=== PATIENT | male | born 1925 | race Caucasian/White ===

== ENCOUNTER 2016-04-24 11:24 | Inpatient (IN) | payer MEDICARE, BC ==
[~2016-04-24] VITALS: Ht 180.3 cm; Wt 97.3 kg
[~2016-04-24 11:24] MED LIST: AMLO5TAB2 PO; ASPI325T PO; CYAN1000P SQ; DULO1CAP2 PO; LISI-515 PO; METO25TA3 PO; MIRA33504 PO; POLYSOL14 EACH EYE; PRAV80TA2 PO; TYLE325T PO; VITA100064 PO
[2016-04-24 11:33] VITALS: BP 146/76; PULSE 60; RESP 20; TEMP 99; O2SAT 90
[2016-04-24 11:44] VITALS: O2SAT 95
[2016-04-24] MEDS ORDERED: RESP: ALBUTEROL 2.5 MG/IPRATROPIUM 0.5 MG NEB (SCH) NEB ONE ×2 (12:00)
--- NOTE | 2016-04-24 12:04 | PD ---
HPI Chief Complaint: Altered Mental Status Time Seen by Provider: 11:53 Travel History International Travel<30 days: No Contact w/Intl Traveler<30days: No Traveled to known affect area: No History of Present Illness HPI This patient is a [facility] resident who was sent primarily for evaluation of cough. He reports a dry hacking cough for 2-3 days. He denies fever or shortness of breath or chest pain. He has been a bit congested. Staff reported that he had some moments of confusion. He denies headache or head injury. He says in general he is doing okay. Symptoms severity is mild to moderate. No alleviating factors. Duration 2-3 days PFSH Past Medical History AAA: Yes (THORACIC AORTIC ANEURYSM) Atrial Fibrillation: Yes Autoimmune Disease: No Anxiety: Yes Depression: Yes Heart Rhythm Problems: Yes Cardiac Catheterization: Yes (CORONARY STENT) Cardiovascular Problems: Yes High Cholesterol: Yes Cerebrovascular Accident: Yes Coronary Artery Disease: Yes (RHEUMATIC AORTIC VALVE DISEASE ) Dementia: Yes (MILD) Diabetes: Yes (PRE-DIABETIC CONTROLLED WITH DIET) Patient Takes Glucophage: Yes Endocrine: Yes Gastrointestinal Disorders: Yes (HEMORRHOIDS) GERD: Yes Hiatal Hernia: Yes Hypertension: Yes Musculoskeletal: Yes (DDD OF CSP, OSTEOARTHRITIS) Neurologic: Yes (NEUROPATHY) Psychiatric: No Respiratory: Yes (PUULOMNARY EMBOLUS) Integumentary: Yes (BASAL CELL CA) Pancreatitis: Yes Pneumonia: Yes Thyroid Disease: Yes (GOITER ) Triglycerides - High: Yes Tetanus Vaccination: Unknown Past Surgical History Coronary Stent: Yes Genitourinary Surgery: Yes Social History Alcohol Use: No Tobacco Use: No Substance Use: No Allergies-Medications (Allergen,Severity, Reaction): Coded Allergies: No Known Allergies (Verified , 05/19/14) Reported Meds & Prescriptions Reported Meds & Active Scripts Active Reported [Robitussin Dm] 5-10 Ml PO Q6HR PRN ROBITUSSIN COUGH-CHEST CONGESTION 10MG-200MG/5ML Tessalon Perles (Benzonatate) 100 Mg Cap 100 Mg PO TID PRN Mucinex ER 12 HR (Guaifenesin) 600 Mg Rishi 600 Mg PO BID PRN Dulcolax Supp (Bisacodyl) 10 Mg Supp 10 Mg DE DAILY PRN [place] Opth Drops (Ketotifen Opth Drops) 0.025% Drops 1 Drop EACH EYE BID Tylenol (Acetaminophen) 325 Mg Tab 650 Mg PO Q6H PRN not to exceed 3000mg Tylenol in a 24 hr period Cyanocobalamin Inj (Cyanocobalamin) 1,000 Mcg/Ml Inj 1,000 Mcg SQ MONTHLY Vitamin D (Cholecalciferol) 1,000 Unit Tab 1,000 Units PO DAILY Duloxetine DR (Duloxetine HCl) 30 Mg Capdr 30 Mg PO DAILY Tylenol (Acetaminophen) 325 Mg Tab 650 Mg PO BID Miralax Powder (Polyethylene Glycol 3350 Powder) 17 Gm Powd 17 Gm PO MOWEFR Mix 1 capful (17gm) with 4-8 oz of water on Thursday,Thursday and Thursday-Hold for loose BM Amlodipine (Amlodipine Besylate) 5 Mg Tab 5 Mg PO BID Metoprolol Tartrate 25 Mg Tab 12.5 Mg PO BID Aspirin 325 Mg Tab 325 Mg PO DAILY Pravastatin 80 Mg Tab 80 Mg PO HS Lisinopril 20 Mg Tab 20 Mg PO DAILY Artificial Tears Opth Drops (Polyvinyl Alcohol-Povidone Opth Drops) 0.5-0.6% Soln 1 Drop EACH EYE BID PRN Review of Systems General / Constitutional: No: Fever Eyes: No: Visual changes HENT: Positive: Congestion, No: Headaches Cardiovascular: No: Chest Pain or Discomfort Respiratory: Positive: Cough, No: Shortness of Breath Gastrointestinal: No: Abdominal Pain Genitourinary: No: Dysuria Musculoskeletal: No: Pain Skin: No Rash Neurologic: Positive: Change in Mentation, No: Weakness Psychiatric: No: Depression Endocrine: No: Polydipsia Hematologic/Lymphatic: No: Easy Bruising Physical Exam Narrative GENERAL: Well-nourished, well-developed patient in no apparent distress. SKIN: Warm and dry. HEAD: Atraumatic. Normocephalic. EYES: Pupils equal and round. No scleral icterus. No injection or drainage. ENT: No nasal bleeding or discharge. Mucous membranes pink and moist. NECK: Trachea midline. No JVD. CARDIOVASCULAR: Regular rate and rhythm. No murmur appreciated. RESPIRATORY: No accessory muscle use. Some diffuse rhonchi with a rare expiratory wheeze. Breath sounds equal bilaterally. GASTROINTESTINAL: Abdomen soft, non-tender, nondistended. Hepatic and splenic margins not palpable. MUSCULOSKELETAL: No obvious deformities. No clubbing. No cyanosis. No edema. NEUROLOGICAL: Awake and alert. No obvious cranial nerve deficits. Motor grossly within normal limits. Normal speech. PSYCHIATRIC: Appropriate mood and affect; insight and judgment seems reasonable. Data Data Last Documented VS Vital Signs Date Time Temp Pulse Resp B/P Pulse Ox O2 Delivery O2 Flow Rate FiO2 04/24/16 13:23 62 24 156/74 94 Nasal Cannula 2 04/24/16 11:33 99.0 Orders Electrocardiogram (04/24/16 11:38) Complete Blood Count With Diff (04/24/16 11:38) Comprehensive Metabolic Panel (04/24/16 11:38) Urinalysis - C+S If Indicated (04/24/16 11:38) Chest, Single Ap (04/24/16 11:38) Ct Brain W/O Iv Contrast(Rout) (04/24/16 11:38) Iv Access Insert/Monitor (04/24/16 11:38) Ecg Monitoring (04/24/16 11:38) Oximetry (04/24/16 11:38) Influenzae A/B Antigen (04/24/16 11:53) Albuterol-Ipratropium Neb (Duoneb Neb) (04/24/16 12:00) Albuterol-Ipratropium Neb (Duoneb Neb) (04/24/16 12:00) Cath For Specimen (04/24/16 13:05) Admit Order (Ed Use Only) (04/24/16 14:11) Labs Laboratory Tests Test 04/24/16 04/24/16 12:00 13:00 White Blood Count 6.3 TH/MM3 Red Blood Count 5.93 MIL/MM3 Hemoglobin 16.9 GM/DL Hematocrit 51.6 % Mean Corpuscular Volume 87.1 FL Mean Corpuscular Hemoglobin 28.5 PG Mean Corpuscular Hemoglobin 32.7 % Concent Red Cell Distribution Width 15.5 % Platelet Count 127 TH/MM3 Mean Platelet Volume 9.4 FL Neutrophils (%) (Auto) 75.3 % Lymphocytes (%) (Auto) 10.5 % Monocytes (%) (Auto) 11.0 % Eosinophils (%) (Auto) 2.3 % Basophils (%) (Auto) 0.9 % Neutrophils # (Auto) 4.8 TH/MM3 Lymphocytes # (Auto) 0.7 TH/MM3 Monocytes # (Auto) 0.7 TH/MM3 Eosinophils # (Auto) 0.1 TH/MM3 Basophils # (Auto) 0.1 TH/MM3 CBC Comment DIFF FINAL Differential Comment Sodium Level 139 MEQ/L Potassium Level 4.4 MEQ/L Chloride Level 103 MEQ/L Carbon Dioxide Level 26.7 MEQ/L Anion Gap 9 MEQ/L Blood Urea Nitrogen 16 MG/DL Creatinine 1.02 MG/DL Estimat Glomerular Filtration 69 ML/MIN Rate Random Glucose 101 MG/DL Calcium Level 9.1 MG/DL Total Bilirubin 0.8 MG/DL Aspartate Amino Transf 17 U/L (AST/SGOT) Alanine Aminotransferase 17 U/L (ALT/SGPT) Alkaline Phosphatase 76 U/L Total Protein 7.5 GM/DL Albumin 3.9 GM/DL Urine Color YELLOW Urine Turbidity CLEAR Urine pH 5.5 Urine Specific [place] 1.024 Urine Protein 100 mg/dL Urine Glucose (UA) NEG mg/dL Urine Ketones NEG mg/dL Urine Occult Blood TRACE Urine Nitrite NEG Urine Bilirubin NEG Urine Urobilinogen 2.0 MG/DL Urine Leukocyte Esterase NEG Urine WBC 2 /hpf Urine Squamous Epithelial <1 /hpf Cells Urine Bacteria RARE /hpf Urine Hyaline Casts 1 /lpf Urine Mucus FEW /lpf Microscopic Urinalysis Comment CULT NOT INDICATED MDM Medical Decision Making Medical Screen Exam Complete: Yes Emergency Medical Condition: Yes Medical Record Reviewed: Yes Differential Diagnosis Pneumonia, bronchitis, hypoxemia Narrative Course I have reviewed the patient's electronic medical record. Reviewed his [facility] paperwork and medication list as well IV placed CBC shows no leukocytosis or anemia Metabolic profile is normal LFTs is normal Urinalysis is clean I gave him multiple breathing treatments Influenza is negative Brain CT shows small vessel ischemic change Chest x-ray shows stable findings of right atelectasis and compensated card of megaly without consolidation Despite multiple nebulizer treatments he is still rhonchorous and is hypoxic on room air with saturation of 88-89% On 2 L cannula he is 93-94% Patient minimizes his symptoms but is coughing and dyspneic and had significant altered mental status changes today I reviewed with medical residents who will admit Diagnosis Primary Impression: Hypoxia Additional Impression: Altered mental status, unspecified Admitting Information Admitting Physician Requests: Admit Ji Rubi MD Apr 24, 2016 12:04
[2016-04-24 12:10] LABS: AUTOMATED NEUTROPHIL # 4.8 TH/MM3 (1.8-7.7); BASOPHIL # 0.1 TH/MM3 (0-0.2); BASOPHIL % 0.9 % (0.0-2.0); EOSINOPHIL # 0.1 TH/MM3 (0-0.4); EOSINOPHIL % 2.3 % (0.0-4.0); HEMATOCRIT 51.6 % (39.0-51.0); HEMO FLAGS DIFF FINAL; LYMPH % 10.5 % (9.0-44.0); LYMPHOCYTE # 0.7 TH/MM3 (1.0-4.8); MEAN CELL VOLUME 87.1 FL (80.0-100.0); MEAN CORPUSCULAR HEMOGLOBIN 28.5 PG (27.0-34.0); MEAN CORPUSCULAR HGB CONC 32.7 % (32.0-36.0); NEUT % 75.3 % (16.0-70.0); PLATELET COUNT 127 TH/MM3 (150-450); RED BLOOD COUNT 5.93 MIL/MM3 (4.50-5.90); RED CELL DISTRIBUTION WIDTH 15.5 % (11.6-17.2); WHITE BLOOD COUNT 6.3 TH/MM3 (4.0-11.0)
[2016-04-24] MEDS ORDERED: MUCI600T PO (12:22)
[2016-04-24] MEDS ORDERED: DULC10SU3 PR (12:22)
[2016-04-24] MEDS ORDERED: ALAW0.02 EACH EYE (12:22)
[2016-04-24] MEDS ORDERED: ROBISYP6 PO (12:22)
[2016-04-24] MEDS ORDERED: BENZ100 PO (12:22)
[2016-04-24 12:32] LABS: ALT (GPT) 17 U/L (12-78); ANION GAP 9 MEQ/L (5-15); AST (GOT) 17 U/L (15-37); BICARBONATE 26.7 MEQ/L (21.0-32.0); BLOOD UREA NITROGEN 16 MG/DL (7-18); CHLORIDE 103 MEQ/L (98-107); GLOMERULAR FILTRATION RATE 69 ML/MIN (>89); POTASSIUM 4.4 MEQ/L (3.5-5.1); SODIUM (NA) 139 MEQ/L (136-145)
[2016-04-24 12:34] LABS: ALKALINE PHOSPHATASE 76 U/L (45-117); TOTAL BILIRUBIN ADULT 0.8 MG/DL (0.2-1.0)
--- NOTE | 2016-04-24 13:15 | RADRPT ---
EXAM DATE/TIME: 04/24/2016 11:56 [facility] COMPARISON: CHEST SINGLE AP, July 23, 2015, 11:07. INDICATIONS : Cough. MEDICAL HISTORY : None. SURGICAL HISTORY : Pacemaker. ENCOUNTER: Initial ACUITY: 1 day PAIN SCORE: 0/10 LOCATION: Bilateral chest FINDINGS: Portable AP view of the chest demonstrate stable mild enlargement of the cardiac silhouette. Single-l ead cardiac pacing device remains present. Lungs are underinflated there is stable linear scar at the right lung base. No effusion, consolidation, or pneumothorax is visualized. Bones and soft tissues d emonstrate no acute finding. CONCLUSION: Stable chest x-ray without an acute finding identified. There is stable mild enlargement of the cardi ac silhouette with chronic scar at the right lung base. Sotero Kapoor MD on April 24, 2016 at 13:12 Board Certified Radiologist. This report was verified electronically.
[2016-04-24 13:23] VITALS: BP 156/74; PULSE 62; RESP 24; O2SAT 94
--- NOTE | 2016-04-24 13:41 | RADRPT ---
EXAM DATE/TIME: 04/24/2016 13:08 [facility] COMPARISON: CT BRAIN W/O CONTRAST, July 20, 2015, 14:35. INDICATIONS : Altered mental status; loss of urinary bladder control. RADIATION DOSE: 56.35 CTDIvol (mGy) MEDICAL HISTORY : Cerebrovascular disease. Dementia. Cardiovascular diseaseHypertension SURGICAL HISTORY : None. ENCOUNTER: Initial ACUITY: 1 day PAIN SCALE: 0/10 LOCATION: cranial TECHNIQUE: Multiple contiguous axial images were obtained of the head. Using automated exposure control and adj ustment of the mA and/or kV according to patient size, radiation dose was kept as low as reasonably a chievable to obtain optimal diagnostic quality images. FINDINGS: CEREBRUM: There is stable generalized atrophy. Ventricles are normal in size. There is stable mild periventricu lar white matter low-attenuation. A stable old lacunae is present in the left subinsular region. No evidence of midline shift, mass lesion, hemorrhage or acute infarction. No extra-axial fluid collect ions are seen. POSTERIOR FOSSA: The cerebellum and brainstem demonstrate no acute finding. The 4th ventricle is midline. The cerebe llopontine angle is unremarkable. EXTRACRANIAL: There is a mucous retention cyst in the right maxillary antrum. SKULL: The calvaria is intact. No evidence of skull fracture. CONCLUSION: 1. Stable noncontrast head CT. No acute finding is identified. 2. Chronic changes include mild cerebral atrophy and periventricular white matter low attenuation uche racteristic of chronic microvascular ischemia. Sotero Kapoor MD on April 24, 2016 at 13:37 Board Certified Radiologist. This report was verified electronically.
[2016-04-24 14:30] LABS: BACTERIA, URINE RARE /hpf; BLOOD, URINE TRACE (NEG); COMMENT (UR) CULT NOT INDICATED; CULTURE IF INDICATED CULT NOT INDICATED; GLUCOSE,URINE NEG (NEG); HYALINE CAST, URINE 1 /lpf (RARE); KETONE, URINE NEG (NEG); MUCUS URINE FEW /lpf (OCC); NITRITE,URINE NEG (NEG); PH, URINE 5.5 (5.0-8.5); SQUAMOUS EPITHELIAL CELL URINE <1 /hpf (0-5); URINE COLOR YELLOW (YELLW/STRAW)
--- NOTE | 2016-04-24 15:56 | HHI.HP ---
HPI Service Family Medicine Primary Care Physician Dr. Velasquez, [facility] Admission Diagnosis hypoxia,AMS Diagnoses: International Travel<30 Days: No Contact w/Intl Traveler<30days: No Known Affected Area: No History of Present Illness Patient is an 89-year-old male with a past medical history of hypertension, CAD , hyperlipidemia, aortic stenosis, stroke, CAD s/p multiple drug-eluting stents in 2003, A. fib with bifascicular block s/p VVI Pacemaker placement, and dementia that presented to the [place] ED from [facility] with a chief complaint of altered mental status, fever, and cough for the past 2-3 days. Although the patient denies current symptoms, his nurse at [facility] states that he had a fever up to 101.9F and was acting weird such as peeing uncontrollably all over his room. In looking back to past records, it appears that the pt has baseline confusion and has had episodes of random urination before. PCP is Dr. Velasquez, [facility] (Janee Wright MD R1) Review of Systems ROS Limitations: Altered Mental Status Constitutional: COMPLAINS OF: Fever ([facility] 101F [facility]), DENIES: Chills Eyes: DENIES: Eye pain Ears, nose, mouth, throat: DENIES: Nasal discharge Respiratory: COMPLAINS OF: Cough, DENIES: Shortness of breath Cardiovascular: DENIES: Chest pain Gastrointestinal: DENIES: Abdominal pain, Diarrhea, Nausea, Vomiting Genitourinary: DENIES: Dysuria Musculoskeletal: COMPLAINS OF: Muscle aches (upper mid back from coughing), DENIES: Joint pain, Joint Swelling Integumentary: DENIES: Pruritus, Rash Neurologic: DENIES: Headache, Paresthesias Other Review of systems was difficult to obtain (Janee Wright MD R1) Past Family Social History Past Medical History Aortic stenosis Atrial fibrillation ( Mr. Ng's son is a director of clinical trials. He had his father on a non-vitamin K dependent anticoagulant in the past but due to falls he had stopped all but aspirin therapy). CAD s/p multiple stents Chronic pain syndrome Mild dementia GERD Hyperlipidemia Hypertension Mitral regurgitation Neuropathy PE and DVTs RBBB and left anterior fascicular block on EKG Thoracic aortic aneurism CVA 05/2014; transient right facial droop, slurred speech and AMS Dementia Past Surgical History - hiatal hernia repar Reported Medications Reported Meds & Active Scripts Active Reported [Robitussin Dm] 5-10 Ml PO Q6HR PRN ROBITUSSIN COUGH-CHEST CONGESTION 10MG-200MG/5ML Tessalon Perles (Benzonatate) 100 Mg Cap 100 Mg PO TID PRN Mucinex ER 12 HR (Guaifenesin) 600 Mg Rishi 600 Mg PO BID PRN Dulcolax Supp (Bisacodyl) [address] DAILY PRN [place] Opth Drops (Ketotifen Opth Drops) 0.025% Drops 1 Drop EACH EYE BID Tylenol (Acetaminophen) 325 Mg Tab 650 Mg PO Q6H PRN not to exceed 3000mg Tylenol in a 24 hr period Cyanocobalamin Inj (Cyanocobalamin) 1,000 Mcg/Ml Inj 1,000 Mcg SQ MONTHLY Vitamin D (Cholecalciferol) 1,000 Unit Tab 1,000 Units PO DAILY Duloxetine DR (Duloxetine HCl) 30 Mg Capdr 30 Mg PO DAILY Tylenol (Acetaminophen) 325 Mg Tab 650 Mg PO BID Miralax Powder (Polyethylene Glycol 3350 Powder) 17 Gm Powd 17 Gm PO MOWEFR Mix 1 capful (17gm) with 4-8 oz of water on Thursday,Thursday and Thursday-Hold for loose BM Amlodipine (Amlodipine Besylate) 5 Mg Tab 5 Mg PO BID Metoprolol Tartrate 25 Mg Tab 12.5 Mg PO BID Aspirin 325 Mg Tab 325 Mg PO DAILY Pravastatin 80 Mg Tab 80 Mg PO HS Lisinopril 20 Mg Tab 20 Mg PO DAILY Artificial Tears Opth Drops (Polyvinyl Alcohol-Povidone Opth Drops) 0.5-0.6% Soln 1 Drop EACH EYE BID PRN (Janee Wright MD R1) Allergies: Coded Allergies: No Known Allergies (Verified , 04/24/16) Family History + CAD Social History Marrital Status: Living Situation: living in an assisted living unit at [facility] Work history: retired food counter attendant Tobacco: previous remote smoker Alcohol: none Illicit drug use: none (Janee Wright MD R1) Physical Exam Vital Signs Vital Signs Date Time Temp Pulse Resp B/P Pulse Ox O2 Delivery O2 Flow Rate FiO2 04/24/16 13:23 62 24 156/74 94 Nasal Cannula 2 04/24/16 11:53 94 Nasal Cannula 2 04/24/16 11:44 95 Nasal Cannula 2 04/24/16 11:33 99.0 60 20 146/76 90 Physical Exam GENERAL: This is a well-nourished, well-developed patient, in no apparent distress. SKIN: No rashes, ecchymoses or lesions. Cool and dry. No sacral ulcers noted HEAD: Atraumatic. Normocephalic. No temporal or scalp tenderness. EYES: Pupils equal round and reactive. Injected sclera suggestive of acute conjunctivitis. Extraocular motions intact. ENT: Nose without bleeding, purulent drainage or septal hematoma. Throat without erythema, tonsillar hypertrophy or exudate. Expectorated sputum present in oropharynx. Uvula midline. Airway patent. NECK: Trachea midline. No JVD or lymphadenopathy. Supple, nontender, no meningeal signs. CARDIOVASCULAR: Irregular rhythm RESPIRATORY: Mild wheezing in bibasilar lung fong. No increased work of breathing or use of accessory muscles GASTROINTESTINAL: Abdomen soft, non-tender, nondistended. No hepato-splenomegaly , or palpable masses. No guarding. MUSCULOSKELETAL: Extremities without clubbing, cyanosis, or edema. No joint tenderness, effusion, or edema noted. No calf tenderness. NEUROLOGICAL: Awake and alert. Cranial nerves II through XII intact. Motor and sensory grossly within normal limits. Five out of 5 muscle strength in all muscle groups. Normal speech. Intact finger to nose Laboratory Laboratory Tests Test 04/24/16 04/24/16 12:00 13:00 White Blood Count 6.3 Red Blood Count 5.93 Hemoglobin 16.9 Hematocrit 51.6 Mean Corpuscular Volume 87.1 Mean Corpuscular Hemoglobin 28.5 Mean Corpuscular Hemoglobin 32.7 Concent Red Cell Distribution Width 15.5 Platelet Count 127 Mean Platelet Volume 9.4 Neutrophils (%) (Auto) 75.3 Lymphocytes (%) (Auto) 10.5 Monocytes (%) (Auto) 11.0 Eosinophils (%) (Auto) 2.3 Basophils (%) (Auto) 0.9 Neutrophils # (Auto) 4.8 Lymphocytes # (Auto) 0.7 Monocytes # (Auto) 0.7 Eosinophils # (Auto) 0.1 Basophils # (Auto) 0.1 CBC Comment DIFF FINAL Differential Comment Sodium Level 139 Potassium Level 4.4 Chloride Level 103 Carbon Dioxide Level 26.7 Anion Gap 9 Blood Urea Nitrogen 16 Creatinine 1.02 Estimat Glomerular Filtration 69 Rate Random Glucose 101 Calcium Level 9.1 Total Bilirubin 0.8 Aspartate Amino Transf 17 (AST/SGOT) Alanine Aminotransferase 17 (ALT/SGPT) Alkaline Phosphatase 76 Total Protein 7.5 Albumin 3.9 Urine Color YELLOW Urine Turbidity CLEAR Urine pH 5.5 Urine Specific [place] 1.024 Urine Protein 100 Urine Glucose (UA) NEG Urine Ketones NEG Urine Occult Blood TRACE Urine Nitrite NEG Urine Bilirubin NEG Urine Urobilinogen 2.0 Urine Leukocyte Esterase NEG Urine WBC 2 Urine Squamous Epithelial <1 Cells Urine Bacteria RARE Urine Hyaline Casts 1 Urine Mucus FEW Microscopic Urinalysis Comment CULT NOT INDICATED Date/Time Procedure Status Source Growth 04/24/16 12:30 Influenza Types A,B Antigen ([facility]) - Final Complete Nasal Washing NEGATIVE FOR FLU A AND B ANTIGEN.... (Janee Wright MD R1) Result Diagram: 04/24/16 1200 04/24/16 1200 Imaging Last [address] 04/24/16 1138 Signed Impressions: Service Date/Time: April 13:08 - CONCLUSION: 1. Stable noncontrast head CT. No acute finding is identified. 2. Chronic changes include mild cerebral atrophy and periventricular white matter low attenuation characteristic of chronic microvascular ischemia. Sotero Kapoor MD Chest X-Ray 04/24/16 1138 Signed Impressions: Service Date/Time: April 11:56 - CONCLUSION: Stable chest x-ray without an acute finding identified. There is stable mild enlargement of the cardiac silhouette with chronic scar at the right lung base. Sotero Kapoor MD Course In the ED, the patient's O2 saturation was 90%, which improved to 93-94% with supplemental oxygen. He also received 2 DuoNeb treatments. EKG was performed which showed electronic ventricular paced rhythm with no signs of an acute myocardial infarction. (Janee Wright MD R1) Assessment and Plan Assessment and Plan 89-year-old male with a past medical history of hypertension, CAD, hyperlipidemia, aortic stenosis, stroke, CAD s/p multiple drug-eluting stents in 2003, A. fib with bifascicular block s/p VVI PM placement, and dementia presents with cough, dyspnea, fever symptoms concerning for pneumonia versus viral respiratory infection versus bronchitis. Chest x-ray showed stable mild enlargement of cardiac silhouette with no acute findings. He will be admitted today diagnosis of clinical pneumonia and hypoxia to be treated with IV antibiotics and breathing treatments. Code Status DNR Discussed Condition With Seen and examined with Dr. Monreal (Janee Wright MD R1) Attending Attestation The patient has been seen and examined. The chart and all resident notes have been reviewed. I agree that inpatient care is appropriate and that a two midnight stay is expected for the reasons documented in the resident history and physical. I have discussed this with the resident and certify the resident s order for inpatient admission. (Alexandra Monreal MD) Problem List: (1) Altered mental status, unspecified Status: Acute Plan: The source of the patient's altered mental status is unclear, [facility] reports multiple episodes of urinating in the patient's room -Noncontrast head CT is stable with no acute changes. Chronic changes indicative of chronic microvascular ischemia -Notably, the pt does have dementia -WBC WNL at 6.3 -Urinalysis negative for infection -At this time, the plan is mostly supportive care -Neurochecks every 4 hours -OOB with assistance -Fall precautions -Monitor Is & Os -Physical therapy consult (2) PNA (pneumonia) Status: Acute Plan: -Patient afebrile on admission but reported fever of 101.9 at [facility] -Chest x-ray does not indicate an acute pulmonary process -However patient has been coughing with sputum expectoration -Possible that patient has atypical pneumonia such as mycoplasma or viral upper respiratory infection -Legionella and pneumococcal antigen negative -Sputum Gram stain and culture pending -Adult respiratory panel pending -Will treat with Levaquin 750 mg IV every 24 hours -DuoNeb every 4 hours -Albuterol neb every 4 hours when necessary shortness of breath -Tessalon Perles and Mucinex for cough as needed -Zofran 4 mg IV every 6 hours as needed for nausea/vomiting -Continue home eyedrops for acute conjunctivitis -Continuous pulse oximetry with supplemental oxygen -Vital signs every 4 hours (3) Chronic medical problems Status: Acute Plan: CAD - continue aspirin 325 mg daily due to history of stents, metoprolol 12.5 mg by mouth twice a day HTN - continue amlodipine 5 mg by mouth twice a day, lisinopril 20 mg by mouth daily, hydralazine PO when necessary HLD - continue pravastatin 80 mg by mouth at bedtime (4) FEN/DVT PPX/GI PPX Status: Acute Plan: Fluids: Oral fluids only Electrolytes: Will monitor and replace as needed Nutrition: Heart healthy diet DVT Prophylaxis: Lovenox 40mg subcutaneous GI Prophylaxis: Protonix 40mg PO daily (Janee Wright MD R1) Physician Certification 2 Midnight Certification Type: Admission for Inpatient Services Order for Inpatient Services The services are ordered in accordance with Medicare regulations or non- Medicare payer requirements, as applicable. In the case of services not specified as inpatient-only, they are appropriately provided as inpatient services in accordance with the 2-midnight benchmark. Estimated LOS (days): 3 days is the estimated time the patient will need to remain in the hospital, assuming treatment plan goals are met and no additional complications. Post-Hospital Plan: Prison/[facility] (Janee Wright MD R1) Problem Qualifiers (1) PNA (pneumonia): Qualified Code: J18.9 - Pneumonia due to infectious organism, unspecified laterality, unspecified part of lung Janee Wright MD R1 Apr 24, 2016 15:56 Alexandra Monreal MD Apr 25, 2016 08:24
[2016-04-24] MEDS ORDERED: hydrALAZINE HCL 10 MG TAB PO PRN (16:45)
[2016-04-24] MEDS ORDERED: ONDANSETRON HCL 4 MG/2 ML VIAL IV PRN (16:45)
[2016-04-24] MEDS ORDERED: ACETAMINOPHEN 325 MG TAB PO PRN (16:45)
[2016-04-24] MEDS ORDERED: DOCUSATE SODIUM 50 MG/SENNA 8.6 MG TAB PO PRN (16:45)
[2016-04-24 16:55] VITALS: BP 147/70; PULSE 76; RESP 24; TEMP 98.9; O2SAT 94
[2016-04-24] MEDS ORDERED: RESP: ALBUTEROL 2.5 MG/IPRATROPIUM 0.5 MG NEB (SCH) NEB (17:00)
[2016-04-24] MEDS ORDERED: RESP: ALBUTEROL 2.5 MG/3 ML NEB (PRN) NEB ×2 (17:00→21:00)
[2016-04-24] MEDS ORDERED: guaiFENesin E.R. 600 MG TAB PO PRN (17:00)
[2016-04-24] MEDS ORDERED: POLYVINYL ALC-POVIDONE 1.4/0.6% PF OPTH SOLN 0.4 ML 30 CT EACH EYE PRN (17:15)
--- NOTE | 2016-04-24 17:21 | HHI.FPPN ---
Subjective Subjective Patient seen and examined. Case reviewed and discussed Please refer to resident H&P for further details regarding HPI, ROS, PMH, SurgHx , FH and SocHx In summary, patient is a pleasant 89yoM who resides at [facility] with a PMH significant for DVT wit PE, CAD s/p multiple drug-eluting stents in 2003, HTN, HL, CVA, and afib with bifascicular block s/p VVI PM placement. He presented to the ED today after report from his [facility] that he had suffered intermittent fevers, coughing over the last several days and had increased confusion. Dr. Velasquez cares for patient at [facility]. According to the patient's son, Hernandez, this is consistent behavior to prior episodes if infection. Upon arrival to the ED, the patient was noted to be satting at 90% which improved with supplemental oxygen therapy. He is seen resting in his hospital bed, denying any pain or specific complaints , but is actively coughing. Oxygen 92% on 2LNC. Hospital Objective Objective Last Impressions Head CT 04/24/16 1138 Signed Impressions: Service Date/Time: April 13:08 - CONCLUSION: 1. Stable noncontrast head CT. No acute finding is identified. 2. Chronic changes include mild cerebral atrophy and periventricular white matter low attenuation characteristic of chronic microvascular ischemia. Sotero Kapoor MD Chest X-Ray 04/24/168 Signed Impressions: Service Date/Time: April 11:56 - CONCLUSION: Stable chest x-ray without an acute finding identified. There is stable mild enlargement of the cardiac silhouette with chronic scar at the right lung base. Sotero Kapoor MD Laboratory Tests - Abnormals Test 04/24/16 04/24/16 12:00 13:00 Red Blood Count 5.93 MIL/MM3 Hematocrit 51.6 % Platelet Count 127 TH/MM3 Neutrophils (%) (Auto) 75.3 % Monocytes (%) (Auto) 11.0 % Lymphocytes # (Auto) 0.7 TH/MM3 Estimat Glomerular Filtration 69 ML/MIN Rate Urine Protein 100 mg/dL Urine Occult Blood TRACE Urine Bacteria RARE /hpf Urine Mucus FEW /lpf Vital Signs 04/24/16 04/24/16 04/24/169/17 11:33 11:44 11:53 13:23 Temp 99.0 Pulse 60 62 Resp 20 24 B/P 146/76 156/74 Pulse Ox 90 95 94 94 O2 Delivery Nasal Cannula Nasal Cannula Nasal Cannula O2 Flow Rate 2 2 2 04/24/16 16:55 Temp 98.9 Pulse 76 Resp 24 B/P 147/70 Pulse Ox 94 O2 Delivery Nasal Cannula O2 Flow Rate 2 Physical exam GENERAL: Pleasantly confused elderly male, resting in bed. Awake and interactive. SKIN: Warm and dry without rash. HEAD: Normocephalic. AT EYES: No scleral icterus. Mild symmetric scleral injection, no drainage. NECK: Supple, trachea midline. Normal JVD, no palpable lymphadenopathy. CARDIOVASCULAR: Distant heart sounds with irregularly irregular rhythm, normal rate with 1/6 TWAN, no audible gallops or rubs. RESPIRATORY: Breath sounds with scant exp wheezing and coarseness at bilateral bases posteriorly, R>L. No accessory muscle use. No increased work of breathing. GASTROINTESTINAL: Abdomen soft, non-tender, nondistended. Obese. Normal active BS. MUSCULOSKELETAL: No cyanosis, or edema. No calf tenderness. BACK: Nontender without obvious deformity. No CVA tenderness. NEURO: Awake and alert. Able to follow commands. CN grossly intact. 5/5 strength x 4. Oriented x 2, unable to tell me the year. Assessment Assessment 89yoM admitted with: Hypoxia, increased confusion and bronchitis/clinical PNA PLAN PLAN Check influenza, legionella, strep antigens Supplemental oxygen as needed Empiric therapy with Levaquin If cough becomes productive, obtain sputum culture Breathing treatments OOB with assistance only as patient is a high fall risk PT Check UA Resume home medications Continue ASA given cardiac stenting I did discuss the case with the patient's son, Dr. Ng, who confirmed that patient is a DNR. Patient seen and examined. Case reviewed and discussed Agree with plan of care as discussed with me and documented in the resident note. Alexandra Monreal MD Apr 24, 2016 17:21
[2016-04-24] MEDS ORDERED: LEVOFLOXACIN 750 MG PREMIX INJ 150 ML IV SCH (18:00)
[2016-04-24 20:26] VITALS: BP 129/70
[2016-04-24 20:36] LABS: BOR. HOLMESII NOT DETECTED (NOT DETECT); BOR. PARA/BRONCH NOT DETECTED (NOT DETECT); BOR. PERTUSSIS NOT DETECTED (NOT DETECT); INFLUENZA B NOT DETECTED (NOT DETECT); RESP SYNCYTIAL VIRUS A NOT DETECTED (NOT DETECT); RESP SYNCYTIAL VIRUS B NOT DETECTED (NOT DETECT)
[2016-04-24] MEDS: amLODIPine BESYLATE 5 MG TAB PO SCH (20:55)
[2016-04-24] MEDS: METOPROLOL TARTRATE 25 MG TAB PO SCH (20:55)
[2016-04-24] MEDS: PRAVASTATIN SOD 80 MG TAB PO SCH (20:55)
[2016-04-24] MEDS: ENOXAPARIN SODIUM 40 MG/0.4 ML SYRINGE SQ SCH (20:56)
[2016-04-24] MEDS ORDERED: [UNRECOGNIZED DRUG - OTHER] EACH EYE SCH (21:00)
[2016-04-24] MEDS: RESP: ALBUTEROL 2.5 MG/IPRATROPIUM 0.5 MG NEB (SCH) NEB ×2 (21:00→23:53)
[2016-04-24 21:05] VITALS: BP 137/75; PULSE 72; RESP 20; TEMP 99.7; O2SAT 91
[2016-04-24] MEDS: BENZONATATE 100 MG CAP PO PRN (23:31)
[2016-04-25] VITALS (11 sets, daily range): BP systolic 113–165; BP diastolic 56–80; PULSE 60–73; RESP 18–20; TEMP 96.2–98.9; O2SAT 90–96
[2016-04-25] MEDS: RESP: ALBUTEROL 2.5 MG/IPRATROPIUM 0.5 MG NEB (SCH) NEB ×5 (04:17→20:06)
[2016-04-25] MEDS: amLODIPine BESYLATE 5 MG TAB PO SCH (08:16)
[2016-04-25] MEDS: CHOLECALCIFEROL (VIT D3) 1000 UNIT TAB PO SCH (08:16)
[2016-04-25] MEDS: METOPROLOL TARTRATE 25 MG TAB PO SCH (08:17)
[2016-04-25] MEDS: LISINOPRIL 20 MG TAB PO SCH (08:17)
[2016-04-25] MEDS: ASPIRIN EC 81 MG TABEC PO SCH (08:17)
[2016-04-25] MEDS: DULoxetine HCl DR 30 MG CAP PO SCH (08:28)
[2016-04-25] MEDS ORDERED: SYRINGE/BAG 1 EA PO SCH (09:00)
[2016-04-25] MEDS ORDERED: ASPIRIN 325 MG TAB PO SCH (09:00)
--- NOTE | 2016-04-25 09:16 | RADRPT ---
EXAM DATE/TIME: 04/25/2016 08:59 [place] COMPARISON: CHEST SINGLE AP, April 24, 2016, 11:56. INDICATIONS : Cough and shortness of breath. MEDICAL HISTORY : None. SURGICAL HISTORY : Pacemaker. Stent. ENCOUNTER: Initial ACUITY: 1 week PAIN SCORE: 0/10 LOCATION: Bilateral chest FINDINGS: Trace bibasilar atelectasis. No pleural effusion seen. No pneumothorax. Mild cardiomegaly is stable. Left subclavian transvenous pacer with pacing lead again noted. Coronary artery stents are seen. CONCLUSION: Minimal bibasilar atelectasis. Mild cardiomegaly unchanged. Sotero Maloney MD on April 25, 2016 at 9:13 Board Certified Radiologist. This report was verified electronically.
[2016-04-25 11:52] LABS: AUTOMATED NEUTROPHIL # 2.8 TH/MM3 (1.8-7.7); BASOPHIL % 0.5 % (0.0-2.0); EOSINOPHIL # 0.2 TH/MM3 (0-0.4); EOSINOPHIL % 3.4 % (0.0-4.0); HEMATOCRIT 45.8 % (39.0-51.0); HEMO FLAGS DIFF FINAL; LYMPH % 18.7 % (9.0-44.0); LYMPHOCYTE # 0.9 TH/MM3 (1.0-4.8); MEAN CELL VOLUME 87.5 FL (80.0-100.0); MEAN CORPUSCULAR HEMOGLOBIN 28.6 PG (27.0-34.0); MEAN CORPUSCULAR HGB CONC 32.8 % (32.0-36.0); MONO % 18.8 % (0.0-8.0); NEUT % 58.6 % (16.0-70.0); PLATELET COUNT 107 TH/MM3 (150-450); RED BLOOD COUNT 5.24 MIL/MM3 (4.50-5.90); RED CELL DISTRIBUTION WIDTH 15.1 % (11.6-17.2); WHITE BLOOD COUNT 4.8 TH/MM3 (4.0-11.0)
[2016-04-25 12:17] LABS: ALKALINE PHOSPHATASE 59 U/L (45-117); ALT (GPT) 14 U/L (12-78); ANION GAP 10 MEQ/L (5-15); AST (GOT) 17 U/L (15-37); BICARBONATE 28.5 MEQ/L (21.0-32.0); BLOOD UREA NITROGEN 17 MG/DL (7-18); CHLORIDE 102 MEQ/L (98-107); GLOMERULAR FILTRATION RATE 67 ML/MIN (>89); MAGNESIUM 2.1 MG/DL (1.5-2.5); POTASSIUM 3.9 MEQ/L (3.5-5.1); SODIUM (NA) 140 MEQ/L (136-145); TOTAL BILIRUBIN ADULT 0.7 MG/DL (0.2-1.0)
--- NOTE | 2016-04-25 13:51 | HHI.FPPN ---
Subjective Remarks No acute events overnight. Afebrile, vital signs stable. Patient hypoxic overnight requiring 2 L nasal cannula. Denies chest pain or shortness of breath. (Treva Carvajal MD R3) Objective Vitals Vital Signs Date Time Temp Pulse Resp B/P Pulse Ox O2 Delivery O2 Flow Rate FiO2 04/25/16 09:36 96 Nasal Cannula 2.00 04/25/16 07:52 94 04/25/16 04:22 91 Nasal Cannula 2.00 04/25/16 04:00 96.6 60 20 123/73 94 04/25/16 02:30 Nasal Cannula 2.00 04/25/16 00:38 19 04/25/16 00:00 90 Nasal Cannula 2.00 04/25/16 00:00 98.9 73 20 165/76 90 04/24/16 23:00 Nasal Cannula 2.00 04/24/16 21:05 99.7 72 20 137/75 91 04/24/16 20:26 72 20 129/70 94 Nasal Cannula 2 04/24/16 16:55 98.9 76 24 147/70 94 Nasal Cannula 2 I/O 04/24/16 04/24/16 04/24/16 04/25/16 04/25/16 04/25/16 07:00 15:00 23:00 07:00 15:00 23:00 Intake Total 240 ml Output Total 200 ml Balance -200 ml 240 ml Intake Oral 240 ml Output Urine Total 200 ml # Voids 1 2 # Bowel Movements 0 2 (Treva Carvajal MD R3) Result Diagram: 04/25/16 1126 04/25/16 1126 Imaging Last Impressions Chest X-Ray 04/25/16 0000 Signed Impressions: Service Date/Time: Monday, April 25, 2016 08:59 - CONCLUSION: Minimal bibasilar atelectasis. Mild cardiomegaly unchanged. Sotero Maloney MD Head CT 04/24/16 1138 Signed Impressions: Service Date/Time: April 13:08 - CONCLUSION: 1. Stable noncontrast head CT. No acute finding is identified. 2. Chronic changes include mild cerebral atrophy and periventricular white matter low attenuation characteristic of chronic microvascular ischemia. Sotero Kapoor MD Objective Remarks Gen.: No acute distress Head: Normocephalic. Atraumatic. EENT: Pupils equal round and reactive to light. Nose without drainage. Airway intact. Throat without injection. Cardiovascular: Irregularly irregular rhythm, normal rate with 1/6 TWAN, no audible gallops or rubs. Respiratory: Rhonchi and slight wheezes throughout. Abdomen: Soft, nontender, nondistended. No peritoneal signs. Musculoskeletal: No gross deformities. No edema. Skin: No obvious rashes or erythema. Neuro: Sensory and motor grossly intact. Cranial nerves II through XII grossly intact. A and O 2. (Treva Carvajal MD R3) A/P Assessment and Plan 89-year-old male with a past medical history of hypertension, CAD, hyperlipidemia, aortic stenosis, stroke, CAD s/p multiple drug-eluting stents in 2003, A. fib with bifascicular block s/p VVI PM placement, and dementia presents with cough, dyspnea, fever symptoms concerning for pneumonia versus viral respiratory infection versus bronchitis. Chest x-ray showed stable mild enlargement of cardiac silhouette with no acute findings. He was admitted with diagnosis of clinical pneumonia and hypoxia to be treated with IV antibiotics and breathing treatments. Discharge Planning To home likely tomorrow (Treva Carvajal MD R3) Attending Attestation Patient seen and examined with the resident team this am. Case reviewed and discussed Agree with plan of care as discussed with me and documented in the resident note. Patient more alert and closer to baseline today compared to admission. He was able to ambulate with PT 120 feet. Assisted with IS at the bedside this morning. Tolerating diet without difficulty. Will continue to encourage OOB with assistance and wean oxygen as tolerated ( Alexandra Monreal MD) Problem List: (1) Altered mental status, unspecified Status: Acute Plan: The source of the patient's altered mental status is unclear, [facility] reports multiple episodes of urinating in the patient's room. History of dementia. No leukocytosis, UA negative. -Noncontrast head CT is stable with no acute changes. Chronic changes indicative of chronic microvascular ischemia. -Patient with clinical pneumonia as probable source. (2) PNA (pneumonia) Status: Acute Plan: Patient with history of fevers and productive cough. Meets criteria for clinical pneumonia. Legionella and pneumococcal antigens negative. No leukocytosis. Chest x-ray clear. Patient continues to require supplemental oxygen. Levaquin 750 mg IV every 24 hours Duo nebs (3) Chronic medical problems Status: Acute Plan: CAD - continue aspirin 162 mg daily due to history of stents, metoprolol 12.5 mg by mouth twice a day HTN - continue amlodipine 5 mg by mouth twice a day, lisinopril 20 mg by mouth daily, hydralazine PO when necessary HLD - continue pravastatin 80 mg by mouth at bedtime (4) FEN/DVT PPX/GI PPX Status: Acute Plan: Fluids: Oral fluids only Electrolytes: Will monitor and replace as needed Nutrition: Heart healthy diet DVT Prophylaxis: Lovenox 40mg subcutaneous GI Prophylaxis: Protonix 40mg PO daily (Treva Carvajal MD R3) Problem Qualifiers (1) PNA (pneumonia): Qualified Code: J18.9 - Pneumonia due to infectious organism, unspecified laterality, unspecified part of lung Treva Carvajal MD R3 Apr 25, 2016 13:51 Alexandra Monreal MD Apr 25, 2016 16:21
[2016-04-25] MEDS ORDERED: LEVOFLOXACIN 750 MG TAB PO SCH (18:00)
--- NOTE | 2016-04-25 20:17 | EKG ---
Date Performed: 04/24/2016 Time Performed: 11:50:59 PTAGE: 89 years EKG: ELECTRONIC VENTRICULAR PACEMAKER ABNORMAL RHYTHM ECG PREVIOUS TRACING : 07/20/2015 14.12 Compared to the previous tracing, previously afib with slo w ventricular response DOCTOR: Moiz Gongora Interpretating Date/Time 04/25/2016 20:16:05
[2016-04-25] MEDS ORDERED: POLYETHYLENE GLYCOL 17 GM PKG PO SCH (21:00)
[2016-04-26] VITALS (11 sets, daily range): BP systolic 118–144; BP diastolic 59–82; PULSE 60–94; RESP 18–22; TEMP 96.5–97.6; O2SAT 90–98
[2016-04-26] MEDS: ENOXAPARIN SODIUM 40 MG/0.4 ML SYRINGE SQ SCH ×2 (00:16→21:04)
[2016-04-26] MEDS: METOPROLOL TARTRATE 25 MG TAB PO SCH ×3 (00:17→21:03)
[2016-04-26] MEDS: BENZONATATE 100 MG CAP PO PRN (00:17)
[2016-04-26] MEDS: amLODIPine BESYLATE 5 MG TAB PO SCH ×3 (00:17→21:03)
[2016-04-26] MEDS: PRAVASTATIN SOD 80 MG TAB PO SCH ×2 (00:18→21:03)
[2016-04-26] MEDS: RESP: ALBUTEROL 2.5 MG/IPRATROPIUM 0.5 MG NEB (SCH) NEB ×6 (04:31→19:35)
[2016-04-26 07:29] LABS: AUTOMATED NEUTROPHIL # 2.7 TH/MM3 (1.8-7.7); BASOPHIL % 0.3 % (0.0-2.0); EOSINOPHIL # 0.3 TH/MM3 (0-0.4); EOSINOPHIL % 6.7 % (0.0-4.0); HEMATOCRIT 46.3 % (39.0-51.0); HEMO FLAGS DIFF FINAL; LYMPH % 25.7 % (9.0-44.0); LYMPHOCYTE # 1.3 TH/MM3 (1.0-4.8); MEAN CELL VOLUME 87.8 FL (80.0-100.0); MEAN CORPUSCULAR HEMOGLOBIN 28.3 PG (27.0-34.0); MEAN CORPUSCULAR HGB CONC 32.2 % (32.0-36.0); MONO % 13.8 % (0.0-8.0); NEUT % 53.5 % (16.0-70.0); PLATELET COUNT 105 TH/MM3 (150-450); RED BLOOD COUNT 5.27 MIL/MM3 (4.50-5.90); RED CELL DISTRIBUTION WIDTH 15.1 % (11.6-17.2); WHITE BLOOD COUNT 5.1 TH/MM3 (4.0-11.0)
[2016-04-26 07:45] LABS: BICARBONATE 29.6 MEQ/L (21.0-32.0); POTASSIUM 4.1 MEQ/L (3.5-5.1)
[2016-04-26] MEDS: ASPIRIN EC 81 MG TABEC PO SCH (08:20)
[2016-04-26] MEDS: CHOLECALCIFEROL (VIT D3) 1000 UNIT TAB PO SCH (08:20)
[2016-04-26] MEDS: DULoxetine HCl DR 30 MG CAP PO SCH (08:20)
[2016-04-26] MEDS: LISINOPRIL 20 MG TAB PO SCH (08:20)
--- NOTE | 2016-04-26 08:54 | HHI.FPPN ---
Subjective Remarks Patient is doing well this morning. He states he feels better than yesterday. He understands he is in [facility]. However, he had to be told that he resides at [facility]. He is in good spirits and is making jokes throughout the interview. He had a bowel movement yesterday. No problems urinating. He is having some mild left upper neck musculoskeletal discomfort. Otherwise, he denies chest pain, fever, chills. (Robert Jimenes MD R2) Objective Vitals Vital Signs Date Time Temp Pulse Resp B/P Pulse Ox O2 Delivery O2 Flow Rate FiO2 04/26/16 08:26 Nasal Cannula 2.00 04/26/16 08:00 97.6 72 18 136/82 97 04/26/16 07:42 96 Nasal Cannula 2.00 04/26/16 04:33 93 21 04/26/16 04:07 97.1 63 20 121/65 92 04/26/16 02:00 Nasal Cannula 2.00 04/26/16 00:27 96.5 62 22 144/74 92 04/26/16 00:05 90 21 04/25/16 22:00 62 04/25/16 22:00 Nasal Cannula 2.00 04/25/16 21:00 Nasal Cannula 2.00 04/25/16 20:38 97.5 64 18 127/80 94 04/25/16 20:08 90 21 04/25/16 16:13 97.0 60 20 126/71 94 04/25/16 15:36 96.9 69 20 113/56 95 04/25/16 12:00 96.2 62 20 121/67 94 04/25/16 09:36 96 Nasal Cannula 2.00 I/O 04/25/16 04/25/16 04/25/16 04/26/16 04/26/16 04/26/16 07:00 15:00 23:00 07:00 15:00 23:00 Intake Total 240 ml 240 ml Output Total 2 ml Balance 240 ml 238 ml Intake Oral 240 ml 240 ml Output Urine Total 2 ml # Voids 2 1 2 # Bowel Movements 0 2 3 (Robert Jimenes MD R2) Result Diagram: 04/26/16 0700 04/26/16 0700 Imaging Last Impressions Chest X-Ray 04/25/16 0000 Signed Impressions: Service Date/Time: Monday, April 25, 2016 08:59 - CONCLUSION: Minimal bibasilar atelectasis. Mild cardiomegaly unchanged. Sotero Maloney MD Head CT 04/24/16 1138 Signed Impressions: Service Date/Time: April 13:08 - CONCLUSION: 1. Stable noncontrast head CT. No acute finding is identified. 2. Chronic changes include mild cerebral atrophy and periventricular white matter low attenuation characteristic of chronic microvascular ischemia. Sotero Kapoor MD Objective Remarks Gen.: No acute distress Head: Normocephalic. Atraumatic. EENT: Pupils equal round and reactive to light. Nose without drainage. Airway intact. Throat without injection. Cardiovascular: normal rate with 1/6 TWAN, no audible gallops or rubs. Respiratory: Rhonchi and slight wheezes throughout. Abdomen: Soft, nontender, nondistended. No peritoneal signs. Musculoskeletal: No gross deformities. No edema. Skin: No obvious rashes or erythema. Neuro: Sensory and motor grossly intact. Cranial nerves II through XII grossly intact. A and O 2. (Robert Jimenes MD R2) A/P Assessment and Plan 89-year-old male patient who resides from [facility] presented with altered mental status and hypoxemia on 04/24. He is currently improving with oxygen and antibiotics. Currently undergoing treatment for clinical pneumonia. Discharge Planning Likely today to [facility]. PT recommends PT at rehabilitation. (Robert Jimenes MD R2) Attending Attestation Patient seen and examined. Case reviewed and discussed Agree with plan of care as discussed with me and documented in the resident note. (Alexandra Monreal MD) Problem List: (1) Altered mental status, unspecified Status: Resolved Plan: This is likely the patient's baseline. History of dementia. -Noncontrast head CT is stable with no acute changes. Chronic changes indicative of chronic microvascular ischemia. -Patient with clinical pneumonia as probable source. See below (2) PNA (pneumonia) Status: Acute Plan: Patient with history of fevers and productive cough. Meets criteria for clinical pneumonia. Legionella and pneumococcal antigens negative. No leukocytosis. Chest x-ray clear. Patient continues to require supplemental oxygen. Levaquin 750 mg by mouth every 24 hours (day #3 of antibiotic treatment) Duo nebs Tessalon Perles Mucinex 600 mg by mouth twice a day when necessary nasal congestion Oxygen walk test today to assess home oxygen needs. (3) Physical deconditioning Status: Acute Plan: Physical therapy consulted. PT recommends PT at home. No equipment is needed as the patient has equipment. Nursing order to get patient out of the bed at least 3 times a day Oxygen walk test to assess for oxygen need (4) Chronic medical problems Status: Acute Plan: CAD - continue aspirin 162 mg daily due to history of stents, metoprolol 12.5 mg by mouth twice a day HTN - continue amlodipine 5 mg by mouth twice a day, lisinopril 20 mg by mouth daily, hydralazine PO when necessary HLD - continue pravastatin 80 mg by mouth at bedtime Depression - continue Cymbalta 30 mg by mouth daily Constipation - MiraLAX by mouth (hold for diarrhea) (5) FEN/DVT PPX/GI PPX Status: Acute Plan: Fluids: Oral fluids only Electrolytes: Will monitor and replace as needed Nutrition: Heart healthy diet DVT Prophylaxis: Lovenox 40mg subcutaneous GI Prophylaxis: Protonix 40mg PO daily (Robert Jimenes MD R2) Problem Qualifiers (1) PNA (pneumonia): Qualified Code: J18.9 - Pneumonia due to infectious organism, unspecified laterality, unspecified part of lung Robert Jimenes MD R2 Apr 26, 2016 08:54 Alexandra Monreal MD Apr 28, 2016 09:08
[2016-04-26] MEDS ORDERED: ASPI81TA11 PO (11:54)
[2016-04-26] MEDS ORDERED: LEVA750T PO (11:55)
--- NOTE | 2016-04-26 11:55 | HHI.DCPOC ---
Discharge Care Plan Diagnosis: (1) PNA (pneumonia) (2) Dementia (3) Altered mental status, unspecified (4) Physical deconditioning Goals to Promote Your Health * To prevent worsening of your condition and complications * To maintain your health at the optimal level Directions to Meet Your Goals Take your medications as prescribed Follow your dietary instruction Follow activity as directed Keep your appointments as scheduled Take your immunizations and boosters as scheduled If your symptoms worsen call your PCP, if no PCP go to Urgent Care Center or Emergency Room Smoking is Dangerous to Your Health. Avoid second hand smoke Call the 24-hour hour crisis hotline for domestic abuse at Robert Jimenes MD R2 Apr 26, 2016 11:55
--- NOTE | 2016-04-26 11:59 | HHI.FF ---
Face to Face Verification Diagnosis: (1) Hypoxia (2) Pneumonia (3) Physical deconditioning (4) Altered mental status, unspecified Physical Therapy Order: Evaluate and Treat, Improve ambulation, Strength and gait training Home Health Nursing Order: Medical education (Please teach caretakers to provide incentive spirometry at bedside 2-3 times each hour while awake) Signs/symptoms of disease process I have seen patient Braxton Ng on 04/26/16. My clinical findings support the need for the requested home health care services because: Ltd mobility - disease progression Patient has SOB Deconditioned w/ increased weakness Med compliance is questionable Limited ability to care for self High risk of falls I certify that my clinical findings support that this patient is homebound because: Impaired cognitive ability/safety Unsteady gait/balance Unsafe to leave home unassisted Robert iJmenes MD R2 Apr 26, 2016 11:59
[2016-04-26] MEDS ORDERED: MENTHOL LOZENGE BUCCAL PRN (12:00)
[2016-04-26] MEDS ORDERED: LEVOFLOXACIN 750 MG TAB PO ONE (12:15)
[2016-04-26] MEDS ORDERED: OXYGENTANK NAS.CANULA ×2 (13:32→15:15)
--- NOTE | 2016-04-26 16:45 | HHI.DS ---
Janee Wright MD R1 04/26/16 1645: Discharge Summary Admission Date Apr 24, 2016 at 14:20 Discharge Date: Apr 27, 2016 Admitting Diagnosis hypoxia,AMS (1) Altered mental status, unspecified Diagnosis: Secondary (2) PNA (pneumonia) Diagnosis: Principal (3) Physical deconditioning Diagnosis: Secondary (4) Chronic medical problems Diagnosis: Secondary Brief History Patient is an 89-year-old male with a past medical history of hypertension, CAD , hyperlipidemia, aortic stenosis, stroke, CAD s/p multiple drug-eluting stents in 2003, A. fib with bifascicular block s/p VVI Pacemaker placement, and dementia that presented to the [place] ED from [facility], [place] with a chief complaint of altered mental status, fever, and cough for the past 2-3 days. Although the patient denies current symptoms, his nurse at [facility], [place] states that he had a fever up to 101.9F and was acting weird such as peeing uncontrollably all over his room. In looking back to past records, it appears that the pt has baseline confusion and has had episodes of random urination before. PCP is Dr. Velasquez, [facility] CBC/BMP: 04/26/16 0700 04/26/16 0700 Significant Findings Laboratory Tests Test 04/24/16 04/24/16 04/25/16 04/26/16 12:00 13:00 11:26 07:00 Red Blood Count 5.93 MIL/MM3 (4.50-5.90) Hematocrit 51.6 % (39.0-51.0) Platelet Count 127 TH/MM3 107 TH/MM3 105 TH/MM3 (150-450) (150-450) (150-450) Neutrophils (%) (Auto) 75.3 % (16.0-70.0) Monocytes (%) (Auto) 11.0 % 18.8 % 13.8 % (0.0-8.0) (0.0-8.0) (0.0-8.0) Lymphocytes # (Auto) 0.7 TH/MM3 0.9 TH/MM3 (1.0-4.8) (1.0-4.8) Estimat Glomerular Filtration 69 ML/MIN (>89) 67 ML/MIN (>89) 77 ML/MIN (>89) Rate Urine Protein 100 mg/dL (NEG-TRACE) Urine Occult Blood TRACE (NEG) Urine Bacteria RARE /hpf (NONE) Urine Mucus FEW /lpf (OCC) Albumin 3.1 GM/DL (3.4-5.0) Eosinophils (%) (Auto) 6.7 % (0.0-4.0) Blood Urea Nitrogen 19 MG/DL (7-18) PE at Discharge Gen.: No acute distress Head: Normocephalic. Atraumatic. EENT: Pupils equal round and reactive to light. Nose without drainage. Airway intact. Throat without injection. Cardiovascular: normal rate with 1/6 TWAN, no audible gallops or rubs. Respiratory: Rhonchi and slight wheezes throughout. Abdomen: Soft, nontender, nondistended. No peritoneal signs. Musculoskeletal: No gross deformities. No edema. Skin: No obvious rashes or erythema. Neuro: Sensory and motor grossly intact. Cranial nerves II through XII grossly intact. A and O 2. Hospital Course 89-year-old male patient, resident of [facility], presented with altered mental status and hypoxemia on 04/24, and was treated appropriately with antibiotics and breathing treatments for clinical pneumonia. He improved clinically and was discharged to his [facility] with supplemental oxygen in stable condition. Pt Condition on Discharge: Stable Discharge Disposition: ACLF/SENIOR CARE Discharge Instructions DIET: Follow Instructions for: As Tolerated, No Restrictions Activities you can perform: Regular-No Restrictions Follow up Referrals: Appointment for Follow Up - 1 Week with Los Velasquez MD New Medications: Levofloxacin (Levaquin) 750 Mg Tab 750 MG PO DAILY Infection #[address] (Aspirin EC) 81 Mg Tabdr 162 MG PO DAILY #30 TAB Continued Medications: Acetaminophen (Tylenol) 325 Mg Tab 650 MG PO BID Ref 0 TAB Acetaminophen (Tylenol) 325 Mg Tab 650 MG PO Q6H not to exceed 3000mg Tylenol in a 24 hr period PRN PAIN SCALE 1 TO 10 Ref 0 TAB Amlodipine (Amlodipine) 5 Mg Tab 5 MG PO BID Blood Pressure Management #30 Ref 0 TAB Benzonatate (Tessalon Perles) 100 Mg Cap 100 MG PO TID PRN COUGH Ref 0 CAP Bisacodyl Supp (Dulcolax Supp) 10 Mg Supp 10 MG OK DAILY PRN CONSTIPATION #12 Ref 0 SUPP Cholecalciferol (Vitamin D) 1,000 Unit Tab 1000 UNITS PO DAILY Nutritional Supplement #1 Ref 0 BOTTLE Cyanocobalamin Inj (Cyanocobalamin Inj) 1,000 Mcg/Ml Inj 1000 MCG SQ MONTHLY #1 Ref [address] (Duloxetine DR) 30 Mg Capdr 30 MG PO DAILY #30 Ref 0 CAP Guaifenesin ER 12 HR (Mucinex ER 12 HR) 600 Mg Rishi 600 MG PO BID PRN COUGH Ref 0 TAB Ketotifen Opth Drops ([place] Opth Drops) 0.025% Drops 1 DROP EACH EYE BID #10 ML Lisinopril (Lisinopril) 20 Mg Tab 20 MG PO DAILY #30 Ref 0 TAB Metoprolol Tartrate (Metoprolol Tartrate) 25 Mg Tab 12.5 MG PO BID #60 Ref 0 TAB Polyethylene Glycol 3350 Powder (Miralax Powder) 17 Gm Powd 17 GM PO MOWEFR Mix 1 capful (17gm) with 4-8 oz of water on Thursday,Thursday and Thursday-Hold for loose BM Constipation #1 Ref 0 BOTTLE Polyvinyl Alcohol-Povidone Opth Drops (Artificial Tears Opth Drops) 0.5-0.6% Soln 1 DROP EACH EYE BID PRN DRY EYE #15 Ref 0 ML Pravastatin (Pravastatin) 80 Mg Tab 80 MG PO HS Cholesterol Management #30 Ref 0 TAB ([Robitussin Dm]) 5-10 ML PO Q6HR ROBITUSSIN COUGH-CHEST CONGESTION 10MG-200MG/5ML PRN COUGH Discontinued Medications: Aspirin (Aspirin) 325 Mg Tab 325 MG PO DAILY #30 Ref 0 TAB Alexandra Monreal MD 05/05/16 1456: Discharge Summary CBC/BMP: 04/26/16 0700 04/26/16 0700 Discharge Instructions Follow up Referrals: Appointment for Follow Up - 1 Week with [facility] Velasquez MD New Medications: Levofloxacin (Levaquin) 750 Mg Tab 750 MG PO DAILY Infection #3 Ref [address] (Aspirin EC) 81 Mg Tabdr 162 MG PO DAILY #30 TAB Continued Medications: Acetaminophen (Tylenol) 325 Mg Tab 650 MG PO BID Ref 0 TAB Acetaminophen (Tylenol) 325 Mg Tab 650 MG PO Q6H not to exceed 3000mg Tylenol in a 24 hr period PRN PAIN SCALE 1 TO 10 Ref 0 TAB Amlodipine (Amlodipine) 5 Mg Tab 5 MG PO BID Blood Pressure Management #30 Ref 0 TAB Benzonatate (Tessalon Perles) 100 Mg Cap 100 MG PO TID PRN COUGH Ref 0 CAP Bisacodyl Supp (Dulcolax Supp) 10 Mg Supp 10 MG OK DAILY PRN CONSTIPATION #12 Ref 0 SUPP Cholecalciferol (Vitamin D) 1,000 Unit Tab 1000 UNITS PO DAILY Nutritional Supplement #1 Ref 0 BOTTLE Cyanocobalamin Inj (Cyanocobalamin Inj) 1,000 Mcg/Ml Inj 1000 MCG SQ MONTHLY #1 Ref [address] (Duloxetine DR) 30 Mg Capdr 30 MG PO DAILY #30 Ref 0 CAP Guaifenesin ER 12 HR (Mucinex ER 12 HR) 600 Mg Rishi 600 MG PO BID PRN COUGH Ref 0 TAB Ketotifen Opth Drops (Alaway Opth Drops) 0.025% Drops 1 DROP EACH EYE BID #10 ML Lisinopril (Lisinopril) 20 Mg Tab 20 MG PO DAILY #30 Ref 0 TAB Metoprolol Tartrate (Metoprolol Tartrate) 25 Mg Tab 12.5 MG PO BID #60 Ref 0 TAB Polyethylene Glycol 3350 Powder (Miralax Powder) 17 Gm Powd 17 GM PO MOWEFR Mix 1 capful (17gm) with 4-8 oz of water on Thursday,Thursday and Thursday-Hold for loose BM Constipation #1 Ref 0 BOTTLE Polyvinyl Alcohol-Povidone Opth Drops (Artificial Tears Opth Drops) 0.5-0.6% Soln 1 DROP EACH EYE BID PRN DRY EYE #15 Ref 0 ML Pravastatin (Pravastatin) 80 Mg Tab 80 MG PO HS Cholesterol Management #30 Ref 0 TAB ([Robitussin Dm]) 5-10 ML PO Q6HR ROBITUSSIN COUGH-CHEST CONGESTION 10MG-200MG/5ML PRN COUGH Discontinued Medications: Aspirin (Aspirin) 325 Mg Tab 325 MG PO DAILY #30 Ref 0 TAB Janee Wright MD R1 Apr 26, 2016 16:45 Alexandra Monreal MD May 05, 2016 14:56
[2016-04-27] VITALS: BP 115/57; PULSE 57; RESP 18; TEMP 96.3; O2SAT 95
[2016-04-27 04:00] VITALS: BP 115/67; PULSE 61; RESP 18; TEMP 97.2; O2SAT 90
[2016-04-27] MEDS: RESP: ALBUTEROL 2.5 MG/IPRATROPIUM 0.5 MG NEB (SCH) NEB ×4 (04:00→12:07)
[2016-04-27 07:28] VITALS: O2SAT 93
[2016-04-27 08:00] VITALS: BP 138/66; PULSE 73; RESP 18; TEMP 98.6; O2SAT 94
[2016-04-27] MEDS: DULoxetine HCl DR 30 MG CAP PO SCH (08:14)
[2016-04-27] MEDS: ASPIRIN EC 81 MG TABEC PO SCH (08:14)
[2016-04-27] MEDS: METOPROLOL TARTRATE 25 MG TAB PO SCH (08:14)
[2016-04-27] MEDS: LISINOPRIL 20 MG TAB PO SCH (08:14)
[2016-04-27] MEDS: amLODIPine BESYLATE 5 MG TAB PO SCH (08:14)
[2016-04-27] MEDS: CHOLECALCIFEROL (VIT D3) 1000 UNIT TAB PO SCH (08:14)
--- NOTE | 2016-04-27 08:19 | HHI.FPPN ---
Subjective Remarks Nursing and the respiratory reports that the patient is refusing respiratory treatments. He is resting comfortably off of nasal cannula. He states he is feeling "fine." He had a normal bowel movement yesterday. Denies fevers, chills, chest pain, shortness of breath. Without oxygen, he walked with physical therapy 250 feet and was satting 98% on room air. (Robert Jimenes MD R2) Objective Vitals Vital Signs Date Time Temp Pulse Resp B/P Pulse Ox O2 Delivery O2 Flow Rate FiO2 04/27/16 08:00 98.6 73 18 138/66 94 04/27/16 07:28 93 21 04/27/16 04:00 97.2 61 18 115/67 90 04/27/16 00:00 96.3 57 18 115/57 95 04/26/16 22:25 60 04/26/16 22:10 96 Room Air 04/26/16 20:00 96.8 60 18 118/59 95 04/26/16 19:35 92 21 04/26/16 16:00 96.6 94 19 140/81 95 04/26/16 12:25 2.00 04/26/16 12:00 97.1 74 19 141/79 98 04/26/16 08:26 Nasal Cannula 2.00 I/O 04/26/16 04/26/16 04/26/16 04/27/16 04/27/16 04/27/16 07:00 15:00 23:00 07:00 15:00 23:00 # Voids 2 3 3 # Bowel Movements 1 (Robert Jimenes MD R2) Result Diagram: 04/26/16 0704/26/16 0700 Objective Remarks Gen.: No acute distress Head: Normocephalic. Atraumatic. EENT: Pupils equal round and reactive to light. Nose without drainage. Airway intact. Throat without injection. Cardiovascular: normal rate with 1/6 TWAN, no audible gallops or rubs. Respiratory: Rhonchi and increased wheezes throughout. Abdomen: Soft, nontender, nondistended. No peritoneal signs. Musculoskeletal: No gross deformities. No edema. Skin: No obvious rashes or erythema. Neuro: Sensory and motor grossly intact. Cranial nerves II through XII grossly intact. A and O 2. (Robert Jimenes MD R2) A/P Assessment and Plan 89-year-old male patient who resides from [facility] presented with altered mental status and hypoxemia on 04/24. He is currently improving with oxygen and antibiotics. Currently undergoing treatment for clinical pneumonia. Discharge Planning Likely today to [facility]. PT recommends PT with home health. Patient has failed his oxygen walk test. He will require oxygen at discharge. (Robert Jimenes MD R2) Attending Attestation Patient seen and examined. Case reviewed and discussed Agree with plan of care as discussed with me and documented in the resident note. (Alexandra Monreal MD) Problem List: (1) Altered mental status, unspecified Status: Resolved Plan: This is likely the patient's baseline. History of dementia. -Noncontrast head CT is stable with no acute changes. Chronic changes indicative of chronic microvascular ischemia. -Patient with clinical pneumonia as probable source. See below (2) PNA (pneumonia) Status: Acute Plan: Patient with history of fevers and productive cough on admission. Meets criteria for clinical pneumonia. Legionella and pneumococcal antigens negative. No leukocytosis. Chest x-ray clear. Patient has walked 250 feet with physical therapy. Afterwards, his oxygen was 98% on room air. Levaquin 750 mg by mouth every 24 hours (day #4 of 7 days of antibiotic treatment) Duo nebs Tessalon Perles Mucinex 600 mg by mouth twice a day when necessary nasal congestion (3) Hypoxia Status: Resolved Plan: The patient walked 250 feet on room air with physical therapy. After walking 250 feet the patient's oxygen saturation was 98%. (4) Physical deconditioning Status: Acute Plan: Physical therapy consulted. PT recommends PT at home health. No equipment is needed as the patient has equipment. Nursing order to get patient out of the bed at least 3 times a day (5) Chronic medical problems Status: Acute Plan: CAD - continue aspirin 162 mg daily due to history of stents, metoprolol 12.5 mg by mouth twice a day HTN - continue amlodipine 5 mg by mouth twice a day, lisinopril 20 mg by mouth daily, hydralazine PO when necessary HLD - continue pravastatin 80 mg by mouth at bedtime Depression - continue Cymbalta 30 mg by mouth daily Constipation - MiraLAX by mouth (hold for diarrhea) (6) FEN/DVT PPX/GI PPX Status: Acute Plan: Fluids: Oral fluids only Electrolytes: Will monitor and replace as needed Nutrition: Heart healthy diet DVT Prophylaxis: Lovenox 40mg subcutaneous GI Prophylaxis: Protonix 40mg PO daily (Robert Jimenes MD R2) Problem Qualifiers (1) PNA (pneumonia): Qualified Code: J18.9 - Pneumonia due to infectious organism, unspecified laterality, unspecified part of lung Robert Jimenes MD R2 Apr 27, 2016 08:19 Alexandra Monreal MD Apr 28, 2016 09:09
[2016-04-27] MEDS ORDERED: LEVA750T PO (08:22)
[2016-04-27] MEDS ORDERED: LEVOFLOXACIN 750 MG TAB PO ONE (10:00)
[2016-04-27] MEDS ORDERED: PRED20 PO (10:27)
[2016-04-27] MEDS ORDERED: predniSONE 20 MG TAB PO SCH (11:00)
[2016-04-27 12:00] VITALS: BP 128/71; PULSE 78; RESP 18; TEMP 97.8; O2SAT 96
[2016-07-22] MEDS ORDERED: PARO20TA2 PO (10:04)
== END 2016-04-27 13:53 | DRG 195 ==
LOC: NEPE 11:24 → NEDA 14:20 → N05A 21:05
PROVIDERS: ADMIT Family Medicine; ATTEND Family Medicine
DX: J18.9 Pneumonia, unspecified organism (principal); F03.90 Unspecified dementia, unspecified severity, without behavioral disturbance, psychotic disturbance, mood disturbance, and anxiety; G62.9 Polyneuropathy, unspecified; I48.91 Unspecified atrial fibrillation; E04.9 Nontoxic goiter, unspecified; I10 Essential (primary) hypertension; E78.00 Pure hypercholesterolemia, unspecified; F32.9 Major depressive disorder, single episode, unspecified; E78.5 Hyperlipidemia, unspecified; G89.4 Chronic pain syndrome; H10.30 Unspecified acute conjunctivitis, unspecified eye; R09.02 Hypoxemia; I35.0 Nonrheumatic aortic (valve) stenosis; I25.10 Atherosclerotic heart disease of native coronary artery without angina pectoris; K64.9 Unspecified hemorrhoids; R41.82 Altered mental status, unspecified; Z95.5 Presence of coronary angioplasty implant and graft; Z85.828 Personal history of other malignant neoplasm of skin; Z86.73 Personal history of transient ischemic attack (TIA), and cerebral infarction without residual deficits; Z86.711 Personal history of pulmonary embolism; K21.9 Gastro-esophageal reflux disease without esophagitis; K44.9 Diaphragmatic hernia without obstruction or gangrene; M19.90 Unspecified osteoarthritis, unspecified site; R73.03 Prediabetes; Z95.0 Presence of cardiac pacemaker; Z79.82 Long term (current) use of aspirin; Z86.718 Personal history of other venous thrombosis and embolism; Z87.891 Personal history of nicotine dependence; Z66 Do not resuscitate; K59.00 Constipation, unspecified
CPT/HCPCS: 70450; 71010; 71020; 80048; 80053; 81001; 83735; 84100; 85025; 87040; 87449; 87633; 87804; 93005; 94150; 94620; 94640; 94664; 94667; 94668; J1650; J1956; P9612

== ENCOUNTER 2016-09-19 08:19 | Inpatient (IN) | payer MEDICARE, BC ==
[~2016-09-19] VITALS: Ht 180.3 cm; Wt 104.1 kg
[2016-09-19] VITALS (9 sets, daily range): BP systolic 107–124; BP diastolic 57–64; PULSE 60–70; RESP 4–40; TEMP 97.8–98.4; O2SAT 92–95
[~2016-09-19 08:19] MED LIST changes: +ALAW0.02 EACH EYE; -ASPI325T PO; +ASPI81TA11 PO; +DULC10SU3 PR; -DULO1CAP2 PO; +MENT4GEL2 TOPICAL; +PARO20TA2 PO; -POLYSOL14 EACH EYE
[2016-09-19] MEDS ORDERED: SODIUM CHLORIDE 0.9% FLUSH 10 ML FLUSH IVF PRN (08:45)
[2016-09-19] MEDS ORDERED: MIRA3350 PO (08:56)
[2016-09-19] MEDS ORDERED: APIX5TAB PO (08:56)
--- NOTE | 2016-09-19 08:56 | PD ---
HPI Chief Complaint: Respiratory Distress Time Seen by Provider: 08:42 Travel History International Travel<30 days: No Contact w/Intl Traveler<30days: No Traveled to known affect area: No History of Present Illness HPI pt sent from [place] due to sob worseining over last 2 days, ems found patient to have pulse ox in mid 80's....no cough, no fever, no cp, no richey/abd pain either. PFSH Past Medical History AAA: Yes (THORACIC AORTIC ANEURYSM) Arthritis: Yes Atrial Fibrillation: Yes Autoimmune Disease: No Anxiety: Yes Depression: Yes Heart Rhythm Problems: Yes (A-Fib, Coronary Stent, Rheumatic Aortic Valvular Dx ) Cancer: Yes (basal cell) Cardiac Catheterization: Yes (CORONARY STENT) Cardiovascular Problems: Yes (thoracic aneurysm) High Cholesterol: Yes Chemotherapy: No Chest Pain: Yes Congestive Heart Failure: No Cerebrovascular Accident: Yes (2014) Coronary Artery Disease: Yes (RHEUMATIC AORTIC VALVE DISEASE ) Dementia: Yes (MILD) Diabetes: Yes (Pre Diabetic, Diet controlled) Patient Takes Glucophage: No Diminished Hearing: No Endocrine: Yes Gastrointestinal Disorders: Yes (HEMORRHOIDS) GERD: Yes Genitourinary: No Hiatal Hernia: Yes Hypertension: Yes Immune Disorder: No Implanted Vascular Access Dvce: Yes Musculoskeletal: Yes (DDD OF CSP, OSTEOARTHRITIS) Neurologic: Yes (dementia) Psychiatric: No Reproductive: No Respiratory: Yes (pneumonia) Integumentary: Yes (BASAL CELL CA) Pancreatitis: Yes Pneumonia: Yes Thyroid Disease: Yes Triglycerides - High: Yes Tetanus Vaccination: < 5 Years Influenza Vaccination: Yes Past Surgical History Abdominal Surgery: Yes (hiatal hernia repair) Coronary Stent: Yes Genitourinary Surgery: Yes Pacemaker: Yes Social History Alcohol Use: No Tobacco Use: No Substance Use: No Allergies-Medications (Allergen,Severity, Reaction): Coded Allergies: No Known Allergies (Verified , 09/19/16) Reported Meds & Prescriptions Reported Meds & Active Scripts Active Biofreeze Topical (Menthol Topical) 4 % Gel 1 Applic TOPICAL BID PRN Paroxetine (Paroxetine HCl) 20 Mg Tab 20 Mg PO DIRECTED 1/2 tablet daily for 1 week (10mg) then increase to 1 tablet daily (20mg) Aspirin EC (Aspirin) 81 Mg Tabdr 162 Mg PO DAILY Reported Eliquis (Apixaban) 5 Mg Tab 5 Mg PO DAILY Miralax Powder (Polyethylene Glycol 3350 Powder) 17 Gm Powd 17 Gm PO DAILY Mix and dissolve one measuring cap-ful (17 grams) in water or juice. Dulcolax Supp (Bisacodyl) 10 Mg Supp 10 Mg IN DAILY PRN [place] Opth Drops (Ketotifen Opth Drops) 0.025% Drops 1 Drop EACH EYE BID Cyanocobalamin Inj (Cyanocobalamin) 1,000 Mcg/Ml Inj 1,000 Mcg SQ MONTHLY Vitamin D3 (Cholecalciferol) 1,000 Unit Tab 1,000 Units PO DAILY Tylenol (Acetaminophen) 325 Mg Tab 650 Mg PO BID Amlodipine (Amlodipine Besylate) 5 Mg Tab 5 Mg PO BID Metoprolol Tartrate 25 Mg Tab 12.5 Mg PO BID Pravastatin 80 Mg Tab 80 Mg PO HS Lisinopril 20 Mg Tab 20 Mg PO DAILY Physical Exam Narrative GENERAL: SKIN: Warm and dry. HEAD: Atraumatic. Normocephalic. EYES: Pupils equal and round. No scleral icterus. No injection or drainage. ENT: No nasal bleeding or discharge. Mucous membranes pink and moist. NECK: Trachea midline. No JVD. CARDIOVASCULAR: Regular rate and rhythm. RESPIRATORY: No accessory muscle use. tachypneic, decreased tv, scattered wheezing bilaterally....although pleasant patient is found to be tachypneic, 3 word dyspnea and pulse ox decreases to 88-90 on room air GASTROINTESTINAL: Abdomen soft, non-tender, nondistended. Hepatic and splenic margins not palpable. MUSCULOSKELETAL: Extremities without clubbing, cyanosis, or edema. No obvious deformities. NEUROLOGICAL: Awake and alert. No obvious cranial nerve deficits. Motor grossly within normal limits. Five out of 5 muscle strength in the arms and legs. Normal speech. PSYCHIATRIC: Appropriate mood and affect Data Data Last Documented VS Vital Signs Date Time Temp Pulse Resp B/P Pulse Ox O2 Delivery O2 Flow Rate FiO2 09/19/16 11:13 61 32 108/57 92 Nasal Cannula 4 09/19/16 08:29 98.3 Orders Complete Blood Count With Diff (09/19/16 08:42) Comprehensive Metabolic Panel (09/19/16 08:42) B-Type Natriuretic Peptide (09/19/16 08:42) Act Partial Throm Time (Ptt) (09/19/16 08:42) Prothrombin Time / Inr (Pt) (09/19/16 08:42) Ckmb (Isoenzyme) Profile (09/19/16 08:42) Troponin I (09/19/16 08:42) Influenzae A/B Antigen (09/19/16 08:42) Blood Culture (09/19/16 08:42) Iv Access Insert/Monitor (09/19/16 08:42) Electrocardiogram (09/19/16 08:42) Ecg Monitoring (09/19/16 08:42) Oximetry (09/19/16 08:42) Oxygen Administration (09/19/16 08:42) Chest, Single Ap (09/19/16 08:42) Sodium Chloride 0.9% Flush (Ns Flush) (09/19/16 08:45) Methylprednisolone So Succ Inj (Solumedr (09/19/16 09:00) Albuterol Neb (Albuterol Neb) (09/19/16 09:00) Azithromycin Inj (Zithromax Inj) (09/19/16 09:00) CKMB (09/19/16 08:42) CKMB% (09/19/16 08:42) Furosemide Inj (Lasix Inj) (09/19/16 10:30) Admit Order (Ed Use Only) (09/19/16 11:33) Labs Laboratory Tests Test 09/19/16 08:42 White Blood Count 13.6 TH/MM3 Red Blood Count 5.53 MIL/MM3 Hemoglobin 15.8 GM/DL Hematocrit 49.2 % Mean Corpuscular Volume 89.0 FL Mean Corpuscular Hemoglobin 28.5 PG Mean Corpuscular Hemoglobin 32.0 % Concent Red Cell Distribution Width 14.8 % Platelet Count 173 TH/MM3 Mean Platelet Volume 9.0 FL Neutrophils (%) (Auto) 83.7 % Lymphocytes (%) (Auto) 8.6 % Monocytes (%) (Auto) 6.7 % Eosinophils (%) (Auto) 0.7 % Basophils (%) (Auto) 0.3 % Neutrophils # (Auto) 11.4 TH/MM3 Lymphocytes # (Auto) 1.2 TH/MM3 Monocytes # (Auto) 0.9 TH/MM3 Eosinophils # (Auto) 0.1 TH/MM3 Basophils # (Auto) 0.0 TH/MM3 CBC Comment DIFF FINAL Differential Comment Prothrombin Time 11.6 SEC Prothromb Time International 1.0 RATIO Ratio Activated Partial 29.4 SEC Thromboplast Time Sodium Level 142 MEQ/L Potassium Level 4.1 MEQ/L Chloride Level 106 MEQ/L Carbon Dioxide Level 23.6 MEQ/L Anion Gap 12 MEQ/L Blood Urea Nitrogen 20 MG/DL Creatinine 1.12 MG/DL Estimat Glomerular Filtration 62 ML/MIN Rate Random Glucose 125 MG/DL Calcium Level 9.1 MG/DL Total Bilirubin 0.9 MG/DL Aspartate Amino Transf 13 U/L (AST/SGOT) Alanine Aminotransferase 12 U/L (ALT/SGPT) Alkaline Phosphatase 81 U/L Total Creatine Kinase 104 U/L Creatine Kinase MB 3.0 NG/ML Troponin I 0.02 NG/ML B-Type Natriuretic Peptide 578 PG/ML Total Protein 7.6 GM/DL Albumin 3.7 GM/DL MDM Medical Decision Making Medical Screen Exam Complete: Yes Emergency Medical Condition: Yes Medical Record Reviewed: Yes Interpretation(s) AFIB/AFLUTTER RHYTHM, RBBB, RATE IN 60'S NO CONCORTANCE AND NO STEMI PATTERN NOTED Differential Diagnosis ASTHMA EXAC V PNA V PULM EDEMA V ATYPICAL STEMI V Narrative Course patient is on eliquis due to afib hx, pt is hypoxemic when on room air, yet per nh and family no h/o oxygen dependance at home. Diagnosis Primary Impression: HYPOXEMIA Additional Impression: acute bronchospasm Admitting Information Admitting Physician Requests: Observation Adithya Hutchinson MD Sep 19, 2016 08:56 Adithya Hutchinson MD Sep 19, 2016 08:56
[2016-09-19] MEDS ORDERED: AZITHROMYCIN INJ 500 MG in SODIUM CHLOR 0.9% 250 ML INJ 250 ML IV ONE (09:00)
[2016-09-19] MEDS ORDERED: methylPREDNISolone SOD SUCC 125 MG/2 ML VIAL IVP ONE (09:00)
--- NOTE | 2016-09-19 09:19 | RADRPT ---
EXAM DATE/TIME: 09/19/2016 08:56 [facility] COMPARISON: CHEST SINGLE AP, April 24, 2016, 11:56. INDICATIONS : Patient is short of breath since this morning. MEDICAL HISTORY : None. SURGICAL HISTORY : Pacemaker. Stent. ENCOUNTER: Initial ACUITY: 1 day PAIN SCORE: 0/10 LOCATION: Bilateral chest FINDINGS: Pacer in good position. The lungs are clear. The heart is minimally enlarged. The pulmonary vascularity is normal. There is n o evidence for infiltrate or failure. Mild elevation left hemidiaphragm is noted. The portion of the bony skeleton visualized is unremarkable. CONCLUSION: Compensated cardiomegaly without overt congestive failure. Giorgi Jaramillo MD FACR on September 19, 2016 at 9:17 Board Certified Radiologist. This report was verified electronically.
[2016-09-19 09:33] LABS: AUTOMATED NEUTROPHIL # 11.4 TH/MM3 (1.8-7.7); BASOPHIL % 0.3 % (0.0-2.0); EOSINOPHIL # 0.1 TH/MM3 (0-0.4); EOSINOPHIL % 0.7 % (0.0-4.0); HEMATOCRIT 49.2 % (39.0-51.0); HEMO FLAGS DIFF FINAL; LYMPH % 8.6 % (9.0-44.0); LYMPHOCYTE # 1.2 TH/MM3 (1.0-4.8); MEAN CORPUSCULAR HEMOGLOBIN 28.5 PG (27.0-34.0); MONO % 6.7 % (0.0-8.0); NEUT % 83.7 % (16.0-70.0); PLATELET COUNT 173 TH/MM3 (150-450); RED BLOOD COUNT 5.53 MIL/MM3 (4.50-5.90); RED CELL DISTRIBUTION WIDTH 14.8 % (11.6-17.2); WHITE BLOOD COUNT 13.6 TH/MM3 (4.0-11.0)
[2016-09-19 09:39] LABS: APTT (PATIENT) 29.4 SEC (24.3-30.1); PROTHROMBIN TIME - PATIENT 11.6 SEC (9.8-11.6)
[2016-09-19] MEDS: RESP: ALBUTEROL 2.5 MG/3 ML NEB (SCH) INH (09:46)
[2016-09-19 10:14] LABS: BLOOD UREA NITROGEN 20 MG/DL (7-18); GLOMERULAR FILTRATION RATE 62 ML/MIN (>89)
[2016-09-19 10:15] LABS: ALKALINE PHOSPHATASE 81 U/L (45-117); ALT (GPT) 12 U/L (12-78); ANION GAP 12 MEQ/L (5-15); AST (GOT) 13 U/L (15-37); BICARBONATE 23.6 MEQ/L (21.0-32.0); CHLORIDE 106 MEQ/L (98-107); CREATINE KINASE 104 U/L (39-308); POTASSIUM 4.1 MEQ/L (3.5-5.1); SODIUM (NA) 142 MEQ/L (136-145); TOTAL BILIRUBIN ADULT 0.9 MG/DL (0.2-1.0)
[2016-09-19] MEDS ORDERED: FUROSEMIDE 20 MG/2 ML VIAL IV PUSH ONE (10:30)
--- NOTE | 2016-09-19 12:09 | HHI.HP ---
[facility] Service [facility] Primary Care Physician Kyler Ng MD Admission Diagnosis HYPOXEMIA NOS, AFIB WITH CVR Diagnoses: (1) Hypoxia Diagnosis: Principal Chief Complaint: shorthness of breath Travel History International Travel<30 Days: No Contact w/Intl Traveler <30 Da: No Traveled to Known Affected Are: No History of Present Illness patient is a 89 y/o male with multiple comorbidities including hypertension, CAD , hyperlipidemia, aortic stenosis, stroke, CAD s/p multiple drug-eluting stents A. fib with bifascicular block s/p VVI Pacemaker placement, and dementia was brought to ER with sob. patient is not a good historian and most of the information was obtained from the ER and medical record. apparently he was found to have a pulse-ox of 80's. he says that ' all I know is they brought me to the hospital'. he denies any chest pain, fever or cough. he says that ' his breathing is a little easier now'. Review of Systems Constitutional: DENIES: Fever, Weight loss, Chills, Night Sweats Eyes: DENIES: Blurred vision, Diplopia, Vision loss, Double Vision Ears, nose, mouth, throat: DENIES: Tinnitus, Vertigo, Throat pain, Epistaxis Respiratory: COMPLAINS OF: Shortness of breath, DENIES: Apneas, Cough, Snoring , Wheezing, Hemoptysis, Sputum production Cardiovascular: DENIES: Chest pain, Palpitations, Syncope, Dyspnea on Exertion , PND, Lower Extremity Edema, Orthopnea, Claudication Gastrointestinal: DENIES: Abdominal pain, Black stools, Bloody stools, Constipation, Diarrhea, Nausea, Vomiting, Difficulty Swallowing, Anorexia Genitourinary: DENIES: Urinary frequency, Urgency, Hematuria, Dysuria Musculoskeletal: DENIES: Joint pain, Muscle aches, Stiffness, Joint Swelling Integumentary: DENIES: Rash Neurologic: DENIES: Abnormal gait, Headache, Localized weakness, Paresthesias, Seizures, Speech Problems, Tremor, Poor Balance Psychiatric: DENIES: Anxiety, Confusion, Mood changes, Depression, Hallucinations, Agitation, Suicidal Ideation, Homicidal Ideation, Delusions Past Family Social History Past Medical History hypertension, CAD, hyperlipidemia, aortic stenosis, stroke, CAD s/p multiple drug-eluting stents A. fib with bifascicular block s/p VVI Pacemaker placement , and dementia Past Surgical History hiatal hernia repair. cardiac stent placement. Reported Medications Biofreeze Topical (Menthol Topical) 4 % Gel 1 Applic TOPICAL BID PRN Paroxetine (Paroxetine HCl) 20 Mg Tab 20 Mg PO DIRECTED 1/2 tablet daily for 1 week (10mg) then increase to 1 tablet daily (20mg) Aspirin EC (Aspirin) 81 Mg Tabdr 162 Mg PO DAILY Reported Dulcolax Supp (Bisacodyl) 10 Mg Supp 10 Mg UT DAILY PRN [place] Opth Drops (Ketotifen Opth Drops) 0.025% Drops 1 Drop EACH EYE BID Tylenol (Acetaminophen) 325 Mg Tab 650 Mg PO Q6H PRN not to exceed 3000mg Tylenol in a 24 hr period Cyanocobalamin Inj (Cyanocobalamin) 1,000 Mcg/Ml Inj 1,000 Mcg SQ MONTHLY Vitamin D3 (Cholecalciferol) 1,000 Unit Tab 1,000 Units PO DAILY Tylenol (Acetaminophen) 325 Mg Tab 650 Mg PO BID Amlodipine (Amlodipine Besylate) 5 Mg Tab 5 Mg PO BID Metoprolol Tartrate 25 Mg Tab 12.5 Mg PO BID Pravastatin 80 Mg Tab 80 Mg PO HS Lisinopril 20 Mg Tab 20 Mg PO DAILY Allergies: Coded Allergies: No Known Allergies (Verified , 09/19/16) Active Ordered Medications Current Medications Sodium Chloride (NS Flush) 2 ml UNSCH PRN IVF FLUSH AFTER USING IV ACCESS Last administered on 09/19/16 08:45; Start 09/19/16 at 08:45 Methylprednisolone Sodium Succinate (SoluMEDROL INJ) 125 mg ONCE ONCE IVP Last administered on 09/19/16 09:06; Start 09/19/16 at 09:00; Stop 09/19/16 at 09: 01; Status DC Albuterol Sulfate 2.5 mg 2.5 mg Q15M INH Last administered on 09/19/16 09:46; Start 09/19/16 at 09:00; Stop 09/19/16 at 09:31; Status DC Azithromycin/ Sodium Chloride (Zithromax Inj/ NS 250 ml Inj) 250 ml @ 250 mls/ hr ONCE ONCE IV Last administered on 09/19/16 09:06; Start 09/19/16 at 09:00; Stop 09/19/16 at 09:59; Status DC Furosemide (Lasix Inj) 20 mg ONCE ONCE IV PUSH Last administered on 09/19/16 11:11; Start 09/19/16 at 10:30; Stop 09/19/16 at 10:31; Status DC Methylprednisolone Sodium Succinate 40 mg 40 mg Q8HR IV PUSH ; Start 09/19/16 at 14:00; Status UNV Azithromycin/ Sodium Chloride (Zithromax Inj/ NS 250 ml Inj) 250 ml @ 250 mls/ hr Q24H IV ; Start 09/20/16 at 09:00; Status UNV Albuterol/ Ipratropium (Duoneb Neb) 1 ampule Q4HR NEB NEB ; Start 09/19/16 at 12 :00; Status UNV Albuterol Sulfate (Albuterol Neb) 1.25 mg Q2HR NEB PRN NEB SHORTNESS OF BREATH ; Start 09/19/16 at 12:00; Status UNV Amlodipine Besylate (Norvasc) 5 mg BID PO ; Start 09/19/16 at 21:00; Status UNV Apixaban (Eliquis) 5 mg DAILY PO ; Start 09/20/16 at 09:00; Status UNV Aspirin (Ecotrin Ec) 162 mg DAILY PO ; Start 09/20/16 at 09:00; Status UNV Lisinopril (Prinivil) 20 mg DAILY PO ; Start 09/20/16 at 09:00; Status UNV Metoprolol Tartrate (Lopressor) 12.5 mg BID PO ; Start 09/19/16 at 21:00; Status UNV Pravastatin Sodium (Pravachol) 80 mg HS PO ; Start 09/19/16 at 21:00; Status UNV Non-Formulary Medication 1 drop BID EACH EYE ; Start 09/19/16 at 21:00; Status UNV Social History [facility]. Physical Exam Vital Signs Vital Signs Date Time Temp Pulse Resp B/P Pulse Ox O2 Delivery O2 Flow Rate FiO2 09/19/16 11:13 61 32 108/57 92 Nasal Cannula 4 09/19/16 09:46 93 Nasal Cannula 2.00 09/19/16 08:45 95 Nasal Cannula 3 09/19/16 08:45 68 24 95 Nasal Cannula 3 09/19/16 08:32 91 Room Air 09/19/16 08:29 98.3 70 34 121/64 95 Physical Exam GENERAL: elderly male with some sob and wheezing. SKIN: No rashes, ecchymoses or lesions. Cool and dry. HEAD: Atraumatic. Normocephalic. No temporal or scalp tenderness. EYES: Pupils equal round and reactive. Extraocular motions intact. No scleral icterus. No injection or drainage. ENT: Nose without bleeding, purulent drainage or septal hematoma. Throat without erythema, tonsillar hypertrophy or exudate. Uvula midline. Airway patent. NECK: Trachea midline. No JVD or lymphadenopathy. Supple, nontender, no meningeal signs. CARDIOVASCULAR: Regular rate and rhythm without murmurs, gallops, or rubs. RESPIRATORY: diffuse bilateral wheezing. GASTROINTESTINAL: Abdomen soft, non-tender, nondistended. No hepato-splenomegaly , or palpable masses. No guarding. MUSCULOSKELETAL: Extremities with bilateral pedal edema NEUROLOGICAL: Awake and alert. Cranial nerves II through XII intact. Motor and sensory grossly within normal limits. Five out of 5 muscle strength in all muscle groups. Normal speech. Laboratory Laboratory Tests Test 09/19/16 08:42 White Blood Count 13.6 Red Blood Count 5.53 Hemoglobin 15.8 Hematocrit 49.2 Mean Corpuscular Volume 89.0 Mean Corpuscular Hemoglobin 28.5 Mean Corpuscular Hemoglobin 32.0 Concent Red Cell Distribution Width 14.8 Platelet Count 173 Mean Platelet Volume 9.0 Neutrophils (%) (Auto) 83.7 Lymphocytes (%) (Auto) 8.6 Monocytes (%) (Auto) 6.7 Eosinophils (%) (Auto) 0.7 Basophils (%) (Auto) 0.3 Neutrophils # (Auto) 11.4 Lymphocytes # (Auto) 1.2 Monocytes # (Auto) 0.9 Eosinophils # (Auto) 0.1 Basophils # (Auto) 0.0 CBC Comment DIFF FINAL Differential Comment Prothrombin Time 11.6 Prothromb Time International 1.0 Ratio Activated Partial 29.4 Thromboplast Time Sodium Level 142 Potassium Level 4.1 Chloride Level 106 Carbon Dioxide Level 23.6 Anion Gap 12 Blood Urea Nitrogen 20 Creatinine 1.12 Estimat Glomerular Filtration 62 Rate Random Glucose 125 Calcium Level 9.1 Total Bilirubin 0.9 Aspartate Amino Transf 13 (AST/SGOT) Alanine Aminotransferase 12 (ALT/SGPT) Alkaline Phosphatase 81 Total Creatine Kinase 104 Creatine Kinase MB 3.0 Troponin I 0.02 B-Type Natriuretic Peptide 578 Total Protein 7.6 Albumin 3.7 Date/Time Procedure Status Source Growth 09/19/16 08:55 Influenza Types A,B Antigen ([facility]ORGAN) - Final Complete Nasal Washing NEGATIVE FOR FLU A AND B ANTIGEN.... 09/19/16 08:41 Aerobic Blood Culture Received Blood Peripheral Pending 09/19/16 08:41 Anaerobic Blood Culture Received Blood Peripheral Pending Result Diagram: 09/19/1684109/19/16841 Imaging Last Impressions Chest X-Ray 09/19/16841 Signed Impressions: Service Date/Time: Monday, September 19, 2016 08:56 - CONCLUSION: Compensated cardiomegaly without overt congestive failure. Giorgi Jaramillo MD FACR EKG; atrial flutter Assessment and Plan Assessment and Plan A/P - acute respiratory failure-due to acute bronchitis vs CHF keep on oxygen to keep O2 sat > 90%- continue with IV steroids, diuretic and Zithromax- start neb treatment; scheduled and PRN. check echo -CAD- s/p stent placement; continue aspirin,eliquis, statin and BB -hypertension; resume amlodipine,metoprolol and lisinopril -DVT prophylaxis ; on Eliquis -consult PT -DNR status per my discussion with . Discussed Condition With the ER physician , the patient and . Herminio Richards MD Sep 19, 2016 12:09
[2016-09-19] MEDS: RESP: ALBUTEROL 2.5 MG/IPRATROPIUM 0.5 MG NEB (SCH) NEB ×3 (12:49→19:32)
--- NOTE | 2016-09-19 13:56 | EKG ---
Date Performed: 09/19/2016 Time Performed: 08:49:03 PTAGE: 89 years EKG: ATRIAL FIBRILLATION WITH CONTROLLED VENTRICULAR RESPONSE Indeterminate axis RIGHT BUNDLE BR ANCH BLOCK ABNORMAL ECG PREVIOUS TRACING : 04/24/2016 11.50 Compared to prior tracing, pacer spikes are no longer seen. DOCTOR: Jhonny Sanchez Interpretating Date/Time 09/19/2016 13:55:06
[2016-09-19 15:33] LABS: BLOOD GAS CARBOXYHEMOGLOBIN 1.1 % (0-4); BLOOD GAS HCO3 18 mmol/L (22-26); BLOOD GAS METHEMOGLOBIN 0.7 % (0-2); BLOOD GAS O2 HGB SATURATION 93 % (90-100); BLOOD GAS OXYGEN CONTENT 20.4 Vol % (12.0-20.0); BLOOD GAS PCO2 33 mmHg (38-42); BLOOD GAS PO2 76 mmHG (61-120); BLOOD GAS TOTAL HGB 15.5 G/DL (12.0-16.0); CRITICAL VALUE NO; DRAW SITE RT RADIAL; LITER FLOW 2 L/M; NUMBER OF ARTERIAL PUNCTURES 1; OXYGEN DEVICE NASAL CANNULA; STAT YES; TEMP CORR TO 98.6; ULNAR PULSE PRESENT
[2016-09-19] MEDS: methylPREDNISolone SOD SUCC 40 MG/1 ML VIAL IV PUSH SCH ×2 (16:40→21:21)
[2016-09-19 17:58] LABS: BLOOD GAS BASE EXCESS -5.1 mmol/L (-2-2); BLOOD GAS CARBOXYHEMOGLOBIN 1.2 % (0-4); BLOOD GAS HCO3 19 mmol/L (22-26); BLOOD GAS METHEMOGLOBIN 0.7 % (0-2); BLOOD GAS O2 HGB SATURATION 93 % (90-100); BLOOD GAS OXYGEN CONTENT 19.5 Vol % (12.0-20.0); BLOOD GAS PCO2 33 mmHg (38-42); BLOOD GAS PO2 73 mmHG (61-120); BLOOD GAS TOTAL HGB 14.9 G/DL (12.0-16.0); CRITICAL VALUE NO; DRAW SITE RT RADIAL; LITER FLOW 2 L/M; NUMBER OF ARTERIAL PUNCTURES 1; OXYGEN DEVICE NASAL CANNULA; STAT NO; TEMP CORR TO 98.6; ULNAR PULSE PRESENT
--- NOTE | 2016-09-19 18:11 | MB ---
cc: Yan STEWART M.D. DATE OF CONSULTATION 09/19/16 REASON FOR CONSULTATION Respiratory distress, hypoxia. HISTORY OF PRESENT ILLNESS This is an 89-year-old white male who was admitted with complaints of shortness of breath, wheezing and low oxygen saturation. Apparently, does have a past history for hypertension, hyperlipidemia and history for CVA and aortic valve stenosis. The patient and has had coronary artery disease status post stenting and has had a permanent pacemaker placed and previously treated for atrial fibrillation. He was seen in the emergency room where his saturation was noted to be in the 80s. He thus was placed on oxygen at 2 liters and started on IV Solu-Medrol and IV antibiotics and transferred to the telemetry unit. He denies chest pain. Denies hemoptysis. He has had no leg swelling or calf muscle pains. He has some arthritis and states he is feeling better now since he has been admitted. PAST HISTORY Has included hypertension, hyperlipidemia, aortic valve stenosis and atrial fibrillation with a bifascicular block status post VVI pacemaker placement, history of dementia and strokes. Surgery includes hiatal hernia repair and coronary angiography and stenting. ALLERGIES None listed. MEDICATIONS Med list included: 1. Pravastatin 80 milligrams at bedtime. 2. Lisinopril 20 milligrams a day. 3. Metoprolol 12.5 milligrams b.i.d. 4. Amlodipine 5 milligrams b.i.d. 5. Vitamin D3 1000 units daily. FAMILY HISTORY Noncontributory. HABITS The patient never smoked. No significant alcohol use. REVIEW OF SYSTEMS The patient is a poor historian and he is very hard of hearing. No chest pains and no nausea, vomiting or aspiration. No fevers or chills. No night sweats. Denies GI bleed. No urinary symptoms but has some joint pains and mild leg swelling. No anxiety. No depression. PHYSICAL EXAMINATION GENERAL: This moderately obese elderly man who is pale and no acute distress. VITAL SIGNS: Blood pressure 110/60, pulse is 64, respirations 22, temperature 98.4. HEENT: Head normocephalic. Pupils are reactive. Throat is clear. Tongue was moist. Ears no inflammation. NECK: Supple. No bruits or thyroid enlargement. CHEST: Distant breath sounds with occasional wheezes bilaterally and basilar crackles more on the right side. HEART: The heart sounds are irregular, S1-S2 with no murmur, no S3. ABDOMEN: The abdomen is soft, obese with the liver just felt below the costal margin. Bowel sounds are active. EXTREMITIES: Decreased peripheral pulses. There is minimal edema. Reflexes are 1+ with no gross motor deficits. NEURO: Cranial nerves grossly intact. RECTAL: Exam is deferred. SKIN: Skin was dry and scaly. IMPRESSION 1. Acute bronchitis with bronchospasm. 2. Mild CHF. 3. Rule out pulmonary embolism. 4. Hypertension and hyperlipidemia. 5. Dementia and history of CVA. PLAN The patient will be maintained on 2 liters of oxygen to maintain sats above 92, blood gas studies were ordered. A VQ lung scan was ordered to rule out PE and nebulized DuoNeb solution started q.i.d. Continue with Zithromax 500 milligrams IV daily, Solu-Medrol 40 milligrams IV q.8 hours. Follow-up chest x-ray in the a.m. and if he is clinically stable we will try to wean him off the oxygen. Continue with Lasix 20 milligrams daily and a pulmonary function study will be obtained when he is clinically stable. Thank you Dr. Richards for this consultation. Sotero Stewart MD JMEETA/OSIRIS /5:25 PM /5:57 PM
--- NOTE | 2016-09-19 19:30 | RADRPT ---
EXAM DATE/TIME: 09/19/2016 18:44 [facility] COMPARISON: CHEST SINGLE AP, September 19, 2016, 8:56. INDICATIONS : Dyspnea with wheezing and low oxygen saturation. DOSE: 8.7 mCi Tc99m MAA IV 1 mCi Tc99m DTPA aerosol MEDICAL HISTORY : Aneurysm, abdominal. Hypertension. Congestive heart failure. Stroke. GERD. SURGICAL HISTORY : Pacemaker. Coronary artery stent. ENCOUNTER: Initial ACUITY: 1 day PAIN SCALE: 0/10 LOCATION: chest TECHNIQUE: Following five minutes of tidal breathing of DTPA aerosol, planar images of the lungs were performed in eight projections. The patient was then injected with MAA, and eight-view perfusion scan was perf ormed. FINDINGS: On the ventilation scan, there is moderate central deposition of aerosol. There are subsegmental are as of decreased ventilation to the periphery of the upper left lung and mid right lung. The perfusion lung scan demonstrates a homogenous pattern of uptake in both lungs. No segmental or s ubsegmental defects are seen. Chest x-ray is free of areas of consolidation. CONCLUSION: Low probability pulmonary embolism. Dieter Cao MD on September 19, 2016 at 19:27 Board Certified Radiologist. This report was verified electronically.
[2016-09-19] MEDS: amLODIPine BESYLATE 5 MG TAB PO SCH (21:18)
[2016-09-19] MEDS: METOPROLOL TARTRATE 25 MG TAB PO SCH (21:18)
[2016-09-19] MEDS: PRAVASTATIN SOD 80 MG TAB PO SCH (21:19)
[2016-09-19] MEDS: OLOPATADINE HCL 0.1% OPHT SOLN 5 ML BTL EACH EYE SCH (21:21)
[2016-09-20] VITALS (14 sets, daily range): BP systolic 105–165; BP diastolic 51–77; PULSE 60–76; RESP 20–28; TEMP 97.3–97.9; O2SAT 89–97
[2016-09-20] MEDS: RESP: ALBUTEROL 1.25 MG/3 ML NEB (PRN) NEB (00:22)
[2016-09-20] MEDS ORDERED: RESP: ALBUTEROL 2.5 MG/IPRATROPIUM 0.5 MG NEB (SCH) NEB ONE (00:45)
[2016-09-20 02:10] LABS: BLOOD GAS CARBOXYHEMOGLOBIN 1.2 % (0-4); BLOOD GAS HCO3 22 mmol/L (22-26); BLOOD GAS METHEMOGLOBIN 0.9 % (0-2); BLOOD GAS O2 HGB SATURATION 92 % (90-100); BLOOD GAS OXYGEN CONTENT 18.8 Vol % (12.0-20.0); BLOOD GAS PCO2 38 mmHg (38-42); BLOOD GAS PO2 72 mmHg (61-120); BLOOD GAS TOTAL HGB 14.4 G/DL (12.0-16.0); CRITICAL VALUE NO; FIO2 50 %; LITER FLOW 6 L/M; OXYGEN DEVICE Venti Mask; TEMP CORR TO 98.6
[2016-09-20 02:11] LABS: DRAW SITE LT RADIAL; NUMBER OF ARTERIAL PUNCTURES 1; STAT YES; ULNAR PULSE PRESENT
--- NOTE | 2016-09-20 02:28 | HHI.PR ---
Addendum to Inpatient Note Addendum Reason: Additional Documentation Additional Information Discussed with RN about patient o2 saturation, and a 50% venti mask was placed and ABG was drawn. Patient became combative and restraints were applied. Patient 's son (Dr. Ng) was notified by RN and given orders to only place patient on 6L NS and remove restraints and have a sitter instead. ABGs were normal so patient could be weaned from venti to 6L NC. Sitter was ordered and restraints were removed. Patient will continued to be monitored closely and family wishes will be granted. If o2 sat does not stay adequate for comfort of patient, will consider placing palliative care consult for assistance in management and to clarify goals with family. Renetta Crowe Sep 20, 2016 02:28
[2016-09-20] MEDS: methylPREDNISolone SOD SUCC 40 MG/1 ML VIAL IV PUSH SCH ×3 (05:17→21:42)
[2016-09-20] MEDS: RESP: ALBUTEROL 2.5 MG/IPRATROPIUM 0.5 MG NEB (SCH) NEB ×4 (08:24→19:56)
[2016-09-20] MEDS: AZITHROMYCIN INJ 500 MG in SODIUM CHLOR 0.9% 250 ML INJ 250 ML IV SCH (08:55)
[2016-09-20] MEDS: PARoxetine HCL 20 MG TAB PO SCH (08:56)
[2016-09-20] MEDS: OLOPATADINE HCL 0.1% OPHT SOLN 5 ML BTL EACH EYE SCH ×2 (08:56→21:43)
[2016-09-20] MEDS: LISINOPRIL 20 MG TAB PO SCH (08:56)
[2016-09-20] MEDS: amLODIPine BESYLATE 5 MG TAB PO SCH ×2 (08:56→21:42)
[2016-09-20] MEDS: METOPROLOL TARTRATE 25 MG TAB PO SCH ×2 (08:57→21:42)
[2016-09-20] MEDS ORDERED: ASPIRIN EC 81 MG TABEC PO SCH (09:00)
[2016-09-20] MEDS ORDERED: FUROSEMIDE 20 MG TAB PO SCH (09:00)
[2016-09-20] MEDS ORDERED: FUROSEMIDE 20 MG/2 ML VIAL IV PUSH SCH (09:00)
[2016-09-20] MEDS ORDERED: APIXABAN 5 MG TABLET PO SCH (09:00)
--- NOTE | 2016-09-20 09:51 | PD.CONS ---
HPI Consult Requested By Reason for Consult Cardiac evaluation Primary Care Physician Dr. Velasquez History of Present Illness My father is an 89-year-old white gentleman with multiple medical issues who is well known to me. I have been following his cardiac status and no his medical history in depth. In 2004 he had unstable angina and had 5 drug-eluting stents placed to the LAD, diagonal, obtuse marginal and 2 in the proximal and mid RCA. Subsequent stress nuclear was normal. Echocardiogram last done in 2014 showed preserved ventricular function with mild aortic and mitral regurgitation. He also has a history of chronic atrial fibrillation. He was initially on anticoagulation but this was transiently stopped because of falls. He did have symptomatic bradycardia and had a St. Kt pacemaker placed 08/01. He has had no other significant falls or syncope. Approximately 2 months ago he developed mild right lower extremity edema without other symptoms. Because of prior history of DVT and the indication from atrial fibrillation, I did start him on Eliquis which he has been stable on. He has had a history of CVAs noted on MRI and then had a prolonged TIA in 2014. Because of his overall medical status this was treated very conservatively without any testing whatsoever in his deficits resolved. He does live in [facility] and gets around with a walker. He has mild stable dyspnea but no other true cardiac issues. He was noted by the nursing staff to be more short of breath and hypoxemic the day of admission although he denied this. He also was wheezing. He has no chest pain or other complaints. EKG shows atrial fibrillation with ventricular demand pacemaker. Review of Systems Consitutional: COMPLAINS OF: Weight gain, Weight loss, DENIES: Chills HEENT: COMPLAINS OF: Change in hearing Respiratory: COMPLAINS OF: Wheezing, DENIES: Snoring Genitourinary: COMPLAINS OF: Difficulty voiding Neurologic: COMPLAINS OF: Memory problems, Poor Balance, DENIES: Tingling or numbness Musculoskeletal: COMPLAINS OF: Joint pain, Back pain Psychiatric: DENIES: Anxiety, Depression Endocrine: COMPLAINS OF: Weight gain Past Family Social History Allergies: Coded Allergies: No Known Allergies (Verified , 09/19/16) Past Medical History Past medical history: Cardiac as above DO NOT RESUSCITATE Hypertension Hyperlipidemia Chronic neck pain with cervical disc disease for which she has had this at least 15 years. He has failed pain management and injections and uses ice packs or heating pad. 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 Coronary stent Peripheral vascular disease treated conservatively Ringworm Cholelithiasis Multiple skin cancers including squamous cell and basal cell Reported Medications Reported Meds & Active Scripts Active Biofreeze Topical (Menthol Topical) 4 % Gel 1 Applic TOPICAL BID PRN Paroxetine (Paroxetine HCl) 20 Mg Tab 20 Mg PO DIRECTED 1/2 tablet daily for 1 week (10mg) then increase to 1 tablet daily (20mg) Aspirin EC (Aspirin) 81 Mg Tabdr 162 Mg PO DAILY Reported Eliquis (Apixaban) 5 Mg Tab 5 Mg PO DAILY Miralax Powder (Polyethylene Glycol 3350 Powder) 17 Gm Powd 17 Gm PO DAILY Mix and dissolve one measuring cap-ful (17 grams) in water or juice. Dulcolax Supp (Bisacodyl) 10 Mg Supp 10 Mg SC DAILY PRN [place] Opth Drops (Ketotifen Opth Drops) 0.025% Drops 1 Drop EACH EYE BID Cyanocobalamin Inj (Cyanocobalamin) 1,000 Mcg/Ml Inj 1,000 Mcg SQ MONTHLY Vitamin D3 (Cholecalciferol) 1,000 Unit Tab 1,000 Units PO DAILY Tylenol (Acetaminophen) 325 Mg Tab 650 Mg PO BID Amlodipine (Amlodipine Besylate) 5 Mg Tab 5 Mg PO BID Metoprolol Tartrate 25 Mg Tab 12.5 Mg PO BID Pravastatin 80 Mg Tab 80 Mg PO HS Lisinopril 20 Mg Tab 20 Mg PO DAILY Active Ordered Medications Current Medications Medications (Trade) Dose Ordered Sig/Braden Route Start Time Stop Time Status Last Admin (NS Flush) 2 ml UNSCH PRN IVF 09/19/16 08:45 09/19/16 08:45 Methylprednisolone Sodium Succinate 40 mg 40 mg Q8HR IV PUSH 09/19/16 17:00 09/20/16 05:17 (Zithromax Inj/ NS 250 ml Inj) 250 ml @ 250 mls/hr Q24H IV 09/20/16 09:00 09/20/16 08:55 (Norvasc) 5 mg BID PO 09/19/16 21:00 09/20/16 08:56 (Eliquis) 5 mg DAILY PO 09/20/16 09:00 8/5/17 08:56 (Prinivil) 20 mg DAILY PO 09/20/16 09:00 09/20/16 08:56 (Lopressor) 12.5 mg BID PO 09/19/16 21:00 09/20/16 08:57 (Pravachol) 80 mg HS PO 09/19/16 21:00 09/19/16 21:19 (Patanol 0.1% Opth) 1 drop BID EACH EYE 09/19/16 21:00 09/20/16 08:56 (Paxil) 20 mg DAILY PO 09/20/16 09:00 09/20/16 08:56 (Lasix Inj) 20 mg DAILY IV PUSH 09/20/16 09:00 09/20/16 08:56 (Lasix) 20 mg DAILY PO 09/20/16 09:00 09/20/16 08:56 (Ecotrin Ec) 81 mg DAILY PO 09/21/16 09:00 UNV Family History Father with an [place] at a young age Social History He is a . He smoked in the past and does not drink at present Physical Exam Vital Signs Vital Signs Date Time Temp Pulse Resp B/P Pulse Ox O2 Delivery O2 Flow Rate FiO2 09/20/16 08:25 91 Nasal Cannula 6.00 09/20/16 08:00 97.3 60 20 126/66 91 09/20/16 04:00 97.4 60 20 123/69 97 09/20/16 02:00 93 Nasal Cannula 6.00 09/20/16 01:33 92 09/20/16 01:22 64 20 118/57 93 09/20/16 00:52 76 28 108/56 95 09/20/16 00:40 92 50 09/20/16 00:38 89 Venturi Mask 50 09/20/16 00:38 65 28 117/56 89 09/20/16 00:35 88 Venturi Mask 35 09/20/16 00:27 90 Nasal Cannula 4.00 09/20/16 00:25 90 Nasal Cannula 4.00 09/20/16 00:00 97.7 60 22 105/51 93 09/19/16 22:19 98.1 69 20 110/60 95 09/19/16 20:31 98.4 70 18 111/62 92 09/19/16 19:33 Nasal Cannula 2.00 09/19/16 15:55 33 09/19/16 15:21 97.8 60 20 124/64 94 09/19/16 14:16 61 40 107/58 92 Nasal Cannula 4 09/19/16 11:13 61 32 108/57 92 Nasal Cannula 4 09/19/16 09:46 93 Nasal Cannula 2.00 Physical Exam GENERAL: Well-nourished, well-developed patient in no apparent distress. Oriented to person and place. SKIN: Warm and dry. NECK: JVD normal - less than or equal to 5 cm H20. CARDIOVASCULAR: Regular rate and rhythm without murmurs, gallops, or rubs. RESPIRATORY: Normal breath sounds - equal bilaterally. No accessory muscle use. No rales or rubs. Mild diffuse wheezes. PERIPHERY: No cyanosis, or edema. Laboratory Laboratory Tests Test 09/19/16 09/19/16 09/20/16 09/20/16 15:02 17:47 00:48 08:45 Blood Gas Puncture Site RT RADIAL RT RADIAL LT RADIAL Blood Gas Patient Temperature 98.6 98.6 98.6 Blood Gas HCO3 18 19 22 Blood Gas Base Excess -7.0 -5.1 -2.0 Blood Gas Oxygen Saturation 93 93 92 Arterial Blood pH 7.35 7.38 7.39 Arterial Blood Partial 33 33 38 Pressure CO2 Arterial Blood Partial 76 73 72 Pressure O2 Arterial Blood Oxygen Content 20.4 19.5 18.8 Arterial Blood 1.1 1.2 1.2 Carboxyhemoglobin Arterial Blood Methemoglobin 0.7 0.7 0.9 Blood Gas Hemoglobin 15.5 14.9 14.4 Oxygen Delivery Device NASAL CANNULA NASAL CANNULA Venti Mask Blood Gas Liter Flow 2 2 6 Blood Gas Inspired Oxygen 50 D-Dimer Quantitative (PE/DVT) 0.45 Date/Time Procedure Status Source Growth 09/19/16 08:55 Influenza Types A,B Antigen (MORGAN) - Final Complete Nasal Washing NEGATIVE FOR FLU A AND B ANTIGEN.... 09/19/16 08:41 Aerobic Blood Culture Received Blood Peripheral Pending 09/19/16 08:41 Anaerobic Blood Culture Received Blood Peripheral Pending Result Diagram: 09/19/1642 09/19/1642 Imaging Last 48 hours Impressions Chest X-Ray 09/19/1642 Signed Impressions: Service Date/Time: Monday, September 19, 2016 08:56 - CONCLUSION: Compensated cardiomegaly without overt congestive failure. Giorgi Jaramillo MD FACR Lung Scan-VQ Nuclear Medicine 09/19/16 0000 Signed Impressions: Service Date/Time: Monday, September 19, 2016 18:44 - CONCLUSION: Low probability pulmonary embolism. Dieter Cao MD Assessment and Plan Assessment and Plan Problems: Shortness of breath/wheezingthis happened relatively suddenly and I suspect it is either a severe bronchitis or developing a pneumonia possibly on top of mild congestive heart failure. DO NOT RESUSCITATEquality of life is important. Restraining him during the night in order to place a breathing mask which made him feel like he was suffocating is not compassionate nor appropriate. We are trying to improve him medically but also make him comfortable understanding he is a DNR and the fact that he is older and has multiple medical issues. Other problems as above Recommendations: DNRI would minimize interventions on him as he does not tolerate these. There is no indication for telemetry and I will discontinue this. I would also minimize testing and certainly would avoid restraints and masks. Gentle diuresis Continue Eliquis, statins, low-dose aspirin and low-dose beta blockers. I have ordered incentive spirometry Antibiotics per primary service along with pulmonary management. Again, his care as a balance of compassion, quality of life and medical care. We want to minimize his discomfort and interventions and do the best we can medically understanding he is older and his medical condition may or may not improve. Kyler Ng MD Sep 20, 2016 09:51
[2016-09-20 11:18] LABS: BICARBONATE 23.3 MEQ/L (21.0-32.0); POTASSIUM 4.2 MEQ/L (3.5-5.1)
--- NOTE | 2016-09-20 12:05 | HHI.PR ---
Subjective Remarks with some sob - currently on oxygen via N/C. denies chest pain. has mild back pain. remains afebrile. sitter at the bedside. Objective Vitals Vital Signs Date Time Temp Pulse Resp B/P Pulse Ox O2 Delivery O2 Flow Rate FiO2 09/20/16 08:25 91 Nasal Cannula 6.00 09/20/16 08:00 97.3 60 20 126/66 91 09/20/16 08:00 Nasal Cannula 6.00 Humidified 09/20/16 04:00 97.4 60 20 123/69 97 09/20/16 02:00 93 Nasal Cannula 6.00 09/20/16 01:33 92 09/20/16 01:22 64 20 118/57 93 09/20/16 00:52 76 28 108/56 95 09/20/16 00:40 92 50 09/20/16 00:38 89 Venturi Mask 50 09/20/16 00:38 65 28 117/56 89 09/20/16 00:35 88 Venturi Mask 35 09/20/16 00:27 90 Nasal Cannula 4.00 09/20/16 00:25 90 Nasal Cannula 4.00 09/20/16 00:00 97.7 60 22 105/51 93 09/19/16 22:19 98.1 69 20 110/60 95 09/19/16 20:31 98.4 70 18 111/62 92 09/19/16 19:33 Nasal Cannula 2.00 09/19/16 15:55 33 09/19/16 15:21 97.8 60 20 124/64 94 09/19/16 14:16 61 40 107/58 92 Nasal Cannula 4 I/O 09/19/16 09/19/16 09/19/16 09/20/16 09/20/16 09/20/16 07:00 15:00 23:00 07:00 15:00 23:00 Intake Total 120 ml 120 ml Output Total 300 ml 200 ml Balance -180 ml -80 ml Intake Oral 120 ml 120 ml IV Total 0 ml Output Urine Total 300 ml 200 ml # Bowel Movements 1 0 Result Diagram: 09/19/1642 09/20/1645 Imaging Last Impressions Chest X-Ray 09/19/16841 Signed Impressions: Service Date/Time: Monday, September 19, 2016 08:56 - CONCLUSION: Compensated cardiomegaly without overt congestive failure. Giorgi Jaramillo MD FACR Lung Scan-VQ Nuclear Medicine 09/19/16 0000 Signed Impressions: Service Date/Time: Monday, September 19, 2016 18:44 - CONCLUSION: Low probability pulmonary embolism. Dieter Cao MD Objective Remarks GENERAL: with some sob but with no acute distress. CARDIOVASCULAR: Regular rate and regular rhythm without murmurs, gallops, or rubs. RESPIRATORY:wheezing has improved. GASTROINTESTINAL: Abdomen soft, non-tender, nondistended. Normal, active bowel sounds MUSCULOSKELETAL: Extremities without clubbing, cyanosis, or edema. NEURO: awake and alert. Medications and IVs Current Medications Sodium Chloride (NS Flush) 2 ml UNSCH PRN IVF FLUSH AFTER USING IV ACCESS Last administered on 09/19/16 08:45; Start 09/19/16 at 08:45 Methylprednisolone Sodium Succinate (SoluMEDROL INJ) 125 mg ONCE ONCE IVP Last administered on 09/19/16 09:06; Start 09/19/16 at 09:00; Stop 09/19/16 at 09: 01; Status DC Albuterol Sulfate 2.5 mg 2.5 mg Q15M INH Last administered on 09/19/16 09:46; Start 09/19/16 at 09:00; Stop 09/19/16 at 09:31; Status DC Azithromycin/ Sodium Chloride (Zithromax Inj/ NS 250 ml Inj) 250 ml @ 250 mls/ hr ONCE ONCE IV Last administered on 09/19/16 09:06; Start 09/19/16 at 09:00; Stop 09/19/16 at 09:59; Status DC Furosemide (Lasix Inj) 20 mg ONCE ONCE IV PUSH Last administered on 09/19/16 11:11; Start 09/19/16 at 10:30; Stop 09/20/16 at 09:40; Status DC Methylprednisolone Sodium Succinate 40 mg 40 mg Q8HR IV PUSH Last administered on 09/20/16 05:17; Start 09/19/16 at 17:00 Azithromycin/ Sodium Chloride (Zithromax Inj/ NS 250 ml Inj) 250 ml @ 250 mls/ hr Q24H IV Last administered on 09/20/16 08:55; Start 09/20/16 at 09:00 Albuterol/ Ipratropium (Duoneb Neb) 1 ampule Q4HR NEB NEB Last administered on 09/19/16 15:07; Start 09/19/16 at 12:00; Stop 09/19/16 at 17:35; Status DC Albuterol Sulfate (Albuterol Neb) 1.25 mg Q2HR NEB PRN NEB SHORTNESS OF BREATH Last administered on 09/20/16 00:22; Start 09/19/16 at 12:00 Amlodipine Besylate (Norvasc) 5 mg BID PO Last administered on 09/20/16 08:56; Start 09/19/16 at 21:00 Apixaban (Eliquis) 5 mg DAILY PO Last administered on 09/20/16 08:56; Start 09/20/16 at 09:00 Aspirin (Ecotrin Ec) 162 mg DAILY PO Last administered on 09/20/16 08:56; Start 09/20/16 at 09:00; Stop 09/20/16 at 09:40; Status DC Lisinopril (Prinivil) 20 mg DAILY PO Last administered on 09/20/16 08:56; Start 09/20/16 at 09:00 Metoprolol Tartrate (Lopressor) 12.5 mg BID PO Last administered on 09/20/16 08 :57; Start 09/19/16 at 21:00 Pravastatin Sodium (Pravachol) 80 mg HS PO Last administered on 09/19/16 21:19 ; Start 09/19/16 at 21:00 Olopatadine HCl (Patanol 0.1% Opth) 1 drop BID EACH EYE Last administered on 08:56; Start 09/19/16 at 21:00 Paroxetine HCl (Paxil) 20 mg DAILY PO Last administered on 09/20/16 08:56; Start 09/20/16 at 09:00 Furosemide (Lasix Inj) 20 mg DAILY IV PUSH Last administered on 09/20/16 08:56 ; Start 09/20/16 at 09:00 Furosemide (Lasix) 20 mg DAILY PO Last administered on 09/20/16 08:56; Start at 09:00 Albuterol/ Ipratropium (Duoneb Neb) 1 ampule QID NEB NEB Last administered on 8/5/17at 08:24; Start 09/19/16 at 20:00 Albuterol/ Ipratropium (Duoneb Neb) 1 ampule ONCE ONCE NEB ; Start 09/20/16 at 00:45; Stop 09/20/16 at 00:46; Status DC Aspirin (Ecotrin Ec) 81 mg DAILY PO ; Start 09/21/16 at 09:00 A/P Assessment and Plan A/P - acute respiratory failure-due to acute bronchitis vs CHF V/Q scan with low probability for PE. keep on oxygen to keep O2 sat > 90%- continue with IV steroids, diuretic and Zithromax- start neb treatment; scheduled and PRN. echo pending. cardiology and pulmonary consults appreciated. -CAD- s/p stent placement; continue aspirin,eliquis, statin and BB -hypertension; resumed amlodipine,metoprolol and lisinopril -DVT prophylaxis ; on Eliquis -consulted PT -DNR status per my discussion with ( son). Herminio Richards MD Sep 20, 2016 12:05
--- NOTE | 2016-09-20 12:51 | HHI.PR ---
Subjective Remarks Alert and not in distress. On 2 L o2 . V/Q scan Neg. Good output. No chest pain. Objective Vital Signs Date Time Temp Pulse Resp B/P Pulse Ox O2 Delivery O2 Flow Rate FiO2 09/20/16 08:25 91 Nasal Cannula 6.00 09/20/16 08:00 97.3 60 20 126/66 91 09/20/16 08:00 Nasal Cannula 6.00 Humidified 09/20/16 04:00 97.4 60 20 123/69 97 09/20/16 02:00 93 Nasal Cannula 6.00 09/20/16 01:33 92 09/20/16 01:22 64 20 118/57 93 09/20/16 00:52 76 28 108/56 95 09/20/16 00:40 92 50 09/20/16 00:38 89 Venturi Mask 50 09/20/16 00:38 65 28 117/56 89 09/20/16 00:35 88 Venturi Mask 35 09/20/16 00:27 90 Nasal Cannula 4.00 09/20/16 00:25 90 Nasal Cannula 4.00 09/20/16 00:00 97.7 60 22 105/51 93 09/19/16 22:19 98.1 69 20 110/60 95 09/19/16 20:31 98.4 70 18 111/62 92 09/19/16 19:33 Nasal Cannula 2.00 09/19/16 15:55 33 09/19/16 15:21 97.8 60 20 124/64 94 09/19/16 14:16 61 40 107/58 92 Nasal Cannula 4 I/O 09/19/16 09/19/16 09/19/16 09/20/16 09/20/16 09/20/16 06:59 14:59 22:59 06:59 14:59 22:59 Intake Total 120 ml 120 ml Output Total 300 ml 200 ml Balance -180 ml -80 ml Intake Oral 120 ml 120 ml IV Total 0 ml Output Urine Total 300 ml 200 ml # Bowel Movements 1 0 Result Diagram: 09/19/16 0842 09/20/16 0845 Objective Remarks GENERAL: This moderately obese elderly man who is pale and no acute distress. HEENT: Head normocephalic. Pupils are reactive. Throat is clear. Tongue was moist. Ears no inflammation. NECK: Supple. No bruits or thyroid enlargement. CHEST: Distant breath sounds with occasional wheezes bilaterally and basilar crackles more on the right side. HEART: The heart sounds are irregular, S1-S2 with no murmur, no S3. ABDOMEN: The abdomen is soft, obese with the liver just felt below the costal margin. Bowel sounds are active. EXTREMITIES: Decreased peripheral pulses. There is minimal edema. Reflexes are 1+ with no gross motor deficits. RECTAL: Exam is deferred. SKIN: Skin was dry and scaly. Assessment and Plan Assessment and Plan IMPRESSION 1. Acute bronchitis with bronchospasm. 2. Mild CHF. 3. Rule out pulmonary embolism. 4. Hypertension and hyperlipidemia. 5. Dementia and history of CVA. Plan : 1. Continue Zithromax and solumedrol. 2. Wean O2 to 2 L. 3. Nebs qid , duoneb. 4. Continue Eliquis. 5. Symbicort 160/4.5 mcg , 2puffs bid. 6. CXR ,BMP. 7. Continue daily Lasix 20 mg Yan Stewart MD Sep 20, 2016 12:51
[2016-09-20] MEDS: BUDESONIDE-FORMOTEROL 160/4.5 MCG INHALER INH SCH (21:00)
[2016-09-20] MEDS: PRAVASTATIN SOD 80 MG TAB PO SCH (21:42)
[2016-09-21] VITALS (9 sets, daily range): BP systolic 96–152; BP diastolic 51–107; PULSE 59–64; RESP 18–22; TEMP 96–98.8; O2SAT 90–96
[2016-09-21] MEDS: methylPREDNISolone SOD SUCC 40 MG/1 ML VIAL IV PUSH SCH ×2 (05:39→14:00)
[2016-09-21] MEDS: RESP: ALBUTEROL 2.5 MG/IPRATROPIUM 0.5 MG NEB (SCH) NEB ×4 (08:05→20:52)
--- NOTE | 2016-09-21 08:10 | PD.CARD.PN ---
Subjective Subjective Remarks The patient has mild shortness of breath. He went to the bathroom without asking for assistance and fell abrading his left wrist and left posterior lateral thorax. He has no hip pain but does have mild abrasion and tenderness over his left posterolateral thorax and left wrist. Objective Medications Reviewed Vital Signs / I&O Vital Signs Date Time Temp Pulse Resp B/P Pulse Ox O2 Delivery O2 Flow Rate FiO2 09/21/16 05:00 60 18 96/54 95 09/21/16 04:00 Room Air 09/21/16 00:00 59 18 104/51 09/20/16 20:39 73 22 165/77 94 09/20/16 20:00 Nasal Cannula 6.00 09/20/16 19:50 93 Nasal Cannula 6.00 09/20/16 16:00 97.6 61 20 114/56 94 09/20/16 12:00 97.9 60 20 115/56 94 09/20/16 08:25 91 Nasal Cannula 6.00 I/O 09/20/16 09/20/16 09/20/16 09/21/16 09/21/16 09/21/16 07:00 15:00 23:00 07:00 15:00 23:00 Intake Total 120 ml 620 ml Output Total 200 ml Balance -80 ml 620 ml Intake Oral 120 ml 620 ml IV Total 0 ml Output Urine Total 200 ml # Voids 1 2 # Bowel Movements 0 0 Physical Exam GENERAL: Well-nourished, well-developed patient in no apparent distress. SKIN: Warm and dry. NECK: JVD normal - less than or equal to 5 cm H20. CARDIOVASCULAR: Irregular rate and rhythm without gallops, or rubs. 1-2/6 early peaking systolic ejection murmur at the base. RESPIRATORY: Normal breath sounds - equal bilaterally. No accessory muscle use. No rales or rubs. Mild end expiratory wheezes. Mild tenderness over the left lower posterolateral thorax but with no definite crepitus or fracture. PERIPHERY: No cyanosis, or edema. Left wrist without significant tenderness or deformity. Laboratory Laboratory Tests Test 09/20/16 08:45 D-Dimer Quantitative (PE/DVT) 0.45 MG/L FEU Sodium Level 141 MEQ/L Potassium Level 4.2 MEQ/L Chloride Level 105 MEQ/L Carbon Dioxide Level 23.3 MEQ/L Anion Gap 13 MEQ/L Blood Urea Nitrogen 44 MG/DL Creatinine 1.51 MG/DL Estimat Glomerular Filtration 44 ML/MIN Rate Random Glucose 128 MG/DL Calcium Level 9.3 MG/DL Imaging Last 48 hours Impressions Chest X-Ray 09/19/16 0842 Signed Impressions: Service Date/Time: Monday, September 19, 2016 08:56 - CONCLUSION: Compensated cardiomegaly without overt congestive failure. Giorgi Jaramillo MD FACR Assessment and Plan Assessment and Plan Problems: Shortness of breath/wheezingthis happened relatively suddenly and I suspect it is either a severe bronchitis or developing a pneumonia possibly on top of mild congestive heart failure. DO NOT RESUSCITATEquality of life is important. Restraining him during the night in order to place a breathing mask which made him feel like he was suffocating is not compassionate nor appropriate. We are trying to improve him medically but also make him comfortable understanding he is a DNR and the fact that he is older and has multiple medical issues. Fall riskhe went to the bathroom without asking for help. I have encouraged compliance with this. Other problems as above Recommendations: DNRI would minimize interventions on him as he does not tolerate these. There is no indication for telemetry and I will discontinue this. I would also minimize testing and certainly would avoid restraints and masks. I have taken the liberty of ordering chest x-ray, left rib films and left wrist films. I will discontinue diuresishis mildly elevated BNP is nonspecific and he did not appear fluid overloaded. Furthermore, on the gentle diuretic, his BUN and creatinine have increased. Continue statins, low-dose aspirin and low-dose beta blockers. I will decrease his Eliquis dose and use it more prophylactically as I am concerned with him falling with full dose Eliquis. Incentive spirometry Antibiotics per primary service along with pulmonary management. Again, his care as a balance of compassion, quality of life and medical care. We want to minimize his discomfort and interventions and do the best we can medically understanding he is older and his medical condition may or may not improve. I have discussed the situation with the nurses. Kyler Ng MD Sep 21, 2016 08:10
[2016-09-21] MEDS: METOPROLOL TARTRATE 25 MG TAB PO SCH ×2 (09:00→19:57)
[2016-09-21] MEDS: OLOPATADINE HCL 0.1% OPHT SOLN 5 ML BTL EACH EYE SCH ×2 (09:00→19:57)
[2016-09-21] MEDS: PARoxetine HCL 20 MG TAB PO SCH (09:00)
[2016-09-21] MEDS: amLODIPine BESYLATE 5 MG TAB PO SCH ×2 (09:00→19:59)
[2016-09-21] MEDS: ASPIRIN EC 81 MG TABEC PO SCH (09:00)
[2016-09-21] MEDS: APIXABAN 2.5 MG TABLET PO SCH ×2 (09:00→19:57)
[2016-09-21] MEDS: AZITHROMYCIN INJ 500 MG in SODIUM CHLOR 0.9% 250 ML INJ 250 ML IV SCH (09:00)
[2016-09-21] MEDS: LISINOPRIL 20 MG TAB PO SCH (09:00)
[2016-09-21] MEDS: BUDESONIDE-FORMOTEROL 160/4.5 MCG INHALER INH SCH ×2 (09:00→19:57)
--- NOTE | 2016-09-21 09:29 | RADRPT ---
EXAM DATE/TIME: 09/21/2016 08:55 [facility] COMPARISON: RIBS LEFT (W/O PA CHEST), September 21, 2016, 9:01. CHEST PA & LAT, April 25, 2016, 8:59. INDICATIONS : Shortness of breath and back pain. MEDICAL HISTORY : None. SURGICAL HISTORY : Pacemaker. Stent ENCOUNTER: Subsequent ACUITY: 1 week PAIN SCORE: 9/10 LOCATION: Bilateral chest FINDINGS: Frontal and lateral views of the chest demonstrate a normal-sized cardiac silhouette. There is a sing le lead left chest wall cardiac pacing device present. Lungs are underinflated with atelectasis at th e lung bases. No pneumothorax is visualized. There is left supraclavicular and left chest wall soft t issue air. No rib fractures appreciated on this examination. CONCLUSION: There is abnormal soft tissue air in the left supraclavicular region and along the left chest wall. I do not see a fracture or pneumothorax on this examination. Please refer to rib x-ray series for furt her description. Sotero Kapoor MD on September 21, 2016 at 9:25 Board Certified Radiologist. This report was verified electronically.
--- NOTE | 2016-09-21 09:32 | RADRPT ---
EXAM DATE/TIME: 09/21/2016 09:01 [facility] COMPARISON: No previous studies available for comparison. INDICATIONS : Shortness of breath. Back pain. MEDICAL HISTORY : None. SURGICAL HISTORY : Pacemaker. Stent ENCOUNTER: Subsequent ACUITY: 1 week PAIN SCORE: 9/10 LOCATION: Left chest Ribs FINDINGS: Expiratory view of the chest demonstrates no pneumothorax. There is a left chest wall left supraclavi cular region soft tissue air. There are minimally displaced fractures of the left seventh and eighth lateral ribs. No other definite rib fracture is identified. CONCLUSION: 1. Minimally displaced left seventh and eighth rib fractures. 2. There is subcutaneous emphysema along the left chest wall and supraclavicular region. However, no pneumothorax is identified. Sotero Kapoor MD on September 21, 2016 at 9:28 Board Certified Radiologist. This report was verified electronically.
--- NOTE | 2016-09-21 09:40 | RADRPT ---
EXAM DATE/TIME: 09/21/2016 09:08 [facility] COMPARISON: No previous studies available for comparison. INDICATIONS : Back and wrist pain post fall. MEDICAL HISTORY : None. SURGICAL HISTORY : None. ENCOUNTER: Subsequent ACUITY: 2 days PAIN SCORE: 9/10 LOCATION: Back FINDINGS: 3 views of the left wrist demonstrate no fracture or dislocation. Mineralization is within normal quiroz its. There is severe osteoarthritis at the first carpometacarpal joint with joint space narrowing ost eophytes. No soft tissue abnormality is identified. There is arterial vascular calcification. No radi opaque foreign body is identified. CONCLUSION: 1. No acute left wrist abnormality is identified. There is severe osteoarthritis at the first CMC ghulam nt. 2. Severe arterial vascular calcification. Sotero Kapoor MD on September 21, 2016 at 9:36 Board Certified Radiologist. This report was verified electronically.
[2016-09-21] MEDS ORDERED: ACETAMINOPHEN 325 MG TAB PO PRN (10:15)
--- NOTE | 2016-09-21 11:24 | HHI.PR ---
Subjective Remarks reportedly had a fall earlier. now complaining of some pain to the left chest wall. had a laceration on the left wrist and left little finger. still with some sob. d/w the RN. Objective Vitals Vital Signs Date Time Temp Pulse Resp B/P Pulse Ox O2 Delivery O2 Flow Rate FiO2 09/21/16 10:00 96 Nasal Cannula 4.50 09/21/16 08:09 92 Nasal Cannula 6.00 09/21/16 08:00 96.0 64 22 134/107 93 09/21/16 05:00 60 18 96/54 95 09/21/16 04:00 Room Air 09/21/16 00:00 59 18 104/51 09/20/16 20:39 73 22 165/77 94 09/20/16 20:00 Nasal Cannula 6.00 09/20/16 19:50 93 Nasal Cannula 6.00 09/20/16 16:00 97.6 61 20 114/56 94 09/20/16 12:00 97.9 60 20 115/56 94 I/O 09/20/16 09/20/16 09/20/16 09/21/16 09/21/16 09/21/16 07:00 15:00 23:00 07:00 15:00 23:00 Intake Total 120 ml 620 ml Output Total 200 ml Balance -80 ml 620 ml Intake Oral 120 ml 620 ml IV Total 0 ml Output Urine Total 200 ml # Voids 1 2 # Bowel Movements 0 0 Result Diagram: 09/19/16 0842 09/20/16 0845 Imaging Last Impressions Wrist X-Ray 09/21/16 0000 Signed Impressions: Service Date/Time: Wednesday, September 21, 2016 09:08 - CONCLUSION: 1. No acute left wrist abnormality is identified. 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 2. Severe arterial vascular calcification. Sotero Kapoor MD Ribs X-Ray 09/21/16 0000 Signed Impressions: Service Date/Time: Wednesday, September 21, 2016 09:01 - CONCLUSION: 1. Minimally displaced left seventh and eighth rib fractures. 2. There is subcutaneous emphysema along the left chest wall and supraclavicular region. However, no pneumothorax is identified. Sotero Kapoor MD Chest X-Ray 09/21/16 0000 Signed Impressions: Service Date/Time: Wednesday, September 21, 2016 08:55 - CONCLUSION: There is abnormal soft tissue air in the left supraclavicular region and along the left chest wall. I do not see a fracture or pneumothorax on this examination. Please refer to rib x-ray series for further description. Sotero Kapoor MD Lung Scan-[facility] Nuclear Medicine 09/19/16 0000 Signed Impressions: Service Date/Time: Monday, September 19, 2016 18:44 - CONCLUSION: Low probability pulmonary embolism. Dieter Cao MD Objective Remarks GENERAL: with some sob but with no acute distress. CARDIOVASCULAR: Regular rate and regular rhythm without murmurs, gallops, or rubs. RESPIRATORY:wheezing has improved. tenderness on left chest wall. GASTROINTESTINAL: Abdomen soft, non-tender, nondistended. Normal, active bowel sounds MUSCULOSKELETAL: Extremities without clubbing, cyanosis, or edema. NEURO: awake and alert. skin; laceration on left wrist and left little finger. Medications and IVs Current Medications Sodium Chloride (NS Flush) 2 ml UNSCH PRN IVF FLUSH AFTER USING IV ACCESS Last administered on 09/19/16 08:45; Start 09/19/16 at 08:45 Methylprednisolone Sodium Succinate (SoluMEDROL INJ) 125 mg ONCE ONCE IVP Last administered on 09/19/16 09:06; Start 09/19/16 at 09:00; Stop 09/19/16 at 09: 01; Status DC Albuterol Sulfate 2.5 mg 2.5 mg Q15M INH Last administered on 09/19/16 09:46; Start 09/19/16 at 09:00; Stop 09/19/16 at 09:31; Status DC Azithromycin/ Sodium Chloride (Zithromax Inj/ NS 250 ml Inj) 250 ml @ 250 mls/ hr ONCE ONCE IV Last administered on 09/19/16 09:06; Start 09/19/16 at 09:00; Stop 09/19/16 at 09:59; Status DC Furosemide (Lasix Inj) 20 mg ONCE ONCE IV PUSH Last administered on 09/19/16 11:11; Start 09/19/16 at 10:30; Stop 09/20/16 at 09:40; Status DC Methylprednisolone Sodium Succinate 40 mg 40 mg Q8HR IV PUSH Last administered on 09/20/16 21:42; Start 09/19/16 at 17:00 Azithromycin/ Sodium Chloride (Zithromax Inj/ NS 250 ml Inj) 250 ml @ 250 mls/ hr Q24H IV Last administered on 09/20/16 08:55; Start 09/20/16 at 09:00 Albuterol/ Ipratropium (Duoneb Neb) 1 ampule Q4HR NEB NEB Last administered on 09/19/16 15:07; Start 09/19/16 at 12:00; Stop 09/19/16 at 17:35; Status DC Albuterol Sulfate (Albuterol Neb) 1.25 mg Q2HR NEB PRN NEB SHORTNESS OF BREATH Last administered on 09/20/16 00:22; Start 09/19/16 at 12:00 Amlodipine Besylate (Norvasc) 5 mg BID PO Last administered on 09/21/16 09:00; Start 09/19/16 at 21:00 Apixaban (Eliquis) 5 mg DAILY PO Last administered on 09/20/16 08:56; Start 09/20/16 at 09:00; Stop 09/21/16 at 08:06; Status DC Aspirin (Ecotrin Ec) 162 mg DAILY PO Last administered on 09/20/16 08:56; Start 09/20/16 at 09:00; Stop 09/20/16 at 09:40; Status DC Lisinopril (Prinivil) 20 mg DAILY PO Last administered on 09/21/16 09:00; Start 09/20/16 at 09:00 Metoprolol Tartrate (Lopressor) 12.5 mg BID PO Last administered on 09/21/16 09 :00; Start 09/19/16 at 21:00 Pravastatin Sodium (Pravachol) 80 mg HS PO Last administered on 09/20/16 21:42 ; Start 09/19/16 at 21:00 Olopatadine HCl (Patanol 0.1% Opth) 1 drop BID EACH EYE Last administered on 21:43; Start 09/19/16 at 21:00 Paroxetine HCl (Paxil) 20 mg DAILY PO Last administered on 09/20/16 08:56; Start 09/20/16 at 09:00 Furosemide (Lasix Inj) 20 mg DAILY IV PUSH Last administered on 09/20/16 08:56 ; Start 09/20/16 at 09:00; Status Hold Furosemide (Lasix) 20 mg DAILY PO Last administered on 09/20/16 08:56; Start at 09:00; Stop 09/21/16 at 06:52; Status DC Albuterol/ Ipratropium (Duoneb Neb) 1 ampule QID NEB NEB Last administered on 09/21/16 08:05; Start 09/19/16 at 20:00 Albuterol/ Ipratropium (Duoneb Neb) 1 ampule ONCE ONCE NEB ; Start 09/20/16 at 00:45; Stop 09/20/16 at 00:46; Status DC Aspirin (Ecotrin Ec) 81 mg DAILY PO ; Start 09/21/16 at 09:00 Budesonide/ Formoterol Fumarate (Symbicort 160-4.5 Inh) 2 puff Q12HR INH Last administered on 09/20/16 21:00; Start 09/20/16 at 21:00 Apixaban (Eliquis) 2.5 mg BID PO ; Start 09/21/16 at 09:00 Acetaminophen (Tylenol) 650 mg Q8H PRN PO PAIN 1-10; Start 09/21/16 at 10:15 A/P Assessment and Plan A/P - acute respiratory failure-due to acute bronchitis vs CHF V/Q scan with low probability for PE. keep on oxygen to keep O2 sat > 90%- continue with IV steroids, diuretic and Zithromax- continue neb treatment; scheduled and PRN. echo pending. cardiology and pulmonary consults appreciated. -left rib fractures after a fall earlier today fall precautions- incentive spirometry and pain control. -CAD- s/p stent placement; continue aspirin,eliquis ( the dose was reduced) , statin and BB -hypertension; resumed amlodipine,metoprolol and lisinopril -DVT prophylaxis ; on Eliquis -consulted PT -DNR status per my discussion with ( son). d/w today; will treat conservatively with no aggressive interventions. Herminio Richards MD Sep 21, 2016 11:24
[2016-09-21] MEDS: ACETAMINOPHEN/HYDROcodone 325 MG/5 MG TAB PO PRN ×2 (12:08→18:04)
[2016-09-21 14:35] LABS: BICARBONATE 25.7 MEQ/L (21.0-32.0); POTASSIUM 4.6 MEQ/L (3.5-5.1)
--- NOTE | 2016-09-21 16:08 | HHI.PR ---
Subjective Remarks Alert and C/O pain left ribs.. On 2 L o2 . V/Q scan Neg. Has some wheezing .Rib X ray shows Fracture of left 6,7th. Objective Vital Signs Date Time Temp Pulse Resp B/P Pulse Ox O2 Delivery O2 Flow Rate FiO2 09/21/16 13:17 96 Nasal Cannula 4.00 09/21/16 12:00 97.3 60 18 152/65 94 09/21/16 10:00 96 Nasal Cannula 4.50 09/21/16 08:09 92 Nasal Cannula 6.00 09/21/16 08:00 96.0 64 22 134/107 93 09/21/16 05:00 60 18 96/54 95 09/21/16 04:00 Room Air 09/21/16 00:00 59 18 104/51 09/20/16 20:39 73 22 165/77 94 09/20/16 20:00 Nasal Cannula 6.00 09/20/16 19:50 93 Nasal Cannula 6.00 I/O 09/20/16 09/20/16 09/20/16 09/21/16 09/21/16 09/21/16 07:00 15:00 23:00 07:00 15:00 23:00 Intake Total 120 ml 620 ml 720 ml Output Total 200 ml 200 ml Balance -80 ml 620 ml 520 ml Intake Oral 120 ml 620 ml 720 ml IV Total 0 ml Output Urine Total 200 ml 200 ml # Voids 1 2 # Bowel Movements 0 0 0 Result Diagram: 09/19/16 0842 09/21/16 1310 Objective Remarks GENERAL: This moderately obese elderly man who is pale and no acute distress. HEENT: Head normocephalic. Pupils are reactive. Throat is clear. Tongue was moist. Ears no inflammation. NECK: Supple. No bruits or thyroid enlargement. CHEST: Distant breath sounds with occasional wheezes bilaterally and basilar crackles .Tender chest wall. HEART: The heart sounds are irregular, S1-S2 with no murmur, no S3. ABDOMEN: The abdomen is soft, obese with the liver just felt below the costal margin. Bowel sounds are active. EXTREMITIES: Decreased peripheral pulses. There is minimal edema. Reflexes are 1+ with no gross motor deficits. RECTAL: Exam is deferred. SKIN: Skin was dry and scaly. Assessment and Plan Assessment and Plan IMPRESSION 1. Acute bronchitis with bronchospasm. 2. Mild CHF. 3. Rule out pulmonary embolism. 4. Hypertension and hyperlipidemia. 5. Dementia and history of CVA. 6. Rib Fracture Plan : 1. Continue Zithromax 2. Wean O2 to 3 L. 3. Nebs qid , duoneb. 4. Continue Eliquis. 5. Symbicort 160/4.5 mcg , 2puffs bid. 6. Solumedrol IV 40 mg BID 7. Continue daily Lasix 20 mg 8. Pain med for chest pain Yan Stewart MD Sep 21, 2016 16:08
[2016-09-21] MEDS: AZITHROMYCIN 250 MG TAB PO SCH (19:57)
[2016-09-21] MEDS: PRAVASTATIN SOD 80 MG TAB PO SCH (19:57)
[2016-09-21] MEDS: predniSONE 20 MG TAB PO SCH (19:57)
[2016-09-22] VITALS (8 sets, daily range): BP systolic 106–146; BP diastolic 56–73; PULSE 60; RESP 18–20; TEMP 97.3–98; O2SAT 91–93
[2016-09-22] MEDS: ACETAMINOPHEN/HYDROcodone 325 MG/5 MG TAB PO PRN ×2 (05:10→21:50)
--- NOTE | 2016-09-22 06:34 | RADRPT ---
EXAM DATE/TIME: 09/22/2016 06:05 [facility] COMPARISON: CHEST SINGLE AP, September 19, 2016, 8:56. INDICATIONS : Short of breath and back pain MEDICAL HISTORY : Cardiovascular disease. SURGICAL HISTORY : Coronary artery stent. Pacemaker. ENCOUNTER: Subsequent ACUITY: 1 week PAIN SCORE: 8/10 LOCATION: Bilateral chest FINDINGS: Right lower lobe atelectasis and consolidation. Small right effusion. Subcutaneous emphysema along th e left hemithorax and neck. A discrete pneumothorax is not seen. Cardiomegaly. CONCLUSION: Subcutaneous emphysema is now seen along the left hemithorax. I do not see a definite pneumothorax. Mann Forrester MD on September 22, 2016 at 6:32 Board Certified Radiologist. This report was verified electronically.
--- NOTE | 2016-09-22 07:14 | PD.CARD.PN ---
Subjective Subjective Remarks The patient denies cardiac complaints or shortness of breath but has left posterior lateral rib discomfort which is mild to moderate. Objective Medications Reviewed Vital Signs / I&O Vital Signs Date Time Temp Pulse Resp B/P Pulse Ox O2 Delivery O2 Flow Rate FiO2 09/22/16 04:00 Nasal Cannula 5.00 09/22/16 04:00 97.9 60 20 131/62 93 09/22/16 00:00 98.0 60 20 106/56 92 09/22/16 00:00 Nasal Cannula 5.00 09/21/16 20:00 Nasal Cannula 5.00 09/21/16 19:00 97.5 60 18 108/56 93 09/21/16 16:58 90 Nasal Cannula 4.00 09/21/16 16:00 98.8 60 18 101/54 90 09/21/16 13:17 96 Nasal Cannula 4.00 09/21/16 12:00 97.3 60 18 152/65 94 09/21/16 10:00 96 Nasal Cannula 4.50 09/21/16 08:09 92 Nasal Cannula 6.00 09/21/16 08:00 96.0 64 22 134/107 93 I/O 09/21/16 09/21/16 09/21/16 09/22/16 09/22/16 09/22/16 07:00 15:00 23:00 07:00 15:00 23:00 Intake Total 720 ml 360 ml Output Total 200 ml 200 ml Balance 520 ml 160 ml Intake Oral 720 ml 360 ml Output Urine Total 200 ml 200 ml # Voids 2 # Bowel Movements 0 0 1 Physical Exam GENERAL: Well-nourished, well-developed patient in no apparent distress. SKIN: Warm and dry. NECK: JVD normal - less than or equal to 5 cm H20. CARDIOVASCULAR: Irregular rate and rhythm without gallops, or rubs. 1-2/6 early peaking systolic ejection murmur at the base. RESPIRATORY: Normal breath sounds - equal bilaterally. No accessory muscle use. No rales or rubs. Minimal end expiratory wheezes. Mild tenderness over the left lower posterolateral thorax . PERIPHERY: No cyanosis, or edema. Laboratory Laboratory Tests Test 09/21/16 13:10 Sodium Level 140 MEQ/L Potassium Level 4.6 MEQ/L Chloride Level 105 MEQ/L Carbon Dioxide Level 25.7 MEQ/L Anion Gap 9 MEQ/L Blood Urea Nitrogen 61 MG/DL Creatinine 1.30 MG/DL Estimat Glomerular Filtration 52 ML/MIN Rate Random Glucose 104 MG/DL Calcium Level 9.4 MG/DL Imaging Last 48 hours Impressions Chest X-Ray 09/22/16 0600 Signed Impressions: Service Date/Time: Thursday, September 22, 2016 06:05 - CONCLUSION: Subcutaneous emphysema is now seen along the left hemithorax. I do not see a definite pneumothorax. Mann Forrester MD Wrist X-Ray 09/21/16 0000 Signed Impressions: Service Date/Time: Wednesday, September 21, 2016 09:08 - CONCLUSION: 1. No acute left wrist abnormality is identified. 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 2. Severe arterial vascular calcification. Sotero Kapoor MD Ribs X-Ray 09/21/16 0000 Signed Impressions: Service Date/Time: Wednesday, September 21, 2016 09:01 - CONCLUSION: 1. Minimally displaced left seventh and eighth rib fractures. 2. There is subcutaneous emphysema along the left chest wall and supraclavicular region. However, no pneumothorax is identified. Sotero Kapoor MD Chest X-Ray 09/21/16 0000 Signed Impressions: Service Date/Time: Wednesday, September 21, 2016 08:55 - CONCLUSION: There is abnormal soft tissue air in the left supraclavicular region and along the left chest wall. I do not see a fracture or pneumothorax on this examination. Please refer to rib x-ray series for further description. Sotero Kapoor MD Assessment and Plan Assessment and Plan Problems: Shortness of breath/wheezingthis appears most consistent with a tracheobronchitis. DO NOT RESUSCITATEquality of life is important. Restraining him during the night of admission in order to place a breathing mask which made him feel like he was suffocating is not compassionate nor appropriate. We are trying to improve him medically but also make him comfortable understanding he is a DNR and the fact that he is older and has multiple medical issues. Rib fractures from fall. Fall risk Other problems as above Recommendations: DNRI would minimize interventions on him as he does not tolerate these. There is no indication for telemetry . I would also minimize testing and certainly would avoid restraints and masks. I have discussed situation with my sister, who is power of criminal defense attorney along with myself and she along with my 2 sons agree with conservative care. Continue statins, low-dose aspirin and low-dose beta blockers. Decreased Eliquis dose area Incentive spirometry Antibiotics per primary service along with pulmonary management. Again, his care as a balance of compassion, quality of life and medical care. We want to minimize his discomfort and interventions and do the best we can medically understanding he is older and his medical condition may or may not improve. I have discussed the situation with the nurses. Kyler Ng MD Sep 22, 2016 07:14
[2016-09-22] MEDS: RESP: ALBUTEROL 2.5 MG/IPRATROPIUM 0.5 MG NEB (SCH) NEB ×4 (07:27→19:45)
[2016-09-22] MEDS: predniSONE 20 MG TAB PO SCH (08:41)
[2016-09-22] MEDS: AZITHROMYCIN 250 MG TAB PO SCH (08:41)
[2016-09-22] MEDS: PARoxetine HCL 20 MG TAB PO SCH (08:41)
[2016-09-22] MEDS: amLODIPine BESYLATE 5 MG TAB PO SCH ×2 (08:41→21:51)
[2016-09-22] MEDS: APIXABAN 2.5 MG TABLET PO SCH ×2 (08:41→21:51)
[2016-09-22] MEDS: ASPIRIN EC 81 MG TABEC PO SCH (08:41)
--- NOTE | 2016-09-22 08:41 | HHI.PR ---
Subjective Remarks in no acute distress. has some wheezing. pain to the left chest wall is better today. no new complaints. d/w the RN and no other acute issues over night. Objective Vitals Vital Signs Date Time Temp Pulse Resp B/P Pulse Ox O2 Delivery O2 Flow Rate FiO2 09/22/16 07:27 92 Nasal Cannula 5.00 09/22/16 04:00 Nasal Cannula 5.00 09/22/16 04:00 97.9 60 20 131/62 93 09/22/16 00:00 98.0 60 20 106/56 92 09/22/16 00:00 Nasal Cannula 5.00 09/21/16 20:00 Nasal Cannula 5.00 09/21/16 19:00 97.5 60 18 108/56 93 09/21/16 16:58 90 Nasal Cannula 4.00 09/21/16 16:00 98.8 60 18 101/54 90 09/21/16 13:17 96 Nasal Cannula 4.00 09/21/16 12:00 97.3 60 18 152/65 94 09/21/16 10:00 96 Nasal Cannula 4.50 I/O 09/21/16 09/21/16 09/21/16 09/22/16 09/22/16 09/22/16 07:00 15:00 23:00 07:00 15:00 23:00 Intake Total 720 ml 360 ml 360 ml Output Total 200 ml 200 ml 400 ml Balance 520 ml 160 ml -40 ml Intake Oral 720 ml 360 ml 360 ml Output Urine Total 200 ml 200 ml 400 ml # Voids 2 # Bowel Movements 0 0 1 0 Result Diagram: 09/19/16 0842 09/21/16 1310 Imaging Last Impressions Chest X-Ray 09/22/16 0600 Signed Impressions: Service Date/Time: Thursday, September 22, 2016 06:05 - CONCLUSION: Subcutaneous emphysema is now seen along the left hemithorax. I do not see a definite pneumothorax. Mann Forrester MD Wrist X-Ray 09/21/16 0000 Signed Impressions: Service Date/Time: Wednesday, September 21, 2016 09:08 - CONCLUSION: 1. No acute left wrist abnormality is identified. 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 2. Severe arterial vascular calcification. Sotero Kapoor MD Ribs X-Ray 09/21/16 0000 Signed Impressions: Service Date/Time: Wednesday, September 21, 2016 09:01 - CONCLUSION: 1. Minimally displaced left seventh and eighth rib fractures. 2. There is subcutaneous emphysema along the left chest wall and supraclavicular region. However, no pneumothorax is identified. Sotero Kapoor MD Lung Scan-[facility] Nuclear Medicine 09/19/16 0000 Signed Impressions: Service Date/Time: Monday, September 19, 2016 18:44 - CONCLUSION: Low probability pulmonary embolism. Dieter Cao MD Objective Remarks GENERAL: with some sob but with no acute distress. CARDIOVASCULAR: Regular rate and regular rhythm without murmurs, gallops, or rubs. RESPIRATORY:wheezing has improved. tenderness on left chest wall. GASTROINTESTINAL: Abdomen soft, non-tender, nondistended. Normal, active bowel sounds MUSCULOSKELETAL: Extremities without clubbing, cyanosis, or edema. NEURO: awake and alert. skin; laceration on left wrist and left little finger. Procedures none Medications and IVs Current Medications Sodium Chloride (NS Flush) 2 ml UNSCH PRN IVF FLUSH AFTER USING IV ACCESS Last administered on 09/19/16 08:45; Start 09/19/16 at 08:45 Methylprednisolone Sodium Succinate (SoluMEDROL INJ) 125 mg ONCE ONCE IVP Last administered on 09/19/16 09:06; Start 09/19/16 at 09:00; Stop 09/19/16 at 09: 01; Status DC Albuterol Sulfate 2.5 mg 2.5 mg Q15M INH Last administered on 09/19/16 09:46; Start 09/19/16 at 09:00; Stop 09/19/16 at 09:31; Status DC Azithromycin/ Sodium Chloride (Zithromax Inj/ NS 250 ml Inj) 250 ml @ 250 mls/ hr ONCE ONCE IV Last administered on 09/19/16 09:06; Start 09/19/16 at 09:00; Stop 09/19/16 at 09:59; Status DC Furosemide (Lasix Inj) 20 mg ONCE ONCE IV PUSH Last administered on 09/19/16 11:11; Start 09/19/16 at 10:30; Stop 09/20/16 at 09:40; Status DC Methylprednisolone Sodium Succinate 40 mg 40 mg Q8HR IV PUSH Last administered on 09/20/16 21:42; Start 09/19/16 at 17:00; Stop 09/21/16 at 16:06; Status DC Azithromycin/ Sodium Chloride (Zithromax Inj/ NS 250 ml Inj) 250 ml @ 250 mls/ hr Q24H IV Last administered on 09/20/16 08:55; Start 09/20/16 at 09:00; Stop at 19:03; Status DC Albuterol/ Ipratropium (Duoneb Neb) 1 ampule Q4HR NEB NEB Last administered on 09/19/16 15:07; Start 09/19/16 at 12:00; Stop 09/19/16 at 17:35; Status DC Albuterol Sulfate (Albuterol Neb) 1.25 mg Q2HR NEB PRN NEB SHORTNESS OF BREATH Last administered on 09/20/16 00:22; Start 09/19/16 at 12:00 Amlodipine Besylate (Norvasc) 5 mg BID PO Last administered on 09/21/16 19:59; Start 09/19/16 at 21:00 Apixaban (Eliquis) 5 mg DAILY PO Last administered on 09/20/16 08:56; Start 09/20/16 at 09:00; Stop 09/21/16 at 08:06; Status DC Aspirin (Ecotrin Ec) 162 mg DAILY PO Last administered on 09/20/16 08:56; Start 09/20/16 at 09:00; Stop 09/20/16 at 09:40; Status DC Lisinopril (Prinivil) 20 mg DAILY PO Last administered on 09/21/16 09:00; Start 09/20/16 at 09:00 Metoprolol Tartrate (Lopressor) 12.5 mg BID PO Last administered on 09/21/16 19 :57; Start 09/19/16 at 21:00 Pravastatin Sodium (Pravachol) 80 mg HS PO Last administered on 09/21/16 19:57 ; Start 09/19/16 at 21:00 Olopatadine HCl (Patanol 0.1% Opt) 1 drop BID EACH EYE Last administered on 19:57; Start 09/19/16 at 21:00 Paroxetine HCl (Paxil) 20 mg DAILY PO Last administered on 09/21/16 09:00; Start 09/20/16 at 09:00 Furosemide (Lasix Inj) 20 mg DAILY IV PUSH Last administered on 09/20/16 08:56 ; Start 09/20/16 at 09:00; Status Hold Furosemide (Lasix) 20 mg DAILY PO Last administered on 09/20/16 08:56; Start at 09:00; Stop 09/21/16 at 06:52; Status DC Albuterol/ Ipratropium (Duoneb Neb) 1 ampule QID NEB NEB Last administered on 09/22/16 07:27; Start 09/19/16 at 20:00 Albuterol/ Ipratropium (Duoneb Neb) 1 ampule ONCE ONCE NEB ; Start 09/20/16 at 00:45; Stop 09/20/16 at 00:46; Status DC Aspirin (Ecotrin Ec) 81 mg DAILY PO Last administered on 09/21/16 09:00; Start 09/21/16 at 09:00 Budesonide/ Formoterol Fumarate (Symbicort 160-4.5 Inh) 2 puff Q12HR INH Last administered on 09/21/16 19:57; Start 09/20/16 at 21:00 Apixaban (Eliquis) 2.5 mg BID PO Last administered on 09/21/16 19:57; Start 09/21/16 at 09:00 Acetaminophen (Tylenol) 650 mg Q8H PRN PO PAIN 1-5; Start 09/21/16 at 10:15 Acetaminophen/ Hydrocodone Bitart ([place] 5-325 Mg) 1 tab Q6H PRN PO PAIN 6-10 Last administered on 09/22/16 05:10; Start 09/21/16 at 11:30 Methylprednisolone Sodium Succinate (SoluMEDROL INJ) 40 mg BID IV PUSH ; Start 09/22/16 at 09:00; Stop 09/22/16 at 09:00; Status DC Azithromycin (Zithromax) 500 mg DAILY PO Last administered on 09/21/16 19:57; Start 09/21/16 at 19:00 Prednisone (Deltasone) 40 mg DAILY PO Last administered on 09/21/16 19:57; Start 09/21/16 at 19:00 A/P Assessment and Plan A/P - acute respiratory failure-due to acute bronchitis V/Q scan with low probability for PE. keep on oxygen to keep O2 sat > 90%- continue with steroid and antibiotic; both were switched to po- continue neb treatment. echo was cancelled due to rib fractures. cardiology and pulmonary following. -left rib fractures after a fall fall precautions- incentive spirometry and pain control. -CAD- s/p stent placement; continue aspirin,eliquis ( the dose was reduced) , statin and BB -hypertension; resumed amlodipine,metoprolol and lisinopril -DVT prophylaxis ; on Eliquis -consulted PT -DNR status per my discussion with ( son). continue with conservative treatment. Herminio Richards MD Sep 22, 2016 08:41
[2016-09-22] MEDS: BUDESONIDE-FORMOTEROL 160/4.5 MCG INHALER INH SCH ×2 (08:42→21:53)
[2016-09-22] MEDS: METOPROLOL TARTRATE 25 MG TAB PO SCH ×2 (08:42→21:52)
[2016-09-22] MEDS: OLOPATADINE HCL 0.1% OPHT SOLN 5 ML BTL EACH EYE SCH ×2 (08:42→21:54)
[2016-09-22] MEDS: LISINOPRIL 20 MG TAB PO SCH (08:42)
[2016-09-22] MEDS ORDERED: methylPREDNISolone SOD SUCC 40 MG/1 ML VIAL IV PUSH SCH (09:00)
[2016-09-22] MEDS: RESP: ALBUTEROL 1.25 MG/3 ML NEB (PRN) NEB (10:30)
--- NOTE | 2016-09-22 20:18 | HHI.PR ---
Subjective Remarks Alert and C/O some pain in left ribs.. On 2 L o2 . V/Q scan Neg. Has no wheezing .Rib X ray shows Fracture of left 6,7th. Objective Vital Signs Date Time Temp Pulse Resp B/P Pulse Ox O2 Delivery O2 Flow Rate FiO2 09/22/16 16:02 97.9 60 20 138/73 92 09/22/16 16:00 92 Nasal Cannula 4.00 09/22/16 15:45 93 Nasal Cannula 5.00 09/22/16 14:58 91 Nasal Cannula 4.00 09/22/16 12:02 97.3 60 20 122/56 91 09/22/16 08:02 97.4 60 18 145/70 92 09/22/16 08:00 92 5.00 09/22/16 07:27 92 Nasal Cannula 5.00 09/22/16 04:00 Nasal Cannula 5.00 09/22/16 04:00 97.9 60 20 131/62 93 09/22/16 00:00 98.0 60 20 106/56 92 09/22/16 00:00 Nasal Cannula 5.00 I/O 09/21/16 09/21/16 09/21/16 09/22/16 09/22/16 09/22/16 07:00 15:00 23:00 07:00 15:00 23:00 Intake Total 720 ml 360 ml 360 ml 920 ml Output Total 200 ml 200 ml 400 ml Balance 520 ml 160 ml -40 ml 920 ml Intake Oral 720 ml 360 ml 360 ml 920 ml IV Total 0 ml Output Urine Total 200 ml 200 ml 400 ml # Voids 2 4 # Bowel Movements 0 0 1 0 0 Result Diagram: 09/19/16 0842 09/21/16 1310 Objective Remarks GENERAL: This moderately obese elderly man who is pale and no acute distress. HEENT: Head normocephalic. Pupils are reactive. Throat is clear. NECK: Supple. No bruits or thyroid enlargement. CHEST: Distant breath sounds with occasional wheezes bilaterally and basilar crackles .Tender left chest wall. HEART: The heart sounds are irregular, S1-S2 with no murmur, no S3. ABDOMEN: The abdomen is soft, obese with the liver just felt below the costal margin. Bowel sounds are active. EXTREMITIES: Decreased peripheral pulses. There is minimal edema. Reflexes are 1+ with no gross motor deficits. SKIN: Skin was dry and scaly. Assessment and Plan Assessment and Plan IMPRESSION 1. Acute bronchitis with bronchospasm. 2. Mild CHF. 3. Rule out pulmonary embolism. 4. Hypertension and hyperlipidemia. 5. Dementia and history of CVA. 6. Rib Fracture Plan : 1. Continue Zithromax PO for 3 days 2. Wean O2 to 3 L. 3. Nebs qid , duoneb. 4. Continue Eliquis. 5. Symbicort 160/4.5 mcg , 2puffs bid. 6. D/C Solumedrol IV 7. Continue daily Lasix 20 mg 8. Prednisone 40 mg daily and taper over 2 weeks. Yan Stewart MD Sep 22, 2016 20:18
[2016-09-22] MEDS: PRAVASTATIN SOD 80 MG TAB PO SCH (21:52)
[2016-09-23] VITALS (7 sets, daily range): BP systolic 117–184; BP diastolic 56–81; PULSE 60–61; RESP 18–20; TEMP 97.3–98.5; O2SAT 91–93
[2016-09-23] MEDS: ACETAMINOPHEN/HYDROcodone 325 MG/5 MG TAB PO PRN ×2 (06:09→14:46)
--- NOTE | 2016-09-23 07:23 | PD.CARD.PN ---
Subjective Subjective Remarks He denies shortness of breath, GI symptoms or bleeding but has significant left lateral thoracic pain from the rib fractures. Objective Medications Reviewed Vital Signs / I&O Vital Signs Date Time Temp Pulse Resp B/P Pulse Ox O2 Delivery O2 Flow Rate FiO2 09/23/16 04:00 97.6 60 20 159/72 93 09/23/16 00:00 97.8 60 20 143/73 91 09/22/16 20:00 97.5 60 20 146/70 91 09/22/16 20:00 91 Nasal Cannula 5.00 09/22/16 16:02 97.9 60 20 138/73 92 09/22/16 16:00 92 Nasal Cannula 4.00 09/22/16 15:45 93 Nasal Cannula 5.00 09/22/16 14:58 91 Nasal Cannula 4.00 09/22/16 12:02 97.3 60 20 122/56 91 09/22/16 08:02 97.4 60 18 145/70 92 09/22/16 08:00 92 5.00 09/22/16 07:27 92 Nasal Cannula 5.00 I/O 09/22/16 09/22/16 09/22/16 09/23/16 09/23/16 09/23/16 07:00 15:00 23:00 07:00 15:00 23:00 Intake Total 360 ml 920 ml 0 ml Output Total 400 ml Balance -40 ml 920 ml 0 ml Intake Oral 360 ml 920 ml 0 ml IV Total 0 ml Output Urine Total 400 ml # Voids 4 0 # Bowel Movements 0 0 Physical Exam GENERAL: Well-nourished, well-developed patient in no apparent distress. SKIN: Warm and dry. NECK: JVD normal - less than or equal to 5 cm H20. CARDIOVASCULAR: Irregular rate and rhythm without gallops, or rubs. 1-2/6 early peaking systolic ejection murmur at the base. RESPIRATORY: Normal breath sounds - equal bilaterally. No accessory muscle use. No rales or rubs. Mild end expiratory wheezes. Mild tenderness over the left lower posterolateral thorax . PERIPHERY: No cyanosis, or edema. Laboratory Reviewed Imaging Last 48 hours Impressions Chest X-Ray 09/22/16 0600 Signed Impressions: Service Date/Time: Thursday, September 22, 2016 06:05 - CONCLUSION: Subcutaneous emphysema is now seen along the left hemithorax. I do not see a definite pneumothorax. Mann Forrester MD Assessment and Plan Assessment and Plan Problems: Shortness of breath/wheezingthis appears most consistent with a tracheobronchitis. This is now exacerbated by splinting from rib fractures. DO NOT RESUSCITATEquality of life is important. Restraining him during the night of admission in order to place a breathing mask which made him feel like he was suffocating is not compassionate nor appropriate. We are trying to improve him medically but also make him comfortable understanding he is a DNR and the fact that he is older and has multiple medical issues. Rib fractures from fall. Fall risk Other problems as above Recommendations: DNRI would minimize interventions on him as he does not tolerate these. There is no indication for telemetry . I would also minimize testing and certainly would avoid restraints and masks. I have discussed situation with my sister, who is power of patent prosecution attorney along with myself and she along with my 2 sons agree with conservative care. Continue statins, low-dose aspirin and low-dose beta blockers. Decreased Eliquis dose area Incentive spirometry Antibiotics per primary service along with pulmonary management. Pain management Again, his care as a balance of compassion, quality of life and medical care. We want to minimize his discomfort and interventions and do the best we can medically understanding he is older and his medical condition may or may not improve. I have discussed the situation with the nurses. Kyler Ng MD Sep 23, 2016 07:23
--- NOTE | 2016-09-23 08:04 | HHI.PR ---
Subjective Remarks afebrile. sob seems to be improving. has some pain to the left chest wall. no fever. Objective Vitals Vital Signs Date Time Temp Pulse Resp B/P Pulse Ox O2 Delivery O2 Flow Rate FiO2 09/23/16 04:00 97.6 60 20 159/72 93 09/23/16 00:00 97.8 60 20 143/73 91 09/22/16 20:00 97.5 60 20 146/70 91 09/22/16 20:00 91 Nasal Cannula 5.00 09/22/16 16:02 97.9 60 20 138/73 92 09/22/16 16:00 92 Nasal Cannula 4.00 09/22/16 15:45 93 Nasal Cannula 5.00 09/22/16 14:58 91 Nasal Cannula 4.00 09/22/16 12:02 97.3 60 20 122/56 91 09/22/16 08:02 97.4 60 18 145/70 92 I/O 09/22/16 09/22/16 09/22/16 09/23/16 09/23/16 09/23/16 06:59 14:59 22:59 06:59 14:59 22:59 Intake Total 360 ml 920 ml 0 ml 75 ml Output Total 400 ml Balance -40 ml 920 ml 0 ml 75 ml Intake Oral 360 ml 920 ml 0 ml 75 ml IV Total 0 ml Output Urine Total 400 ml # Voids 4 0 6 # Bowel Movements 0 0 Result Diagram: 09/19/16 0842 09/21/16 1310 Imaging Last Impressions Chest X-Ray 09/22/16 0600 Signed Impressions: Service Date/Time: Thursday, September 22, 2016 06:05 - CONCLUSION: Subcutaneous emphysema is now seen along the left hemithorax. I do not see a definite pneumothorax. Mann Forrester MD Wrist X-Ray 09/21/16 0000 Signed Impressions: Service Date/Time: Wednesday, September 21, 2016 09:08 - CONCLUSION: 1. No acute left wrist abnormality is identified. 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 2. Severe arterial vascular calcification. Sotero Kapoor MD Ribs X-Ray 09/21/16 0000 Signed Impressions: Service Date/Time: Wednesday, September 21, 2016 09:01 - CONCLUSION: 1. Minimally displaced left seventh and eighth rib fractures. 2. There is subcutaneous emphysema along the left chest wall and supraclavicular region. However, no pneumothorax is identified. Sotero Kapoor MD Lung Scan-VQ Nuclear Medicine 09/19/16 0000 Signed Impressions: Service Date/Time: Monday, September 19, 2016 18:44 - CONCLUSION: Low probability pulmonary embolism. Dieter Cao MD Objective Remarks GENERAL: with some sob but with no acute distress. CARDIOVASCULAR: Regular rate and regular rhythm without murmurs, gallops, or rubs. RESPIRATORY:wheezing has improved. tenderness on left chest wall. GASTROINTESTINAL: Abdomen soft, non-tender, nondistended. Normal, active bowel sounds MUSCULOSKELETAL: Extremities without clubbing, cyanosis, or edema. NEURO: awake and alert. skin; laceration on left wrist and left little finger. Procedures none Medications and IVs Current Medications Sodium Chloride (NS Flush) 2 ml UNSCH PRN IVF FLUSH AFTER USING IV ACCESS Last administered on 09/19/16 08:45; Start 09/19/16 at 08:45 Methylprednisolone Sodium Succinate (SoluMEDROL INJ) 125 mg ONCE ONCE IVP Last administered on 09/19/16 09:06; Start 09/19/16 at 09:00; Stop 09/19/16 at 09: 01; Status DC Albuterol Sulfate 2.5 mg 2.5 mg Q15M INH Last administered on 09/19/16 09:46; Start 09/19/16 at 09:00; Stop 09/19/16 at 09:31; Status DC Azithromycin/ Sodium Chloride (Zithromax Inj/ NS 250 ml Inj) 250 ml @ 250 mls/ hr ONCE ONCE IV Last administered on 09/19/16 09:06; Start 09/19/16 at 09:00; Stop 09/19/16 at 09:59; Status DC Furosemide (Lasix Inj) 20 mg ONCE ONCE IV PUSH Last administered on 09/19/16 11:11; Start 09/19/16 at 10:30; Stop 09/20/16 at 09:40; Status DC Methylprednisolone Sodium Succinate 40 mg 40 mg Q8HR IV PUSH Last administered on 09/20/16 21:42; Start 09/19/16 at 17:00; Stop 09/21/16 at 16:06; Status DC Azithromycin/ Sodium Chloride (Zithromax Inj/ NS 250 ml Inj) 250 ml @ 250 mls/ hr Q24H IV Last administered on 09/20/16 08:55; Start 09/20/16 at 09:00; Stop at 19:03; Status DC Albuterol/ Ipratropium (Duoneb Neb) 1 ampule Q4HR NEB NEB Last administered on 09/19/16 15:07; Start 09/19/16 at 12:00; Stop 09/19/16 at 17:35; Status DC Albuterol Sulfate (Albuterol Neb) 1.25 mg Q2HR NEB PRN NEB SHORTNESS OF BREATH Last administered on 09/22/16 10:30; Start 09/19/16 at 12:00 Amlodipine Besylate (Norvasc) 5 mg BID PO Last administered on 09/22/16 21:51; Start 09/19/16 at 21:00 Apixaban (Eliquis) 5 mg DAILY PO Last administered on 09/20/16 08:56; Start 09/20/16 at 09:00; Stop 09/21/16 at 08:06; Status DC Aspirin (Ecotrin Ec) 162 mg DAILY PO Last administered on 09/20/16 08:56; Start 09/20/16 at 09:00; Stop 09/20/16 at 09:40; Status DC Lisinopril (Prinivil) 20 mg DAILY PO Last administered on 09/22/16 08:42; Start 09/20/16 at 09:00 Metoprolol Tartrate (Lopressor) 12.5 mg BID PO Last administered on 09/22/16 21 :52; Start 09/19/16 at 21:00 Pravastatin Sodium (Pravachol) 80 mg HS PO Last administered on 09/22/16 21:52 ; Start 09/19/16 at 21:00 Olopatadine HCl (Patanol 0.1% Opth) 1 drop BID EACH EYE Last administered on 21:54; Start 09/19/16 at 21:00 Paroxetine HCl (Paxil) 20 mg DAILY PO Last administered on 09/22/16 08:41; Start 09/20/16 at 09:00 Furosemide (Lasix Inj) 20 mg DAILY IV PUSH Last administered on 09/20/16 08:56 ; Start 09/20/16 at 09:00; Status Hold Furosemide (Lasix) 20 mg DAILY PO Last administered on 09/20/16 08:56; Start at 09:00; Stop 09/21/16 at 06:52; Status DC Albuterol/ Ipratropium (Duoneb Neb) 1 ampule QID NEB NEB Last administered on 09/22/16 15:43; Start 09/19/16 at 20:00 Albuterol/ Ipratropium (Duoneb Neb) 1 ampule ONCE ONCE NEB ; Start 09/20/16 at 00:45; Stop 09/20/16 at 00:46; Status DC Aspirin (Ecotrin Ec) 81 mg DAILY PO Last administered on 09/22/16 08:41; Start 09/21/16 at 09:00 Budesonide/ Formoterol Fumarate (Symbicort 160-4.5 Inh) 2 puff Q12HR INH Last administered on 09/22/16 21:53; Start 09/20/16 at 21:00 Apixaban (Eliquis) 2.5 mg BID PO Last administered on 09/22/16 21:51; Start 09/21/16 at 09:00 Acetaminophen (Tylenol) 650 mg Q8H PRN PO PAIN 1-5 Last administered on 10:20; Start 09/21/16 at 10:15 Acetaminophen/ Hydrocodone Bitart ([place] 5-325 Mg) 1 tab Q6H PRN PO PAIN 6-10 Last administered on 09/23/16 06:09; Start 09/21/16 at 11:30 Methylprednisolone Sodium Succinate (SoluMEDROL INJ) 40 mg BID IV PUSH ; Start 09/22/16 at 09:00; Stop 09/22/16 at 09:00; Status DC Azithromycin (Zithromax) 500 mg DAILY PO Last administered on 09/22/16 08:41; Start 09/21/16 at 19:00 Prednisone (Deltasone) 40 mg DAILY PO Last administered on 09/22/16 08:41; Start 09/21/16 at 19:00 A/P Assessment and Plan A/P - acute respiratory failure-due to acute bronchitis - improving. V/Q scan with low probability for PE. keep on oxygen to keep O2 sat > 90%- continue with steroid and antibiotic; both were switched to po- continue neb treatment. one bottle of blood cultures with gram positive cocci- remains afebrile- likely contamination. echo was cancelled due to rib fractures. cardiology and pulmonary following. -left rib fractures after a fall fall precautions- incentive spirometry and pain control; will increase norco today for better pain control. -CAD- s/p stent placement; continue aspirin,eliquis ( the dose was reduced) , statin and BB -hypertension; resumed amlodipine,metoprolol and lisinopril -DVT prophylaxis ; on Eliquis -consulted PT -DNR status per my discussion with ( son). continue with conservative treatment. Discharge Planning possible discharge tomorrow if stable with better pain control. Herminio Richards MD Sep 23, 2016 08:04
[2016-09-23] MEDS: AZITHROMYCIN 250 MG TAB PO SCH (08:22)
[2016-09-23] MEDS: LISINOPRIL 20 MG TAB PO SCH (08:22)
[2016-09-23] MEDS: APIXABAN 2.5 MG TABLET PO SCH ×2 (08:22→21:53)
[2016-09-23] MEDS: METOPROLOL TARTRATE 25 MG TAB PO SCH ×2 (08:22→21:53)
[2016-09-23] MEDS: BUDESONIDE-FORMOTEROL 160/4.5 MCG INHALER INH SCH ×2 (08:23→21:54)
[2016-09-23] MEDS: PARoxetine HCL 20 MG TAB PO SCH (08:23)
[2016-09-23] MEDS: ASPIRIN EC 81 MG TABEC PO SCH (08:23)
[2016-09-23] MEDS: predniSONE 20 MG TAB PO SCH (08:23)
[2016-09-23] MEDS: amLODIPine BESYLATE 5 MG TAB PO SCH ×2 (08:23→21:53)
[2016-09-23] MEDS: OLOPATADINE HCL 0.1% OPHT SOLN 5 ML BTL EACH EYE SCH ×2 (08:23→21:54)
[2016-09-23] MEDS: RESP: ALBUTEROL 2.5 MG/IPRATROPIUM 0.5 MG NEB (SCH) NEB ×3 (09:55→17:06)
--- NOTE | 2016-09-23 19:53 | HHI.PR ---
Subjective Remarks Alert and C/O some pain in left ribs.. Keeps O2 off sat was 90. V/Q scan Neg. Less wheezing .Rib X ray shows Fracture of left 6,7th. Objective Vital Signs Date Time Temp Pulse Resp B/P Pulse Ox O2 Delivery O2 Flow Rate FiO2 09/23/16 16:00 98.5 60 20 130/62 93 09/23/16 16:00 Nasal Cannula 5.00 Humidified 09/23/16 12:00 Nasal Cannula 5.00 Humidified 09/23/16 12:00 98.0 61 20 145/72 93 09/23/16 09:58 92 Nasal Cannula 5.00 09/23/16 08:00 97.6 60 20 184/81 93 09/23/16 08:00 Nasal Cannula 5.00 Humidified 09/23/16 04:00 97.6 60 20 159/72 93 09/23/16 00:00 97.8 60 20 143/73 91 09/22/16 20:00 97.5 60 20 146/70 91 09/22/16 20:00 91 Nasal Cannula 5.00 I/O 09/22/16 09/22/16 09/22/16 09/23/16 09/23/16 09/23/16 07:00 15:00 23:00 07:00 15:00 23:00 Intake Total 360 ml 920 ml 0 ml 75 ml 480 ml Output Total 400 ml 900 ml Balance -40 ml 920 ml 0 ml 75 ml -420 ml Intake Oral 360 ml 920 ml 0 ml 75 ml 480 ml IV Total 0 ml 0 ml Output Urine Total 400 ml 900 ml # Voids 4 0 6 # Bowel Movements 0 0 0 Result Diagram: 09/19/16 0842 09/21/16 1310 Objective Remarks GENERAL: This moderately obese elderly man who is in no acute distress. HEENT: Head normocephalic. Pupils are reactive. Throat is clear. NECK: Supple. No bruits or thyroid enlargement. CHEST: Distant breath sounds with occasional wheezes bilaterally and basilar crackles .Tender left chest wall. HEART: The heart sounds are irregular, S1-S2 with no murmur, no S3. ABDOMEN: The abdomen is soft, obese with the liver just felt below the costal margin. Bowel sounds are active. EXTREMITIES: Decreased peripheral pulses. There is minimal edema. Reflexes are 1+ with no gross motor deficits. SKIN: Skin was dry . Assessment and Plan Assessment and Plan IMPRESSION 1. Acute bronchitis with bronchospasm. 2. Mild CHF. 3. Rule out pulmonary embolism. 4. Hypertension and hyperlipidemia. 5. Dementia and history of CVA. 6. Rib Fracture Plan : 1. Continue Zithromax 2. Wean O2 to 3 L. 3. Nebs qid , duoneb. 4. Continue Eliquis. 5. Symbicort 160/4.5 mcg , 2puffs bid. 6. Labs in am 7. Continue daily Lasix 20 mg 8. Prednisone 20 mg daily and taper over 1 week Yan Stewart MD Sep 23, 2016 19:53
[2016-09-23] MEDS: PRAVASTATIN SOD 80 MG TAB PO SCH (21:53)
[2016-09-24] VITALS (8 sets, daily range): BP systolic 115–163; BP diastolic 60–86; PULSE 60–66; RESP 18–20; TEMP 97.1–98.2; O2SAT 92–96
[2016-09-24] MEDS: ACETAMINOPHEN/HYDROcodone 325 MG/5 MG TAB PO PRN ×4 (05:56→23:39)
--- NOTE | 2016-09-24 07:33 | PD.CARD.PN ---
Subjective Subjective Remarks Mildly confused this morning. Denies chest pain, shortness of breath or other symptoms. Objective Medications Reviewed Vital Signs / I&O Vital Signs Date Time Temp Pulse Resp B/P Pulse Ox O2 Delivery O2 Flow Rate FiO2 09/24/16 05:53 Nasal Cannula 3.00 09/24/16 04:00 97.1 61 20 163/86 95 09/24/16 00:00 97.4 60 20 149/75 93 09/23/16 20:06 Nasal Cannula 4.00 09/23/16 20:00 97.3 60 18 117/56 91 09/23/16 16:00 98.5 60 20 130/62 93 09/23/16 16:00 Nasal Cannula 5.00 Humidified 09/23/16 12:00 Nasal Cannula 5.00 Humidified 09/23/16 12:00 98.0 61 20 145/72 93 09/23/16 09:58 92 Nasal Cannula 5.00 09/23/16 08:00 97.6 60 20 184/81 93 09/23/16 08:00 Nasal Cannula 5.00 Humidified I/O 09/23/16 09/23/16 09/23/16 09/24/16 09/24/16 09/24/16 07:00 15:00 23:00 07:00 15:00 23:00 Intake Total 75 ml 480 ml 480 ml 220 ml Output Total 900 ml 200 ml 650 ml Balance 75 ml -420 ml 280 ml -430 ml Intake Oral 75 ml 480 ml 480 ml 220 ml IV Total 0 ml Output Urine Total 900 ml 200 ml 650 ml # Voids 6 1 # Bowel Movements 0 0 0 Physical Exam GENERAL: Well-nourished, well-developed patient in no apparent distress. Mildly short of breath. SKIN: Warm and dry. NECK: JVD normal - less than or equal to 5 cm H20. CARDIOVASCULAR: Irregular rate and rhythm without gallops, or rubs. 1-2/6 early peaking systolic ejection murmur at the base. RESPIRATORY: Normal breath sounds - equal bilaterally. No accessory muscle use. No rales or rubs. Mild end expiratory wheezes. Mild tenderness over the left lower posterolateral thorax . PERIPHERY: No cyanosis, or edema. Laboratory Reviewed Imaging Reviewed Assessment and Plan Assessment and Plan Problems: Shortness of breath/wheezingthis appears most consistent with a tracheobronchitis. This is now exacerbated by splinting from rib fractures. DO NOT RESUSCITATEquality of life is important. Restraining him during the night of admission in order to place a breathing mask which made him feel like he was suffocating is not compassionate nor appropriate. We are trying to improve him medically but also make him comfortable understanding he is a DNR and the fact that he is older and has multiple medical issues. Rib fractures from fall. Fall risk Confusionmost likely exacerbated by narcotics. Other problems as above Recommendations: I have spoken to the staff and they will call the hospitalist about decreasing pain medication dosing. DNRI would minimize interventions on him as he does not tolerate these. There is no indication for telemetry . I would also minimize testing and certainly would avoid restraints and masks. I have discussed situation with my sister, who is power of assistant county attorney along with myself and she along with my 2 sons agree with conservative care. Continue statins, low-dose aspirin and low-dose beta blockers. Decreased Eliquis dose area Incentive spirometry Antibiotics per primary service along with pulmonary management. Pain management Again, his care as a balance of compassion, quality of life and medical care. We want to minimize his discomfort and interventions and do the best we can medically understanding he is older and his medical condition may or may not improve. He certainly does not appear ready to go to a [place] [facility] facility. Kyler Ng MD Sep 24, 2016 07:33
[2016-09-24] MEDS ORDERED: predniSONE 10 MG TAB PO SCH (09:00)
[2016-09-24] MEDS: METOPROLOL TARTRATE 25 MG TAB PO SCH ×2 (09:16→21:49)
[2016-09-24] MEDS: LISINOPRIL 20 MG TAB PO SCH (09:17)
[2016-09-24] MEDS: ASPIRIN EC 81 MG TABEC PO SCH (09:17)
[2016-09-24] MEDS: APIXABAN 2.5 MG TABLET PO SCH ×2 (09:17→21:49)
[2016-09-24] MEDS: amLODIPine BESYLATE 5 MG TAB PO SCH ×2 (09:17→21:49)
[2016-09-24] MEDS: PARoxetine HCL 20 MG TAB PO SCH (09:17)
[2016-09-24] MEDS: AZITHROMYCIN 250 MG TAB PO SCH (09:17)
[2016-09-24] MEDS: OLOPATADINE HCL 0.1% OPHT SOLN 5 ML BTL EACH EYE SCH ×2 (09:18→21:00)
[2016-09-24] MEDS: BUDESONIDE-FORMOTEROL 160/4.5 MCG INHALER INH SCH ×2 (09:18→21:00)
--- NOTE | 2016-09-24 10:13 | HHI.PR ---
Subjective Remarks still with some pain to the left chest wall. some on and off confusion noted. still with bilateral wheezing. Objective Vitals Vital Signs Date Time Temp Pulse Resp B/P Pulse Ox O2 Delivery O2 Flow Rate FiO2 09/24/16 05:53 Nasal Cannula 3.00 09/24/16 04:00 97.1 61 20 163/86 95 09/24/16 00:00 97.4 60 20 149/75 93 09/23/16 20:06 Nasal Cannula 4.00 09/23/16 20:00 97.3 60 18 117/56 91 09/23/16 16:00 98.5 60 20 130/62 93 09/23/16 16:00 Nasal Cannula 5.00 Humidified 09/23/16 12:00 Nasal Cannula 5.00 Humidified 09/23/16 12:00 98.0 61 20 145/72 93 I/O 09/23/16 09/23/16 09/23/16 09/24/16 09/24/16 09/24/16 07:00 15:00 23:00 07:00 15:00 23:00 Intake Total 75 ml 480 ml 480 ml 220 ml Output Total 900 ml 200 ml 650 ml Balance 75 ml -420 ml 280 ml -430 ml Intake Oral 75 ml 480 ml 480 ml 220 ml IV Total 0 ml Output Urine Total 900 ml 200 ml 650 ml # Voids 6 1 # Bowel Movements 0 0 0 Result Diagram: 09/21/16 1310 Imaging Last Impressions Chest X-Ray 09/22/16 0600 Signed Impressions: Service Date/Time: Thursday, September 22, 2016 06:05 - CONCLUSION: Subcutaneous emphysema is now seen along the left hemithorax. I do not see a definite pneumothorax. Mann Forrester MD Wrist X-Ray 09/21/16 0000 Signed Impressions: Service Date/Time: Wednesday, September 21, 2016 09:08 - CONCLUSION: 1. No acute left wrist abnormality is identified. 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 2. Severe arterial vascular calcification. Sotero Kapoor MD Ribs X-Ray 09/21/16 0000 Signed Impressions: Service Date/Time: Wednesday, September 21, 2016 09:01 - CONCLUSION: 1. Minimally displaced left seventh and eighth rib fractures. 2. There is subcutaneous emphysema along the left chest wall and supraclavicular region. However, no pneumothorax is identified. Sotero Kapoor MD Lung Scan-VQ Nuclear Medicine 09/19/16 0000 Signed Impressions: Service Date/Time: Monday, September 19, 2016 18:44 - CONCLUSION: Low probability pulmonary embolism. Dieter Cao MD Objective Remarks GENERAL: with some sob but with no acute distress. CARDIOVASCULAR: Regular rate and regular rhythm without murmurs, gallops, or rubs. RESPIRATORY:wheezing has improved. tenderness on left chest wall. GASTROINTESTINAL: Abdomen soft, non-tender, nondistended. Normal, active bowel sounds MUSCULOSKELETAL: Extremities without clubbing, cyanosis, or edema. NEURO: awake and alert. skin; laceration on left wrist and left little finger. Procedures none Medications and IVs Current Medications Sodium Chloride (NS Flush) 2 ml UNSCH PRN IVF FLUSH AFTER USING IV ACCESS Last administered on 09/19/16 08:45; Start 09/19/16 at 08:45 Methylprednisolone Sodium Succinate (SoluMEDROL INJ) 125 mg ONCE ONCE IVP Last administered on 09/19/16 09:06; Start 09/19/16 at 09:00; Stop 09/19/16 at 09: 01; Status DC Albuterol Sulfate 2.5 mg 2.5 mg Q15M INH Last administered on 09/19/16 09:46; Start 09/19/16 at 09:00; Stop 09/19/16 at 09:31; Status DC Azithromycin/ Sodium Chloride (Zithromax Inj/ NS 250 ml Inj) 250 ml @ 250 mls/ hr ONCE ONCE IV Last administered on 09/19/16 09:06; Start 09/19/16 at 09:00; Stop 09/19/16 at 09:59; Status DC Furosemide (Lasix Inj) 20 mg ONCE ONCE IV PUSH Last administered on 09/19/16 11:11; Start 09/19/16 at 10:30; Stop 09/20/16 at 09:40; Status DC Methylprednisolone Sodium Succinate 40 mg 40 mg Q8HR IV PUSH Last administered on 09/20/16 21:42; Start 09/19/16 at 17:00; Stop 09/21/16 at 16:06; Status DC Azithromycin/ Sodium Chloride (Zithromax Inj/ NS 250 ml Inj) 250 ml @ 250 mls/ hr Q24H IV Last administered on 09/20/16 08:55; Start 09/20/16 at 09:00; Stop at 19:03; Status DC Albuterol/ Ipratropium (Duoneb Neb) 1 ampule Q4HR NEB NEB Last administered on 09/19/16 15:07; Start 09/19/16 at 12:00; Stop 09/19/16 at 17:35; Status DC Albuterol Sulfate (Albuterol Neb) 1.25 mg Q2HR NEB PRN NEB SHORTNESS OF BREATH Last administered on 09/22/16 10:30; Start 09/19/16 at 12:00 Amlodipine Besylate (Norvasc) 5 mg BID PO Last administered on 09/24/16 09:17; Start 09/19/16 at 21:00 Apixaban (Eliquis) 5 mg DAILY PO Last administered on 09/20/16 08:56; Start 09/20/16 at 09:00; Stop 09/21/16 at 08:06; Status DC Aspirin (Ecotrin Ec) 162 mg DAILY PO Last administered on 09/20/16 08:56; Start 09/20/16 at 09:00; Stop 09/20/16 at 09:40; Status DC Lisinopril (Prinivil) 20 mg DAILY PO Last administered on 09/24/16 09:17; Start 09/20/16 at 09:00 Metoprolol Tartrate (Lopressor) 12.5 mg BID PO Last administered on 09/24/16 09 :16; Start 09/19/16 at 21:00 Pravastatin Sodium (Pravachol) 80 mg HS PO Last administered on 09/23/16 21:53 ; Start 09/19/16 at 21:00 Olopatadine HCl (Patanol 0.1% Opth) 1 drop BID EACH EYE Last administered on 09:18; Start 09/19/16 at 21:00 Paroxetine HCl (Paxil) 20 mg DAILY PO Last administered on 09/24/16 09:17; Start 09/20/16 at 09:00 Furosemide (Lasix Inj) 20 mg DAILY IV PUSH Last administered on 09/20/16 08:56 ; Start 09/20/16 at 09:00; Status Hold Furosemide (Lasix) 20 mg DAILY PO Last administered on 09/20/16 08:56; Start at 09:00; Stop 09/21/16 at 06:52; Status DC Albuterol/ Ipratropium (Duoneb Neb) 1 ampule QID NEB NEB Last administered on 09/23/16 17:06; Start 09/19/16 at 20:00; Stop 09/23/16 at 20:00; Status DC Albuterol/ Ipratropium (Duoneb Neb) 1 ampule ONCE ONCE NEB ; Start 09/20/16 at 00:45; Stop 09/20/16 at 00:46; Status DC Aspirin (Ecotrin Ec) 81 mg DAILY PO Last administered on 09/24/16 09:17; Start 09/21/16 at 09:00 Budesonide/ Formoterol Fumarate (Symbicort 160-4.5 Inh) 2 puff Q12HR INH Last administered on 09/24/16 09:18; Start 09/20/16 at 21:00 Apixaban (Eliquis) 2.5 mg BID PO Last administered on 09/24/16 09:17; Start 09/21/16 at 09:00 Acetaminophen (Tylenol) 650 mg Q8H PRN PO PAIN 1-3 Last administered on 10:20; Start 09/21/16 at 10:15 Acetaminophen/ Hydrocodone Bitart (Bells 5-325 Mg) 1 tab Q6H PRN PO PAIN 4-6 Last administered on 09/23/16 06:09; Start 09/21/16 at 11:30 Methylprednisolone Sodium Succinate (SoluMEDROL INJ) 40 mg BID IV PUSH ; Start 09/22/16 at 09:00; Stop 09/22/16 at 09:00; Status DC Azithromycin (Zithromax) 500 mg DAILY PO Last administered on 09/24/16 09:17; Start 09/21/16 at 19:00 Prednisone (Deltasone) 40 mg DAILY PO Last administered on 09/23/16 08:23; Start 09/21/16 at 19:00; Stop 09/23/16 at 19:54; Status DC Acetaminophen/ Hydrocodone Bitart (Bells 5-325 Mg) 2 tab Q6H PRN PO PAIN 7-10 Last administered on 09/24/16 05:56; Start 09/23/16 at 08:00 Prednisone (Deltasone) 30 mg DAILY PO Last administered on 09/24/16 09:16; Start 09/24/16 at 09:00 A/P Assessment and Plan A/P - acute respiratory failure-due to acute bronchitis - improving slowly. V/Q scan with low probability for PE. keep on oxygen to keep O2 sat > 90%- continue with steroid and antibiotic; both were switched to po- continue neb treatment. one bottle of blood cultures with gram positive cocci- remains afebrile- likely contamination. echo was cancelled due to rib fractures. cardiology and pulmonary following. -left rib fractures after a fall fall precautions- incentive spirometry and pain control; will decrease norco due to worsening confusion. -CAD- s/p stent placement; continue aspirin,eliquis ( the dose was reduced) , statin and BB -hypertension; resumed amlodipine,metoprolol and lisinopril -DVT prophylaxis ; on Eliquis -consulted PT -DNR status per my discussion with ( son). continue with conservative treatment. Discharge Planning not ready for discharge. dc planning to SNF. d/w the case management. Herminio Richards MD Sep 24, 2016 10:13
--- NOTE | 2016-09-24 19:24 | HHI.PR ---
Subjective Remarks Alert and feels better.On O2 3L. V/Q scan Neg. Less wheezing .No fever Objective Vital Signs Date Time Temp Pulse Resp B/P Pulse Ox O2 Delivery O2 Flow Rate FiO2 09/24/16 16:00 97.4 60 20 146/78 96 09/24/16 12:00 97.5 60 20 115/66 95 09/24/16 11:43 93 Nasal Cannula 4.00 09/24/16 08:00 97.9 61 20 137/68 95 09/24/16 08:00 96 Nasal Cannula 3.00 50 09/24/16 05:53 Nasal Cannula 3.00 09/24/16 04:00 97.1 61 20 163/86 95 09/24/16 00:00 97.4 60 20 149/75 93 09/23/16 20:06 Nasal Cannula 4.00 09/23/16 20:00 97.3 60 18 117/56 91 I/O 09/23/16 09/23/16 09/23/16 09/24/16 09/24/16 09/24/16 07:00 15:00 23:00 07:00 15:00 23:00 Intake Total 75 ml 480 ml 480 ml 220 ml 360 ml Output Total 900 ml 200 ml 650 ml 400 ml Balance 75 ml -420 ml 280 ml -430 ml -40 ml Intake Oral 75 ml 480 ml 480 ml 220 ml 360 ml IV Total 0 ml Output Urine Total 900 ml 200 ml 650 ml 400 ml # Voids 6 1 # Bowel Movements 0 0 0 1 Result Diagram: 09/21/16 1310 Objective Remarks GENERAL: This moderately obese elderly man who is in no acute distress. HEENT: Head normocephalic. Pupils are reactive. Throat is clear. NECK: Supple. No bruits or thyroid enlargement. CHEST: Distant breath sounds with occasional wheezes bilaterally and few basilar crackles .Tender left chest wall. HEART: The heart sounds are irregular, S1-S2 with no murmur, no S3. ABDOMEN: The abdomen is soft, obese with the liver just felt below the costal margin. Bowel sounds are active. EXTREMITIES: Decreased peripheral pulses. There is minimal edema. Reflexes are 1+ with no gross motor deficits. SKIN: Skin was dry . Assessment and Plan Assessment and Plan IMPRESSION 1. Acute bronchitis with bronchospasm. 2. Mild CHF. 3. Rule out pulmonary embolism. 4. Hypertension and hyperlipidemia. 5. Dementia and history of CVA. 6. Rib Fracture Plan : 1. Continue Zithromax PO 2. Wean O2 to 3 L. 3. Nebs tid , duoneb. 4. Continue Eliquis. 5. Symbicort 160/4.5 mcg , 2puffs bid. 6. CXR in am 7. Continue daily Lasix 20 mg 8. Prednisone 15 mg daily aYn Stewart MD Sep 24, 2016 19:24
[2016-09-24] MEDS: PRAVASTATIN SOD 80 MG TAB PO SCH (21:49)
[2016-09-25] VITALS (7 sets, daily range): BP systolic 105–150; BP diastolic 58–84; PULSE 60–61; RESP 18; TEMP 97.4–98.6; O2SAT 91–94
--- NOTE | 2016-09-25 07:25 | RADRPT ---
EXAM DATE/TIME: 09/25/2016 06:47 [facility] COMPARISON: CHEST SINGLE AP, September 22, 2016, 6:05. INDICATIONS : Short of breath, back pain, evaluate effusions MEDICAL HISTORY : Cardiovascular disease. SURGICAL HISTORY : Coronary artery stent. Pacemaker. ENCOUNTER: Subsequent ACUITY: 1 week PAIN SCORE: 10/10 LOCATION: Bilateral chest FINDINGS: Unipolar pacemaker again noted overlying the left hemithorax with atherosclerotic changes of the aort a and cardiomegaly. Suspect small right pleural effusion with mild prominence of right basilar bronch ovascular markings and possible atelectasis. Subcutaneous emphysema left lower chest wall faintly nirmal reciated CONCLUSION: Essentially stable chest. No pneumothorax Hunter Bach MD on September 25, 2016 at 7:21 Board Certified Radiologist. This report was verified electronically.
--- NOTE | 2016-09-25 07:35 | PD.CARD.PN ---
Subjective Subjective Remarks Mild to moderate rib pain. He denies shortness of breath, GI symptoms or other complaints. He does state that he is very thirsty. His by mouth intake has been fair. Objective Medications Reviewed Vital Signs / I&O Vital Signs Date Time Temp Pulse Resp B/P Pulse Ox O2 Delivery O2 Flow Rate FiO2 09/25/16 04:50 97.4 61 18 140/84 94 09/24/16 23:25 97.9 60 18 130/60 92 09/24/16 20:21 Nasal Cannula 4.00 09/24/16 20:07 Nasal Cannula 4.00 09/24/16 19:17 98.2 66 18 115/75 94 09/24/16 16:00 97.4 60 20 146/78 96 09/24/16 12:00 97.5 60 20 115/66 95 09/24/16 11:43 93 Nasal Cannula 4.00 09/24/16 08:00 97.9 61 20 137/68 95 09/24/16 08:00 96 Nasal Cannula 3.00 50 I/O 09/24/16 09/24/16 09/24/16 09/25/16 09/25/16 09/25/16 07:00 15:00 23:00 07:00 15:00 23:00 Intake Total 220 ml 600 ml 240 ml Output Total 650 ml 400 ml Balance -430 ml 200 ml 240 ml Intake Oral 220 ml 600 ml 240 ml Output Urine Total 650 ml 400 ml # Voids 1 1 5 # Bowel Movements 0 1 0 Physical Exam GENERAL: Well-nourished, well-developed patient in no apparent distress. Mildly short of breath. SKIN: Warm and dry. NECK: JVD normal - less than or equal to 5 cm H20. CARDIOVASCULAR: Irregular rate and rhythm without gallops, or rubs. 1-2/6 early peaking systolic ejection murmur at the base. RESPIRATORY: Normal breath sounds - equal bilaterally. No accessory muscle use. No rales or rubs. Mild inspiratory and expiratory rhonchi. Mild tenderness over the left lower posterolateral thorax . PERIPHERY: No cyanosis, or edema. Assessment and Plan Assessment and Plan Problems: Shortness of breath/wheezingthis appears most consistent with a tracheobronchitis. This is now exacerbated by splinting from rib fractures. DO NOT RESUSCITATEquality of life is important. Restraining him during the night of admission in order to place a breathing mask which made him feel like he was suffocating is not compassionate nor appropriate. We are trying to improve him medically but also make him comfortable understanding he is a DNR and the fact that he is older and has multiple medical issues. Rib fractures from fall. Fall risk Other problems as above Recommendations: Pain control. DNRI would minimize interventions on him as he does not tolerate these. There is no indication for telemetry . I would also minimize testing and certainly would avoid restraints and masks. I have discussed situation with my sister, who is power of claim attorney along with myself and she along with my 2 sons agree with conservative care. Continue statins, low-dose aspirin and low-dose beta blockers. Decreased Eliquis dose area Incentive spirometry and deep breathing which I have discussed with him. Encourage by mouth intake as I do think he may be getting a little dehydrated. He is off of diuretics and we will keep him off this. Antibiotics per primary service along with pulmonary management. Pain management Again, his care as a balance of compassion, quality of life and medical care. We want to minimize his discomfort and interventions and do the best we can medically understanding he is older and his medical condition may or may not improve. Hopeful transfer to SNF in the near future. We would want to make sure that care is coordinated there that he can be seen fairly promptly by a medical professional and they can follow him there given his rib fracture and pulmonary status along with other medical issues. Kyler Ng MD Sep 25, 2016 07:35
[2016-09-25] MEDS: OLOPATADINE HCL 0.1% OPHT SOLN 5 ML BTL EACH EYE SCH ×2 (08:22→21:31)
[2016-09-25] MEDS: BUDESONIDE-FORMOTEROL 160/4.5 MCG INHALER INH SCH ×2 (08:22→21:31)
[2016-09-25] MEDS: amLODIPine BESYLATE 5 MG TAB PO SCH ×2 (08:23→21:34)
[2016-09-25] MEDS: APIXABAN 2.5 MG TABLET PO SCH ×2 (08:23→21:34)
[2016-09-25] MEDS: METOPROLOL TARTRATE 25 MG TAB PO SCH ×2 (08:23→21:33)
[2016-09-25] MEDS: PARoxetine HCL 20 MG TAB PO SCH (08:23)
[2016-09-25] MEDS: LISINOPRIL 20 MG TAB PO SCH (08:23)
[2016-09-25] MEDS: AZITHROMYCIN 250 MG TAB PO SCH (08:23)
[2016-09-25] MEDS: predniSONE 10 MG TAB PO SCH (08:23)
[2016-09-25] MEDS: ASPIRIN EC 81 MG TABEC PO SCH (08:24)
[2016-09-25] MEDS: ACETAMINOPHEN/HYDROcodone 325 MG/5 MG TAB PO PRN (08:24)
--- NOTE | 2016-09-25 08:43 | HHI.PR ---
Subjective Remarks looks more alert today. still with some pain to the left chest wall. d/w the RN and no acute issues over night. Objective Vitals Vital Signs Date Time Temp Pulse Resp B/P Pulse Ox O2 Delivery O2 Flow Rate FiO2 09/25/16 08:00 97.7 60 18 150/83 94 09/25/16 04:50 97.4 61 18 140/84 94 09/24/16 23:25 97.9 60 18 130/60 92 09/24/16 20:21 Nasal Cannula 4.00 09/24/16 20:07 Nasal Cannula 4.00 09/24/16 19:17 98.2 66 18 115/75 94 09/24/16 16:00 97.4 60 20 146/78 96 09/24/16 12:00 97.5 60 20 115/66 95 09/24/16 11:43 93 Nasal Cannula 4.00 I/O 09/24/16 09/24/16 09/24/16 09/25/16 09/25/16 09/25/16 06:59 14:59 22:59 06:59 14:59 22:59 Intake Total 220 ml 600 ml 240 ml Output Total 650 ml 400 ml Balance -430 ml 200 ml 240 ml Intake Oral 220 ml 600 ml 240 ml Output Urine Total 650 ml 400 ml # Voids 1 1 5 # Bowel Movements 0 1 0 Result Diagram: 09/21/16 1310 Imaging Last Impressions Chest X-Ray 09/25/16 0600 Signed Impressions: Service Date/Time: September 06:47 - CONCLUSION: Essentially stable chest. No pneumothorax Hunter Bach MD Wrist X-Ray 09/21/16 0000 Signed Impressions: Service Date/Time: Wednesday, September 21, 2016 09:08 - CONCLUSION: 1. No acute left wrist abnormality is identified. 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 2. Severe arterial vascular calcification. Sotero Kapoor MD Ribs X-Ray 09/21/16 0000 Signed Impressions: Service Date/Time: Wednesday, September 21, 2016 09:01 - CONCLUSION: 1. Minimally displaced left seventh and eighth rib fractures. 2. There is subcutaneous emphysema along the left chest wall and supraclavicular region. However, no pneumothorax is identified. Sotero Kapoor MD Lung Scan-VQ Nuclear Medicine 09/19/16 0000 Signed Impressions: Service Date/Time: Monday, September 19, 2016 18:44 - CONCLUSION: Low probability pulmonary embolism. Dieter Cao MD Objective Remarks GENERAL: with some sob but with no acute distress. CARDIOVASCULAR: Regular rate and regular rhythm without murmurs, gallops, or rubs. RESPIRATORY:wheezing has improved. tenderness on left chest wall. GASTROINTESTINAL: Abdomen soft, non-tender, nondistended. Normal, active bowel sounds MUSCULOSKELETAL: Extremities without clubbing, cyanosis, or edema. NEURO: awake and alert. Procedures none Medications and IVs Last Impressions Chest X-Ray 09/25/16 0600 Signed Impressions: Service Date/Time: September 06:47 - CONCLUSION: Essentially stable chest. No pneumothorax Hunter Bach MD Wrist X-Ray 09/21/16 0000 Signed Impressions: Service Date/Time: Wednesday, September 21, 2016 09:08 - CONCLUSION: 1. No acute left wrist abnormality is identified. 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 2. Severe arterial vascular calcification. Sotero Kapoor MD Ribs X-Ray 09/21/16 0000 Signed Impressions: Service Date/Time: Wednesday, September 21, 2016 09:01 - CONCLUSION: 1. Minimally displaced left seventh and eighth rib fractures. 2. There is subcutaneous emphysema along the left chest wall and supraclavicular region. However, no pneumothorax is identified. Sotero Kapoor MD Lung Scan-VQ Nuclear Medicine 09/19/16 0000 Signed Impressions: Service Date/Time: Monday, September 19, 2016 18:44 - CONCLUSION: Low probability pulmonary embolism. Dieter Cao MD A/P Assessment and Plan A/P - acute respiratory failure-due to acute bronchitis - improving slowly. V/Q scan with low probability for PE. keep on oxygen to keep O2 sat > 90%- continue with steroid and antibiotic; both were switched to po- continue neb treatment. one bottle of blood cultures with gram positive cocci- remains afebrile- likely contamination. echo was cancelled due to rib fractures. cardiology and pulmonary following. -left rib fractures after a fall fall precautions- incentive spirometry and pain control. -CAD- s/p stent placement; continue aspirin,eliquis ( the dose was reduced) , statin and BB -hypertension; resumed amlodipine,metoprolol and lisinopril -DVT prophylaxis ; on Eliquis -consulted PT -DNR status per my discussion with ( son). continue with conservative treatment. Discharge Planning dc planning to SNF within the next couple of days if stable with better pain control. Herminio Richards MD Sep 25, 2016 08:43 Herminio Richards MD Sep 25, 2016 08:43
--- NOTE | 2016-09-25 12:44 | HHI.PR ---
Subjective Remarks Alert and feels better.On O2 3L. Has some chest pains Less wheezing .No fever Objective Vital Signs Date Time Temp Pulse Resp B/P Pulse Ox O2 Delivery O2 Flow Rate FiO2 09/25/16 12:00 98.1 60 18 134/72 91 09/25/16 08:40 Nasal Cannula 4.00 09/25/16 08:00 97.7 60 18 150/83 94 09/25/16 04:50 97.4 61 18 140/84 94 09/24/16 23:25 97.9 60 18 130/60 92 09/24/16 20:21 Nasal Cannula 4.00 09/24/16 20:07 Nasal Cannula 4.00 09/24/16 19:17 98.2 66 18 115/75 94 09/24/16 16:00 97.4 60 20 146/78 96 I/O 09/24/16 09/24/16 09/24/16 09/25/16 09/25/16 09/25/16 07:00 15:00 23:00 07:00 15:00 23:00 Intake Total 220 ml 600 ml 240 ml Output Total 650 ml 400 ml Balance -430 ml 200 ml 240 ml Intake Oral 220 ml 600 ml 240 ml Output Urine Total 650 ml 400 ml # Voids 1 1 5 # Bowel Movements 0 1 0 Result Diagram: 09/21/16 1310 Objective Remarks GENERAL: This moderately obese elderly man who is in no acute distress. HEENT: Head normocephalic. Pupils are reactive. Throat is clear. NECK: Supple. No bruits or thyroid enlargement. CHEST: Distant breath sounds with few basilar crackles .Tender left chest wall. HEART: The heart sounds are irregular, S1-S2 with no murmur, no S3. ABDOMEN: The abdomen is soft, obese with the liver just felt below the costal margin. Bowel sounds are active. EXTREMITIES: Decreased peripheral pulses. There is minimal edema. Reflexes are 1+ with no gross motor deficits. SKIN: Skin was dry . Assessment and Plan Assessment and Plan IMPRESSION 1. Acute bronchitis with bronchospasm. 2. Mild CHF. 3. Rule out pulmonary embolism. 4. Hypertension and hyperlipidemia. 5. Dementia and history of CVA. 6. Rib Fracture Plan : 1. D/C Zithromax. 2. Wean O2 to 3 L. 3. Nebs tid , duoneb. 4. Continue Eliquis. 5. Symbicort 160/4.5 mcg , 2puffs bid. 6. Labs in am. 7. Continue daily Lasix 20 mg 8. Prednisone 10 mg daily and stop in 5 days 9. To rehab soon Yan Stewart MD Sep 25, 2016 12:44
[2016-09-25] MEDS: PRAVASTATIN SOD 80 MG TAB PO SCH (21:34)
[2016-09-25] MEDS: ACETAMINOPHEN/HYDROcodone 325 MG/7.5 MG TAB PO PRN (21:35)
[2016-09-26] VITALS (7 sets, daily range): BP systolic 107–151; BP diastolic 59–81; PULSE 60–63; RESP 18–22; TEMP 97.2–98.2; O2SAT 92–98
[2016-09-26] MEDS: ACETAMINOPHEN/HYDROcodone 325 MG/7.5 MG TAB PO PRN ×3 (04:53→21:57)
--- NOTE | 2016-09-26 06:39 | PD.CARD.PN ---
Subjective Subjective Remarks In a significant amount of pain, was up a lot of the night. Trouble clearing his secretions but no real shortness of breath or other complaints. He is afraid he is going to . Objective Medications Reviewed Vital Signs / I&O Vital Signs Date Time Temp Pulse Resp B/P Pulse Ox O2 Delivery O2 Flow Rate FiO2 09/26/16 04:44 97.2 63 18 143/81 92 09/25/16 23:18 98.6 60 18 126/78 91 09/25/16 20:55 97.5 60 18 142/83 92 09/25/16 20:00 Nasal Cannula 4.00 09/25/16 16:00 98.0 60 18 105/58 93 09/25/16 12:53 92 Nasal Cannula 4.00 09/25/16 12:00 98.1 60 18 134/72 91 09/25/16 08:40 Nasal Cannula 4.00 09/25/16 08:00 97.7 60 18 150/83 94 I/O 09/25/16 09/25/16 09/25/16 09/26/16 09/26/16 09/26/16 07:00 15:00 23:00 07:00 15:00 23:00 Intake Total 240 ml 480 ml 100 ml 240 ml Output Total 50 ml 250 ml Balance 240 ml 480 ml 50 ml -10 ml Intake Oral 240 ml 480 ml 100 ml 240 ml Output Urine Total 50 ml 250 ml # Voids 5 2 # Bowel Movements 0 0 0 0 Physical Exam GENERAL: Well-nourished, well-developed patient in no apparent distress. Mildly short of breath. SKIN: Warm and dry. NECK: JVD normal - less than or equal to 5 cm H20. CARDIOVASCULAR: Irregular rate and rhythm without gallops, or rubs. 1-2/6 early peaking systolic ejection murmur at the base. RESPIRATORY: Normal breath sounds - equal bilaterally. No accessory muscle use. No rales or rubs. Chest with rhonchi. Moderate tenderness over the left lower posterolateral thorax . PERIPHERY: No cyanosis, or edema. Assessment and Plan Assessment and Plan Problems: Shortness of breath/wheezingthis appears most consistent with a tracheobronchitis. This is now exacerbated by splinting from rib fractures. DO NOT RESUSCITATEquality of life is important. Rib fractures from fall. Fall risk Other problems as above Recommendations: Pain control. DNRI would minimize interventions on him as he does not tolerate these. There is no indication for telemetry . I would also minimize testing and certainly would avoid restraints and masks. I have discussed situation with my sister, who is power of senior trial attorney along with myself and she along with my 2 sons agree with conservative care. Continue statins, low-dose aspirin and low-dose beta blockers. Decreased Eliquis dose area Incentive spirometry and deep breathing which I have discussed with him. Encourage by mouth intake as I do think he may be getting a little dehydrated. He is off of diuretics and we will keep him off this. Antibiotics per primary service along with pulmonary management. Pain management Again, his care as a balance of compassion, quality of life and medical care. We want to minimize his discomfort and interventions and do the best we can medically understanding he is older and his medical condition may or may not improve. Hopeful transfer to SNF in the near future. We would want to make sure that care is coordinated there that he can be seen fairly promptly by a medical professional and they can follow him there given his rib fracture and pulmonary status along with other medical issues. Overall he is in a fairly weakened condition. I do not see him getting back to assisted living and suspect he will be permanently in a assisted facility , once he is transferred. Kyler Ng MD Sep 26, 2016 06:39
[2016-09-26] MEDS: RESP: ALBUTEROL 1.25 MG/3 ML NEB (PRN) NEB (07:36)
[2016-09-26] MEDS: ASPIRIN EC 81 MG TABEC PO SCH (08:46)
[2016-09-26] MEDS: LISINOPRIL 20 MG TAB PO SCH (08:46)
[2016-09-26] MEDS: APIXABAN 2.5 MG TABLET PO SCH ×2 (08:46→21:57)
[2016-09-26] MEDS: PARoxetine HCL 20 MG TAB PO SCH (08:46)
[2016-09-26] MEDS: amLODIPine BESYLATE 5 MG TAB PO SCH ×2 (08:46→21:57)
[2016-09-26] MEDS: METOPROLOL TARTRATE 25 MG TAB PO SCH ×2 (08:46→21:58)
[2016-09-26] MEDS: predniSONE 10 MG TAB PO SCH (08:47)
[2016-09-26] MEDS: AZITHROMYCIN 250 MG TAB PO SCH (08:47)
[2016-09-26] MEDS: OLOPATADINE HCL 0.1% OPHT SOLN 5 ML BTL EACH EYE SCH ×2 (08:50→21:58)
[2016-09-26] MEDS: BUDESONIDE-FORMOTEROL 160/4.5 MCG INHALER INH SCH ×2 (08:50→21:58)
--- NOTE | 2016-09-26 11:41 | HHI.PR ---
Subjective Remarks sitting on the chair with no acute distress. looks more comfortable but still with some pain to the left chest wall. d/w the RN. Objective Vitals Vital Signs Date Time Temp Pulse Resp B/P Pulse Ox O2 Delivery O2 Flow Rate FiO2 09/26/16 08:03 98.1 60 22 151/81 92 09/26/16 07:38 96 Nasal Cannula 4.00 09/26/16 04:44 97.2 63 18 143/81 92 09/25/16 23:18 98.6 60 18 126/78 91 09/25/16 20:55 97.5 60 18 142/83 92 09/25/16 20:00 Nasal Cannula 4.00 09/25/16 16:00 98.0 60 18 105/58 93 09/25/16 12:53 92 Nasal Cannula 4.00 09/25/16 12:00 98.1 60 18 134/72 91 I/O 09/25/16 09/25/16 09/25/16 09/26/16 09/26/16 09/26/16 06:59 14:59 22:59 06:59 14:59 22:59 Intake Total 240 ml 480 ml 100 ml 240 ml Output Total 50 ml 250 ml Balance 240 ml 480 ml 50 ml -10 ml Intake Oral 240 ml 480 ml 100 ml 240 ml Output Urine Total 50 ml 250 ml # Voids 5 2 # Bowel Movements 0 0 0 0 Imaging Last Impressions Chest X-Ray 09/25/16 0600 Signed Impressions: Service Date/Time: September 06:47 - CONCLUSION: Essentially stable chest. No pneumothorax Hunter Bach MD Wrist X-Ray 09/21/16 0000 Signed Impressions: Service Date/Time: Wednesday, September 21, 2016 09:08 - CONCLUSION: 1. No acute left wrist abnormality is identified. 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 2. Severe arterial vascular calcification. Sotero Kapoor MD Ribs X-Ray 09/21/16 0000 Signed Impressions: Service Date/Time: Wednesday, September 21, 2016 09:01 - CONCLUSION: 1. Minimally displaced left seventh and eighth rib fractures. 2. There is subcutaneous emphysema along the left chest wall and supraclavicular region. However, no pneumothorax is identified. Sotero Kapoor MD Lung Scan- Nuclear Medicine 09/19/16 0000 Signed Impressions: Service Date/Time: Monday, September 19, 2016 18:44 - CONCLUSION: Low probability pulmonary embolism. Dieter Cao MD Objective Remarks GENERAL: with some sob but with no acute distress. CARDIOVASCULAR: Regular rate and regular rhythm without murmurs, gallops, or rubs. RESPIRATORY:wheezing has improved. tenderness on left chest wall. GASTROINTESTINAL: Abdomen soft, non-tender, nondistended. Normal, active bowel sounds MUSCULOSKELETAL: Extremities without clubbing, cyanosis, or edema. NEURO: awake and alert. Procedures none Medications and IVs Current Medications Sodium Chloride (NS Flush) 2 ml UNSCH PRN IVF FLUSH AFTER USING IV ACCESS Last administered on 09/19/16 08:45; Start 09/19/16 at 08:45 Methylprednisolone Sodium Succinate (SoluMEDROL INJ) 125 mg ONCE ONCE IVP Last administered on 09/19/16 09:06; Start 09/19/16 at 09:00; Stop 09/19/16 at 09: 01; Status DC Albuterol Sulfate 2.5 mg 2.5 mg Q15M INH Last administered on 09/19/16 09:46; Start 09/19/16 at 09:00; Stop 09/19/16 at 09:31; Status DC Azithromycin/ Sodium Chloride (Zithromax Inj/ NS 250 ml Inj) 250 ml @ 250 mls/ hr ONCE ONCE IV Last administered on 09/19/16 09:06; Start 09/19/16 at 09:00; Stop 09/19/16 at 09:59; Status DC Furosemide (Lasix Inj) 20 mg ONCE ONCE IV PUSH Last administered on 09/19/16 11:11; Start 09/19/16 at 10:30; Stop 09/20/16 at 09:40; Status DC Methylprednisolone Sodium Succinate 40 mg 40 mg Q8HR IV PUSH Last administered on 09/20/16 21:42; Start 09/19/16 at 17:00; Stop 09/21/16 at 16:06; Status DC Azithromycin/ Sodium Chloride (Zithromax Inj/ NS 250 ml Inj) 250 ml @ 250 mls/ hr Q24H IV Last administered on 09/20/16 08:55; Start 09/20/16 at 09:00; Stop at 19:03; Status DC Albuterol/ Ipratropium (Duoneb Neb) 1 ampule Q4HR NEB NEB Last administered on 09/19/16 15:07; Start 09/19/16 at 12:00; Stop 09/19/16 at 17:35; Status DC Albuterol Sulfate (Albuterol Neb) 1.25 mg Q2HR NEB PRN NEB SHORTNESS OF BREATH Last administered on 09/26/16 07:36; Start 09/19/16 at 12:00 Amlodipine Besylate (Norvasc) 5 mg BID PO Last administered on 09/26/16 08:46 ; Start 09/19/16 at 21:00 Apixaban (Eliquis) 5 mg DAILY PO Last administered on 09/20/16 08:56; Start 09/20/16 at 09:00; Stop 09/21/16 at 08:06; Status DC Aspirin (Ecotrin Ec) 162 mg DAILY PO Last administered on 09/20/16 08:56; Start 09/20/16 at 09:00; Stop 09/20/16 at 09:40; Status DC Lisinopril (Prinivil) 20 mg DAILY PO Last administered on 09/26/16 08:46; Start 09/20/16 at 09:00 Metoprolol Tartrate (Lopressor) 12.5 mg BID PO Last administered on 09/26/16 08:46; Start 09/19/16 at 21:00 Pravastatin Sodium (Pravachol) 80 mg HS PO Last administered on 09/25/16 21:34 ; Start 09/19/16 at 21:00 Olopatadine HCl (Patanol 0.1% Opth) 1 drop BID EACH EYE Last administered on 08:50; Start 09/19/16 at 21:00 Paroxetine HCl (Paxil) 20 mg DAILY PO Last administered on 09/26/16 08:46; Start 09/20/16 at 09:00 Furosemide (Lasix Inj) 20 mg DAILY IV PUSH Last administered on 09/20/16 08:56 ; Start 09/20/16 at 09:00; Status Hold Furosemide (Lasix) 20 mg DAILY PO Last administered on 09/20/16 08:56; Start at 09:00; Stop 09/21/16 at 06:52; Status DC Albuterol/ Ipratropium (Duoneb Neb) 1 ampule QID NEB NEB Last administered on 09/23/16 17:06; Start 09/19/16 at 20:00; Stop 09/23/16 at 20:00; Status DC Albuterol/ Ipratropium (Duoneb Neb) 1 ampule ONCE ONCE NEB ; Start 09/20/16 at 00:45; Stop 09/20/16 at 00:46; Status DC Aspirin (Ecotrin Ec) 81 mg DAILY PO Last administered on 09/26/16 08:46; Start 09/21/16 at 09:00 Budesonide/ Formoterol Fumarate (Symbicort 160-4.5 Inh) 2 puff Q12HR INH Last administered on 09/26/16 08:50; Start 09/20/16 at 21:00 Apixaban (Eliquis) 2.5 mg BID PO Last administered on 09/26/16 08:46; Start at 09:00 Acetaminophen (Tylenol) 650 mg Q8H PRN PO PAIN 1-5 Last administered on 10:20; Start 09/21/16 at 10:15 Acetaminophen/ Hydrocodone Bitart ([place] 5-325 Mg) 1 tab Q6H PRN PO PAIN 4-6 Last administered on 09/25/16 08:24; Start 09/21/16 at 11:30; Stop 09/25/16 at 08:45; Status DC Methylprednisolone Sodium Succinate (SoluMEDROL INJ) 40 mg BID IV PUSH ; Start 09/22/16 at 09:00; Stop 09/22/16 at 09:00; Status DC Azithromycin (Zithromax) 500 mg DAILY PO Last administered on 09/26/16 08:47; Start 09/21/16 at 19:00 Prednisone (Deltasone) 40 mg DAILY PO Last administered on 09/23/16 08:23; Start 09/21/16 at 19:00; Stop 09/23/16 at 19:54; Status DC Acetaminophen/ Hydrocodone Bitart ([place] 5-325 Mg) 2 tab Q6H PRN PO PAIN 7-10 Last administered on 09/24/16 05:56; Start 09/23/16 at 08:00; Stop 09/24/16 at 10: 11; Status DC Prednisone (Deltasone) 30 mg DAILY PO Last administered on 09/24/16 09:16; Start 09/24/16 at 09:00; Stop 09/24/16 at 19:25; Status DC Prednisone (Deltasone) 20 mg DAILY PO Last administered on 09/26/16 08:47; Start 09/25/16 at 09:00 Acetaminophen/ Hydrocodone Bitart ([place] 7.5-325 Mg) 1 tab Q6H PRN PO PAIN 6- 10 Last administered on 09/26/16 04:53; Start 09/25/16 at 08:45 A/P Assessment and Plan A/P - acute respiratory failure-due to acute bronchitis - improving slowly. V/Q scan with low probability for PE. keep on oxygen to keep O2 sat > 90%- continue with steroid and antibiotic; both were switched to po- continue neb treatment. one bottle of blood cultures with gram positive cocci- remains afebrile- likely contamination. echo was cancelled due to rib fractures. cardiology and pulmonary following. -left rib fractures after a fall fall precautions- incentive spirometry and pain control. -CAD- s/p stent placement; continue aspirin,eliquis ( the dose was reduced) , statin and BB -hypertension; resumed amlodipine,metoprolol and lisinopril -DVT prophylaxis ; on Eliquis -consulted PT -DNR status per my discussion with ( son). continue with conservative treatment. Discharge Planning d/w and the case management today. dc planning to SNF within the next one-two days if pain is better controlled and stable. Herminio Richards MD Sep 26, 2016 11:41
[2016-09-26] MEDS ORDERED: HYDR-3580 PO ×2 (11:43→11:44)
[2016-09-26] MEDS: PRAVASTATIN SOD 80 MG TAB PO SCH (21:58)
[2016-09-27] VITALS: BP 148/68; PULSE 60; RESP 20; TEMP 97.8; O2SAT 95
[2016-09-27 04:00] VITALS: BP 126/74; PULSE 60; RESP 18; TEMP 97.7; O2SAT 98
[2016-09-27 08:00] VITALS: BP 131/79; PULSE 60; RESP 18; TEMP 97.3; O2SAT 94
[2016-09-27] MEDS: BUDESONIDE-FORMOTEROL 160/4.5 MCG INHALER INH SCH (08:44)
[2016-09-27] MEDS: amLODIPine BESYLATE 5 MG TAB PO SCH (08:44)
[2016-09-27] MEDS: AZITHROMYCIN 250 MG TAB PO SCH (08:44)
[2016-09-27] MEDS: OLOPATADINE HCL 0.1% OPHT SOLN 5 ML BTL EACH EYE SCH (08:44)
[2016-09-27] MEDS: predniSONE 10 MG TAB PO SCH (08:44)
[2016-09-27] MEDS: METOPROLOL TARTRATE 25 MG TAB PO SCH (08:45)
[2016-09-27] MEDS: LISINOPRIL 20 MG TAB PO SCH (08:45)
[2016-09-27] MEDS: APIXABAN 2.5 MG TABLET PO SCH (08:45)
[2016-09-27] MEDS: PARoxetine HCL 20 MG TAB PO SCH (08:45)
[2016-09-27] MEDS: ASPIRIN EC 81 MG TABEC PO SCH (08:45)
--- NOTE | 2016-09-27 09:22 | HHI.PR ---
Subjective Remarks in no acute distress. complaining of pain to the left chest wall. no other complaints. afebrile. Objective Vitals Vital Signs Date Time Temp Pulse Resp B/P Pulse Ox O2 Delivery O2 Flow Rate FiO2 09/27/16 08:00 97.3 60 18 131/79 94 09/27/16 04:00 97.7 60 18 126/74 98 09/27/16 00:00 97.8 60 20 148/68 95 09/26/16 20:00 97.3 60 18 107/59 98 09/26/16 17:57 94 Nasal Cannula 4.00 09/26/16 16:03 98.2 61 20 123/74 94 09/26/16 12:03 97.5 60 22 112/66 94 I/O 09/26/16 09/26/16 09/26/16 09/27/16 09/27/16 09/27/16 07:00 15:00 23:00 07:00 15:00 23:00 Intake Total 240 ml 420 ml 120 ml 80 ml Output Total 250 ml 0 ml 250 ml Balance -10 ml 420 ml 120 ml -170 ml Intake Oral 240 ml 420 ml 120 ml 80 ml Output Urine Total 250 ml 0 ml 250 ml # Voids 5 # Bowel Movements 0 0 0 0 Imaging Last Impressions Chest X-Ray 09/25/16 0600 Signed Impressions: Service Date/Time: September 06:47 - CONCLUSION: Essentially stable chest. No pneumothorax Hunter Bach MD Wrist X-Ray 09/21/16 0000 Signed Impressions: Service Date/Time: Wednesday, September 21, 2016 09:08 - CONCLUSION: 1. No acute left wrist abnormality is identified. 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 2. Severe arterial vascular calcification. Sotero Kapoor MD Ribs X-Ray 09/21/16 0000 Signed Impressions: Service Date/Time: Wednesday, September 21, 2016 09:01 - CONCLUSION: 1. Minimally displaced left seventh and eighth rib fractures. 2. There is subcutaneous emphysema along the left chest wall and supraclavicular region. However, no pneumothorax is identified. Sotero Kapoor MD Lung Scan- Nuclear Medicine 09/19/16 0000 Signed Impressions: Service Date/Time: Monday, September 19, 2016 18:44 - CONCLUSION: Low probability pulmonary embolism. Dieter Cao MD Objective Remarks GENERAL: with some sob but with no acute distress. CARDIOVASCULAR: Regular rate and regular rhythm without murmurs, gallops, or rubs. RESPIRATORY:wheezing has improved. tenderness on left chest wall. GASTROINTESTINAL: Abdomen soft, non-tender, nondistended. Normal, active bowel sounds MUSCULOSKELETAL: Extremities without clubbing, cyanosis, or edema. NEURO: awake and alert. Procedures none Medications and IVs Current Medications Sodium Chloride (NS Flush) 2 ml UNSCH PRN IVF FLUSH AFTER USING IV ACCESS Last administered on 09/19/16 08:45; Start 09/19/16 at 08:45 Methylprednisolone Sodium Succinate (SoluMEDROL INJ) 125 mg ONCE ONCE IVP Last administered on 09/19/16 09:06; Start 09/19/16 at 09:00; Stop 09/19/16 at 09: 01; Status DC Albuterol Sulfate 2.5 mg 2.5 mg Q15M INH Last administered on 09/19/16 09:46; Start 09/19/16 at 09:00; Stop 09/19/16 at 09:31; Status DC Azithromycin/ Sodium Chloride (Zithromax Inj/ NS 250 ml Inj) 250 ml @ 250 mls/ hr ONCE ONCE IV Last administered on 09/19/16 09:06; Start 09/19/16 at 09:00; Stop 09/19/16 at 09:59; Status DC Furosemide (Lasix Inj) 20 mg ONCE ONCE IV PUSH Last administered on 09/19/16 11:11; Start 09/19/16 at 10:30; Stop 09/20/16 at 09:40; Status DC Methylprednisolone Sodium Succinate 40 mg 40 mg Q8HR IV PUSH Last administered on 09/20/16 21:42; Start 09/19/16 at 17:00; Stop 09/21/16 at 16:06; Status DC Azithromycin/ Sodium Chloride (Zithromax Inj/ NS 250 ml Inj) 250 ml @ 250 mls/ hr Q24H IV Last administered on 09/20/16 08:55; Start 09/20/16 at 09:00; Stop at 19:03; Status DC Albuterol/ Ipratropium (Duoneb Neb) 1 ampule Q4HR NEB NEB Last administered on 09/19/16 15:07; Start 09/19/16 at 12:00; Stop 09/19/16 at 17:35; Status DC Albuterol Sulfate (Albuterol Neb) 1.25 mg Q2HR NEB PRN NEB SHORTNESS OF BREATH Last administered on 09/26/16 07:36; Start 09/19/16 at 12:00 Amlodipine Besylate (Norvasc) 5 mg BID PO Last administered on 09/27/16 08:44 ; Start 09/19/16 at 21:00 Apixaban (Eliquis) 5 mg DAILY PO Last administered on 09/20/16 08:56; Start 09/20/16 at 09:00; Stop 09/21/16 at 08:06; Status DC Aspirin (Ecotrin Ec) 162 mg DAILY PO Last administered on 09/20/16 08:56; Start 09/20/16 at 09:00; Stop 09/20/16 at 09:40; Status DC Lisinopril (Prinivil) 20 mg DAILY PO Last administered on 09/27/16 08:45; Start 09/20/16 at 09:00 Metoprolol Tartrate (Lopressor) 12.5 mg BID PO Last administered on 09/27/16 08:45; Start 09/19/16 at 21:00 Pravastatin Sodium (Pravachol) 80 mg HS PO Last administered on 09/26/16 21:58 ; Start 09/19/16 at 21:00 Olopatadine HCl (Patanol 0.1% Opth) 1 drop BID EACH EYE Last administered on 08:44; Start 09/19/16 at 21:00 Paroxetine HCl (Paxil) 20 mg DAILY PO Last administered on 09/27/16 08:45; Start 09/20/16 at 09:00 Furosemide (Lasix Inj) 20 mg DAILY IV PUSH Last administered on 09/20/16 08:56 ; Start 09/20/16 at 09:00; Status Hold Furosemide (Lasix) 20 mg DAILY PO Last administered on 09/20/16 08:56; Start at 09:00; Stop 09/21/16 at 06:52; Status DC Albuterol/ Ipratropium (Duoneb Neb) 1 ampule QID NEB NEB Last administered on 09/23/16 17:06; Start 09/19/16 at 20:00; Stop 09/23/16 at 20:00; Status DC Albuterol/ Ipratropium (Duoneb Neb) 1 ampule ONCE ONCE NEB ; Start 09/20/16 at 00:45; Stop 09/20/16 at 00:46; Status DC Aspirin (Ecotrin Ec) 81 mg DAILY PO Last administered on 09/27/16 08:45; Start 09/21/16 at 09:00 Budesonide/ Formoterol Fumarate (Symbicort 160-4.5 Inh) 2 puff Q12HR INH Last administered on 09/27/16 08:44; Start 09/20/16 at 21:00 Apixaban (Eliquis) 2.5 mg BID PO Last administered on 09/27/16 08:45; Start at 09:00 Acetaminophen (Tylenol) 650 mg Q8H PRN PO PAIN 1-5 Last administered on 10:20; Start 09/21/16 at 10:15 Acetaminophen/ Hydrocodone Bitart ([place] 5-325 Mg) 1 tab Q6H PRN PO PAIN 4-6 Last administered on 09/25/16 08:24; Start 09/21/16 at 11:30; Stop 09/25/16 at 08:45; Status DC Methylprednisolone Sodium Succinate (SoluMEDROL INJ) 40 mg BID IV PUSH ; Start 09/22/16 at 09:00; Stop 09/22/16 at 09:00; Status DC Azithromycin (Zithromax) 500 mg DAILY PO Last administered on 09/27/16 08:44; Start 09/21/16 at 19:00 Prednisone (Deltasone) 40 mg DAILY PO Last administered on 09/23/16 08:23; Start 09/21/16 at 19:00; Stop 09/23/16 at 19:54; Status DC Acetaminophen/ Hydrocodone Bitart ([place] 5-325 Mg) 2 tab Q6H PRN PO PAIN 7-10 Last administered on 09/24/16 05:56; Start 09/23/16 at 08:00; Stop 09/24/16 at 10: 11; Status DC Prednisone (Deltasone) 30 mg DAILY PO Last administered on 09/24/16 09:16; Start 09/24/16 at 09:00; Stop 09/24/16 at 19:25; Status DC Prednisone (Deltasone) 20 mg DAILY PO Last administered on 09/27/16 08:44; Start 09/25/16 at 09:00 Acetaminophen/ Hydrocodone Bitart ([place] 7.5-325 Mg) 1 tab Q6H PRN PO PAIN 6- 10 Last administered on 09/26/16 21:57; Start 09/25/16 at 08:45 A/P Assessment and Plan A/P - acute respiratory failure-due to acute bronchitis - improving slowly. V/Q scan with low probability for PE. keep on oxygen to keep O2 sat > 90%- continue with steroid and antibiotic; both were switched to po- continue neb treatment. one bottle of blood cultures with gram positive cocci- remains afebrile- likely contamination. echo was cancelled due to rib fractures. cardiology and pulmonary following. -left rib fractures after a fall fall precautions- incentive spirometry and pain control; will increase norco today. -CAD- s/p stent placement; continue aspirin,eliquis ( the dose was reduced) , statin and BB -hypertension; resumed amlodipine,metoprolol and lisinopril -DVT prophylaxis ; on Eliquis -consulted PT -DNR status per my discussion with ( son). continue with conservative treatment. Discharge Planning d/w today. will dc to SNF today- consideration of palliative care if he declines. see med list. f/u; pcp. Herminio Richards MD Sep 27, 2016 09:22
[2016-09-27] MEDS ORDERED: ACETAMINOPHEN/HYDROcodone 325 MG/10 MG TAB PO PRN (09:30)
[2016-09-27] MEDS ORDERED: SYMB160A INH (11:45)
[2016-09-27] MEDS ORDERED: APIX2.5T PO (11:45)
[2016-09-27] MEDS ORDERED: ASPI-99 PO (11:45)
[2016-09-27] MEDS ORDERED: PRED5TAB PO (11:47)
--- NOTE | 2016-09-27 11:48 | HHI.DS ---
Discharge Summary Admission Date Sep 19, 2016 at 14:48 Discharge Date: Sep 27, 2016 Admitting Diagnosis HYPOXEMIA NOS, AFIB WITH CVR (1) Hypoxia ICD Code: R09.02 Diagnosis: Principal Procedures none Brief History - From Admission patient is a 89 y/o male with multiple comorbidities including hypertension, CAD , hyperlipidemia, aortic stenosis, stroke, CAD s/p multiple drug-eluting stents A. fib with bifascicular block s/p VVI Pacemaker placement, and dementia was brought to ER with sob. patient is not a good historian and most of the information was obtained from the ER and medical record. apparently he was found to have a pulse-ox of 80's. he says that ' all I know is they brought me to the hospital'. he denies any chest pain, fever or cough. he says that ' his breathing is a little easier now'. Imaging Last Impressions Chest X-Ray 09/25/16 0600 Signed Impressions: Service Date/Time: September 06:47 - CONCLUSION: Essentially stable chest. No pneumothorax Hunter Bach MD Wrist X-Ray 09/21/16 0000 Signed Impressions: Service Date/Time: Wednesday, September 21, 2016 09:08 - CONCLUSION: 1. No acute left wrist abnormality is identified. 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 2. Severe arterial vascular calcification. Sotero Kapoor MD Ribs X-Ray 09/21/16 0000 Signed Impressions: Service Date/Time: Wednesday, September 21, 2016 09:01 - CONCLUSION: 1. Minimally displaced left seventh and eighth rib fractures. 2. There is subcutaneous emphysema along the left chest wall and supraclavicular region. However, no pneumothorax is identified. Sotero Kapoor MD Lung Scan- Nuclear Medicine 09/19/16 0000 Signed Impressions: Service Date/Time: Monday, September 19, 2016 18:44 - CONCLUSION: Low probability pulmonary embolism. Dieter Cao MD PE at Discharge GENERAL: with some sob but with no acute distress. CARDIOVASCULAR: Regular rate and regular rhythm without murmurs, gallops, or rubs. RESPIRATORY:wheezing has improved. tenderness on left chest wall. GASTROINTESTINAL: Abdomen soft, non-tender, nondistended. Normal, active bowel sounds MUSCULOSKELETAL: Extremities without clubbing, cyanosis, or edema. NEURO: awake and alert. Hospital Course - acute respiratory failure-due to acute bronchitis - improving slowly. V/Q scan with low probability for PE. keep on oxygen to keep O2 sat > 90%- continue with steroid and antibiotic; both were switched to po- continue neb treatment. one bottle of blood cultures with gram positive cocci- remains afebrile- likely contamination. echo was cancelled due to rib fractures. cardiology and pulmonary following. -left rib fractures after a fall fall precautions- incentive spirometry and pain control; will increase norco today. -CAD- s/p stent placement; continue aspirin,eliquis ( the dose was reduced) , statin and BB -hypertension; resumed amlodipine,metoprolol and lisinopril -DVT prophylaxis ; on Eliquis -consulted PT -DNR status per my discussion with ( son). Pt Condition on Discharge: Guarded Discharge Disposition: Discharge to SNF Discharge Time: <= 30 minutes Discharge Instructions DIET: Follow Instructions for: Heart Healthy Diet Activities you can perform: Regular-No Restrictions Follow up Referrals: PCP Follow-up New Medications: Prednisone (Prednisone) 5 Mg Tab 5 MG PO DIRECTED 10 mg po daily for two days then 5 mg po daily for two days then stop. Shortness of Breath Days 4 Ref 0 TAB Apixaban (Eliquis) 2.5 Mg Tab 2.5 MG PO BID anticoagulation Days 30 Ref [address] (Adult Aspirin EC Low Strength) 81 Mg Tabec 81 MG PO DAILY antiplatelet Days 30 Ref 0 TAB Budesonide-Formoterol Inh (Symbicort Inh) 160-4.5 Mcg/Act Aero 2 PUFF INH Q12HR Shortness of Breath #1 Ref 0 INHALER Hydrocodone-Acetaminophen (Hydrocodone-Acetaminophen) 7.5-325 mg Tab 1 TAB PO Q6H PRN pain 4-10 #20 Ref 0 TAB Continued Medications: Acetaminophen (Tylenol) 325 Mg Tab 650 MG PO BID Ref 0 TAB Amlodipine (Amlodipine) 5 Mg Tab 5 MG PO BID Blood Pressure Management #30 Ref 0 TAB Bisacodyl Supp (Dulcolax Supp) 10 Mg Supp 10 MG HI DAILY PRN CONSTIPATION #12 Ref 0 SUPP Cholecalciferol (Vitamin D3) 1,000 Unit Tab 1000 UNITS PO DAILY Nutritional Supplement #1 Ref 0 BOTTLE Cyanocobalamin Inj (Cyanocobalamin Inj) 1,000 Mcg/Ml Inj 1000 MCG SQ MONTHLY #1 Ref 0 VIAL Ketotifen Opth Drops ([place] Opth Drops) 0.025% Drops 1 DROP EACH EYE BID #10 ML Lisinopril (Lisinopril) 20 Mg Tab 20 MG PO DAILY #30 Ref 0 TAB Menthol Topical (Biofreeze Topical) 4 % Gel 1 APPLIC TOPICAL BID PRN PAIN #6 Ref 0 TUBE Metoprolol Tartrate (Metoprolol Tartrate) 25 Mg Tab 12.5 MG PO BID #60 Ref 0 TAB Paroxetine (Paroxetine) 20 Mg Tab 20 MG PO DIRECTED 1/2 tablet daily for 1 week (10mg) then increase to 1 tablet daily (20mg) #30 Ref 5 TAB Polyethylene Glycol 3350 Powder (Miralax Powder) 17 Gm Powd 17 GM PO DAILY Mix and dissolve one measuring cap-ful (17 grams) in water or juice. Constipation #1 Ref 0 CAN Pravastatin (Pravastatin) 80 Mg Tab 80 MG PO HS Cholesterol Management #30 Ref 0 TAB Discontinued Medications: Apixaban (Eliquis) 5 Mg Tab 5 MG PO DAILY Blood Clot Prevention #[address] (Aspirin EC) 81 Mg Tabdr 162 MG PO DAILY #30 TAB Herminio Richards MD Sep 27, 2016 11:48
--- NOTE | 2016-09-27 11:48 | HHI.DCPOC ---
Discharge Care Plan Diagnosis: (1) Hypoxia Your Health Problems Are: Chronic Pain Shortness of Breath Goals to Promote Your Health * To prevent worsening of your condition and complications * To maintain your health at the optimal level Directions to Meet Your Goals Take your medications as prescribed Follow your dietary instruction Follow activity as directed Keep your appointments as scheduled Take your immunizations and boosters as scheduled If your symptoms worsen call your PCP, if no PCP go to Urgent Care Center or Emergency Room Smoking is Dangerous to Your Health. Avoid second hand smoke Call the 24-hour hour crisis hotline for domestic abuse at Herminio Richards MD Sep 27, 2016 11:48
[2016-09-27 12:00] VITALS: BP 127/68; PULSE 60; RESP 18; TEMP 98.6; O2SAT 94
[2016-09-27 16:00] VITALS: BP 124/62; PULSE 62; RESP 18; TEMP 98.1; O2SAT 95
[2016-09-29] MEDS ORDERED: IPRASOL INH (12:05)
[2016-09-29] MEDS ORDERED: OXYGENTANK NAS.CANULA (13:11)
== END 2016-09-27 17:03 | DRG 189 ==
LOC: NEPE 08:19 → NEDA 11:34 → OBSVTOIN 14:48 → NEPHCDU 14:56 → N04B 21:58
PROVIDERS: ADMIT Internal Medicine; ATTEND Internal Medicine
DX: J96.01 Acute respiratory failure with hypoxia (principal); I48.2 Chronic atrial fibrillation; I45.2 Bifascicular block; F03.90 Unspecified dementia, unspecified severity, without behavioral disturbance, psychotic disturbance, mood disturbance, and anxiety; E86.0 Dehydration; I11.0 Hypertensive heart disease with heart failure; I50.9 Heart failure, unspecified; F32.9 Major depressive disorder, single episode, unspecified; Z78.1 Physical restraint status; E78.5 Hyperlipidemia, unspecified; S22.42XA Multiple fractures of ribs, left side, initial encounter for closed fracture; F41.9 Anxiety disorder, unspecified; K21.9 Gastro-esophageal reflux disease without esophagitis; I35.0 Nonrheumatic aortic (valve) stenosis; J20.9 Acute bronchitis, unspecified; I25.10 Atherosclerotic heart disease of native coronary artery without angina pectoris; Z86.73 Personal history of transient ischemic attack (TIA), and cerebral infarction without residual deficits; M50.90 Cervical disc disorder, unspecified, unspecified cervical region; I73.9 Peripheral vascular disease, unspecified; S61.512A Laceration without foreign body of left wrist, initial encounter; S61.217A Laceration without foreign body of left little finger without damage to nail, initial encounter; Z87.891 Personal history of nicotine dependence; Z66 Do not resuscitate; Z95.5 Presence of coronary angioplasty implant and graft; Z79.82 Long term (current) use of aspirin; Z95.0 Presence of cardiac pacemaker; Z79.01 Long term (current) use of anticoagulants; Z86.718 Personal history of other venous thrombosis and embolism; W01.0XXA Fall on same level from slipping, tripping and stumbling without subsequent striking against object, initial encounter; Y92.230 Patient room in hospital as the place of occurrence of the external cause
CPT/HCPCS: 36600; 71010; 71020; 71100; 73110; 76937; 78582; 80048; 80053; 82550; 82552; 82805; 83880; 84484; 85025; 85379; 85610; 85730; 87040; 87185; 87205; 87804; 93005; 94150; 94640; 94664; 96365; 96375; A9540; A9567; J0456; J1940; J2920; J2930; J7050; J7512; J7613